=== PATIENT | female | born 1960 | race Caucasian/White ===

== ENCOUNTER → 2016-12-23 | Outpatient (CLI) | payer OTHER ==
[2016-12-23 09:30] LABS: Basophils # (A) 0.1 k/uL (0-0.2); Basophils % (A) 1 %; CH 31.6; CHCM 33.7; Eosinophils # (A) 0.2 k/uL (0-0.7); Eosinophils % (A) 3 %; HCT 45.4 % (34.0-46.0); HDW 2.25; HGB 15.4 gm/dL (11.4-16.0); Luc # (Auto) 0.13; Luc % (Auto) 2; Lymphocytes # (A) 3.4 k/uL (1.0-4.8); Lymphocytes % (A) 42 %; MCH 31.8 pg (25.0-35.0); MCHC 33.8 g/dL (31.0-37.0); Mean Platelet Volume 7.3; Monocytes # (A) 0.3 k/uL (0-1.0); Monocytes % (A) 4 %; Neutrophils # (A) 3.9 k/uL (1.3-7.7); Neutrophils % (A) 48 %; RBC 4.83 m/uL (3.80-5.40); RDW 13.6 % (11.5-15.5); WBC 8.1 k/uL (3.8-10.6); WBC (Perox) 7.61
[2016-12-23 11:07] LABS: Vitamin B12 590 pg/mL (239-931)
[2016-12-23 11:25] LABS: ALT 40 U/L (9-52); AST 27 U/L (14-36); Alkaline Phosphatase 89 U/L (38-126); Anion Gap 11 mmol/L; Blood Urea Nitrogen 17 mg/dL (7-17); Carbon Dioxide 27 mmol/L (22-30); Chloride 104 mmol/L (98-107); Cholesterol 178 mg/dL (<200); Creatine Kinase 60 U/L (30-135); Glucose 91 mg/dL (74-99); HDL Cholesterol 61 mg/dL (40-60); Iron 142 ug/dL (37-170); Non-African American GFR(MDRD) >60 (>60 ml/min/1.73 sqM); Sodium 142 mmol/L (137-145); Total Bilirubin 0.6 mg/dL (0.2-1.3); Total Protein 7.2 g/dL (6.3-8.2); Triglycerides 139 mg/dL (<150)
[2016-12-23 11:34] LABS: % Iron Saturation 56.8 % (20-50); Total Iron Binding Capacity 250 ug/dL (265-497)
[2016-12-23 12:26] LABS: Erythrocyte Sedimentation Rate 8 mm/hr (0-20)
== END | disposition home or self-care (01) ==
LOC: LABWHC1 08:55
PROVIDERS: ATTEND Family Medicine
DX: E78.5 Hyperlipidemia, unspecified (principal); R53.83 Other fatigue
CPT/HCPCS: 36415; 80053; 80061; 82306; 82550; 82607; 83540; 83550; 84439; 84443; 85025; 85652

== ENCOUNTER → 2016-12-30 | Outpatient (CLI) | payer OTHER ==
--- NOTE | 2016-12-31 14:24 | MM ---
Reason for exam: screening (asymptomatic). Last mammogram was performed 2 years and 10 months ago. History: Patient is postmenopausal and has history of colon cancer at age 47. Physical Findings: A clinical breast exam by your physician is recommended on an annual basis and results should be correlated with mammographic findings. MG Screening Mammo w CAD Bilateral CC and MLO view(s) were taken. Prior study comparison: March 10, 2014, bilateral MG screening mammo w CAD. December 31, 2011, bilateral digital screening mammo w/CAD. There are scattered fibroglandular densities. Finding: There are regional calcifications in the left breast consistent with sclerosing adenosis. No significant changes in finding since March 10, 2014 and December 31, 2011. ASSESSMENT: Benign, BI-RAD 2 RECOMMENDATION: Routine screening mammogram of both breasts in 1 year.
== END ==
LOC: RADMAMWWP 16:20
PROVIDERS: ATTEND Family Medicine
DX: Z12.31 Encounter for screening mammogram for malignant neoplasm of breast (principal)

== ENCOUNTER → 2017-12-31 | Outpatient (CLI) | payer BC ==
--- NOTE | 2017-12-31 11:49 | BD ---
EXAMINATION TYPE: Axial Bone Density DATE OF EXAM: 12/31/2017 CLINICAL HISTORY: Height: 64.75 Weight: 124 FRAX RISK QUESTIONS: Alcohol (3 or more units per day): no Family History (Parent hip fracture): no Glucocorticoids (More than 3mos): no (Ex: prednisone, prednisolone, methylprednisolone, dexamethasone, and hydrocortisone). History of Fracture in Adulthood: finger Secondary Osteoporosis: 1. Type 1 Diabetes: no 2. Hyperthyroidism: no 3. Menopause before 45: no 4. Malnutrition: no 5. Chronic liver disease: no Rheumatoid Arthritis: no Current Tobacco Use: no RISK FACTORS HISTORY OF: Family History of Osteoporosis: unknown Active: yes Diet low in dairy products/other sources of calcium: no Postmenopausal woman: yes Take estrogen and/or progesterone medications: no Lost more than 2 inches in height since high school: unsure Frequent falls: no Poor Health: no Hyperparathyroidism: no Adrenal Insufficiency: no MEDICATIONS: Prednisone or other steroids: no Thyroid Medications: no Osteoporosis Medications: no Additional Medications: blood pressure meds, cholesterol meds Additional History: EXAM MEASUREMENTS: Bone mineral densitometry was performed using the [employer] System. Bone mineral density as measured about the Lumbar spine is: ----- L1-L4(G/cm2): 1.139 T Score Values are as follows: ----- L2: -2.0 ----- L3: -0.4 ----- L4: 1.8 ----- L1-L4: -0.3 Bone mineral density has: Decreased -1.9% since study of: 12/31/2011 Bone mineral density about the R hip (g/cm2): 0.757 Bone mineral density about the L hip (g/cm2): 0.745 T Score values are as follows: -----R Neck: -2.0 -----L Neck: -2.1 -----R Total: -1.5 -----L Total: -1.3 Bone mineral density has: Decreased -14.3% since study of: 12/31/2011 IMPRESSION: Osteopenia about the bilateral proximal femora. NOTE: T-SCORE=SD OF THE YOUNG ADULT MEAN.
== END | disposition home or self-care (01) ==
LOC: RADBDWWP 08:19
PROVIDERS: ATTEND Obstetrics & Gynecology
DX: M85.852 Other specified disorders of bone density and structure, left thigh (principal); M85.851 Other specified disorders of bone density and structure, right thigh
CPT/HCPCS: 77080

== ENCOUNTER → 2017-12-31 | Outpatient (CLI) | payer BC ==
--- NOTE | 2018-01-01 10:24 | MM ---
Reason for exam: screening (asymptomatic). Last mammogram was performed 1 year ago. History: Patient is postmenopausal and has history of colon cancer at age 47. Physical Findings: A clinical breast exam by your physician is recommended on an annual basis and results should be correlated with mammographic findings. MG 3D Screening Mammo W/Cad Bilateral CC and MLO view(s) were taken. Prior study comparison: December 30, 2016, bilateral MG screening mammo w CAD. March 10, 2014, bilateral MG screening mammo w CAD. The breast tissue is heterogeneously dense. This may lower the sensitivity of mammography. Finding: There are typically benign punctate, diffuse/scattered calcifications in both breasts. No suspicious abnormality. No significant changes in finding since December 30, 2016 and March 10, 2014. ASSESSMENT: Benign, BI-RAD 2 RECOMMENDATION: Routine screening mammogram of both breasts in 1 year.
== END | disposition home or self-care (01) ==
LOC: RADMAMWWP 08:06
PROVIDERS: ATTEND Obstetrics & Gynecology
DX: Z12.31 Encounter for screening mammogram for malignant neoplasm of breast (principal)
CPT/HCPCS: 77063; 77067

== ENCOUNTER 2018-10-07 09:27 | Day surgery (SDC) | payer BC, OTHER ==
[2018-10-05 11:18] VITALS: BMI 20.7
[~2018-10-07 09:27] MED LIST: LACTATED RINGERS 1,000 ML IV SCH; LIDOCAINE 1% 20 ML VIAL (10MG/ML) FOR IV START INTRADERMA PRN
[2018-10-07] MEDS ORDERED: LACTATED RINGERS 1,000 ML IV ONE (09:46)
[2018-10-07 09:47] VITALS: RESP 18; TEMP 97.8
[2018-10-07] MEDS ORDERED: PROPOFOL 10 MG/ML 20 ML VIAL IV ONE (11:00)
--- NOTE | 2018-10-07 11:14 | P.PCN ---
Date of Procedure: 10/07/18 Procedure(s) Performed: BRIEF HISTORY: Patient is a 58-year-old pleasant female, scheduled for an elective colonoscopy as a part of surveillance of prior history of colon cancer diagnosed 10 years ago. Her last surveillance colonoscopy was 3 years ago in [facility]. PROCEDURE PERFORMED: Colonoscopy. PREOPERATIVE DIAGNOSIS: History of colon cancer diagnosed 10 years ago. IV sedation per Anesthesia. PROCEDURE: After informed consent was obtained, the patient, was brought into the endoscopy unit. IV sedation was administered by Anesthesia under continuous monitoring. Digital rectal examination was normal. Initially the Olympus CF-160 flexible video colonoscope was then inserted in the rectum, gradually advanced into the cecum without any difficulty. Careful examination was performed as the scope was gradually being withdrawn. Ileocecal valve and the appendiceal orifice were visualized and appeared normal. Prep was excellent. Mucosa of the cecum, ascending colon, transverse colon, descending colon, sigmoid colon, and rectum appeared normal. Retroflexion was performed in the rectum and no lesions were seen. The patient tolerated the procedure well. IMPRESSION: Normal-appearing colon from rectum to cecum with no evidence of colorectal neoplasia . RECOMMENDATIONS: Findings of this examination were discussed with the patient as her family. She was advised to have a repeat surveillance coloscopy in 3 years.
[2018-10-07 11:50] VITALS: BP 95/66; PULSE 80
== END 2018-10-07 11:45 | disposition home or self-care (01) ==
LOC: ORWHC2ENDO 09:27
PROVIDERS: ATTEND Internal Medicine Gastroenterology
DX: Z12.11 Encounter for screening for malignant neoplasm of colon (principal); I25.10 Atherosclerotic heart disease of native coronary artery without angina pectoris; I10 Essential (primary) hypertension; E78.5 Hyperlipidemia, unspecified; H40.9 Unspecified glaucoma; H54.40 Blindness, one eye, unspecified eye; I73.00 Raynaud's syndrome without gangrene; G47.33 Obstructive sleep apnea (adult) (pediatric); F41.9 Anxiety disorder, unspecified; K21.9 Gastro-esophageal reflux disease without esophagitis; Z79.82 Long term (current) use of aspirin; Z79.1 Long term (current) use of non-steroidal anti-inflammatories (NSAID); Z85.038 Personal history of other malignant neoplasm of large intestine; Z86.711 Personal history of pulmonary embolism; Z79.899 Other long term (current) drug therapy; Z79.01 Long term (current) use of anticoagulants
CPT/HCPCS: J2704; G0105; 45378

== ENCOUNTER → 2019-03-11 | Outpatient (CLI) | payer OTHER ==
--- NOTE | 2019-03-12 13:49 | MM ---
Reason for exam: screening (asymptomatic). Last mammogram was performed 1 year and 2 months ago. History: Patient is postmenopausal and has history of colon cancer at age 47. Physical Findings: A clinical breast exam by your physician is recommended on an annual basis and results should be correlated with mammographic findings. MG 3D Screening Mammo W/Cad Bilateral CC and MLO view(s) were taken. XCCL view(s) were taken of the right breast. Prior study comparison: December 31, 2017, bilateral MG 3d screening mammo w/cad. December 30, 2016, bilateral MG screening mammo w CAD. There are scattered fibroglandular densities. No significant changes when compared with prior studies. ASSESSMENT: Benign, BI-RAD 2 RECOMMENDATION: Routine screening mammogram of both breasts in 1 year.
== END | disposition home or self-care (01) ==
LOC: RADMAMWWP 11:53
PROVIDERS: ATTEND Family Medicine
DX: Z12.31 Encounter for screening mammogram for malignant neoplasm of breast (principal)
CPT/HCPCS: 77063; 77067

== ENCOUNTER 2019-03-14 16:41 | Inpatient (IN) | payer OTHER ==
[2019-03-14] MEDS ORDERED: ALBUTEROL NEBULIZED 2.5 MG/3 ML INHALATION STA (17:23)
[2019-03-14] MEDS ORDERED: IPRATROPIUM 0.5 MG/2.5 ML NEBU INHALATION STA (17:23)
[2019-03-14] MEDS ORDERED: AZITHROMYCIN 500 MG in SODIUM CHLORIDE 0.9% 250 ML IVPB STA (17:23)
[2019-03-14] MEDS ORDERED: SODIUM CHLORIDE 0.9% 1,000 ML IV STA (17:23)
[2019-03-14] MEDS ORDERED: methylPREDNISolone SOD SUCCI 125 MG/2 ML VIAL IV STA (17:23)
--- NOTE | 2019-03-14 17:44 | XR ---
EXAMINATION TYPE: XR chest 2V DATE OF EXAM: 03/14/2019 COMPARISON: 12/14/2015 HISTORY: Short of breath TECHNIQUE: Frontal and lateral views of the chest are obtained. FINDINGS: There is a mild infiltrate in the midlung palma bilaterally. Heart and mediastinum are no rmal. There is no pleural effusion. There are no hilar masses. There is also a minimal infiltrate at the right lung apex. Bony thorax is intact. IMPRESSION: Bilateral mild pulmonary infiltrates consistent with pneumonia. No heart failure. Normal heart. Pneumonia is ne w compared to old exam.
--- NOTE | 2019-03-14 18:17 | ED ---
URI HPI - General Chief Complaint: Upper Respiratory Infection Stated Complaint: SOB Time Seen by Provider: 03/14/19 17:05 Source: patient, RN notes reviewed, old records reviewed Mode of arrival: ambulatory Limitations: no limitations - History of Present Illness Initial Comments: This is a 4-year-old female the ER for evaluation history of smoking. Patient is recent travel history no sick contacts complaining of increased cough and congestion. Patient has persistent cough currently. Patient was seen by urgent care, diagnosed of bronchitis given antibiotics as she had taken appropriately not been filled appropriate, patient has not been able to smoke secondary to shortness of breath shortness breath is been persistent. She believes that she started of fever and significant shortness of breath with exertion. No current chest pain MD Complaint: fever, cough, nasal congestion -: days(s) Severity: moderate Consistency: constant Improves With: nothing Associated Symptoms: fever, chills, cough, shortness of breath Treatments Prior to Arrival: none - Related Data Home Medications Medication Instructions Recorded Confirmed Celecoxib [CeleBREX] 200 mg PO DAILY 12/14/15 03/14/19 DULoxetine HCL [Cymbalta] 60 mg PO QAM 12/14/15 03/14/19 Losartan [Cozaar] 50 mg PO DAILY 12/14/15 03/14/19 Omeprazole 20 mg PO DAILY 12/14/15 03/14/19 Rivaroxaban [Xarelto] 20 mg PO HS 12/14/15 03/14/19 Timolol 0.5% Ophth Soln [Timoptic 1 drop BOTH EYES BID 12/14/15 03/14/19 0.5% Ophth Soln] Zolpidem [Ambien] 10 mg PO HS 12/14/15 03/14/19 traZODone HCL [Desyrel] 100 mg PO HS PRN 12/14/15 03/14/19 Aspirin [Adult Low Dose Aspirin EC] 81 mg PO DAILY 05/21/17 03/14/19 Atorvastatin [Lipitor] 40 mg PO DAILY 05/21/17 03/14/19 Isosorbide Mononitrate ER [Imdur] 30 mg PO DAILY 05/21/17 03/14/19 amLODIPine [Norvasc] 5 mg PO QAM 05/21/17 03/14/19 DULoxetine HCL [Cymbalta] 30 mg PO HS 10/05/18 03/14/19 Hydrochlorothiazide [Hydrodiuril] 25 mg PO DAILY 10/05/18 03/14/19 Albuterol Inhaler [Ventolin Hfa 1 - 2 puff INHALATION RT-Q6H PRN 03/14/19 03/14/19 Inhaler] Cyclobenzaprine [Flexeril] 10 mg PO DAILY 03/14/19 03/14/19 Sulfamethoxazole/Trimethoprim 1 tab PO Q12H 03/14/19 03/14/19 [Bactrim DS 800-160 mg] methylPREDNISolone [Medrol Dose See Taper PO DIRECTED 03/14/19 03/14/19 Pack] Allergies Allergy/AdvReac Type Severity Reaction Status Date / Time No Known Allergies Allergy Verified 03/14/19 17:17 Review of Systems ROS Statement: Those systems with pertinent positive or pertinent negative responses have been documented in the HPI. ROS Other: All systems not noted in ROS Statement are negative. Past Medical History Past Medical History: Coronary Artery Disease (CAD), Cancer, Eye Disorder, GERD/Reflux, Hyperlipidemia, Hypertension, Pulmonary Embolus (PE), Sleep Apnea/CPAP/BIPAP Additional Past Medical History / Comment(s): Pulmonary Embolism, HX 2 clots inferior vena cava, colo/rectal cancer-surgically removed 2008 est, back pain from arthritis, R eye blindness, glaucoma bilaterally; uses CPAP. RAYNAUD'S. History of Any Multi-Drug Resistant Organisms: None Reported Past Surgical History: Bowel Resection, Hysterectomy, Orthopedic Surgery, Tubal Ligation Additional Past Surgical History / Comment(s): 9" removal of bowel cancer, D&C, venous ablation of L leg varicosity, cyst removed from back, colonoscopy, cervical surgery. Justo wrist sx, Neck fusion, RT KNEE MENISCUS. Past Anesthesia/Blood Transfusion Reactions: Postoperative Nausea & Vomiting (PONV) Additional Past Anesthesia/Blood Transfusion Reaction / Comment(s): PONV one time long ago; AWOKE DURING COLONOSCOPIES. Past Psychological History: Anxiety Smoking Status: Former smoker Past Alcohol Use History: Occasional Past Drug Use History: None Reported - Past Family History Father Family Medical History: Cancer, Deep Vein Thrombosis (DVT) Additional Family Medical History / Comment(s): Lung cancer. Father of a massive CVA Mother Family Medical History: Diabetes Mellitus, Hyperlipidemia, Hypertension Additional Family Medical History / Comment(s): Mother at age 82 yrs. General Exam Limitations: no limitations General appearance: alert, in no apparent distress Head exam: Present: atraumatic, normocephalic, normal inspection Eye exam: Present: normal appearance, EOMI. Absent: scleral icterus, conjunctival injection, periorbital swelling ENT exam: Present: normal exam, mucous membranes moist Neck exam: Present: normal inspection. Absent: tenderness, meningismus, lymphadenopathy Respiratory exam: Present: wheezes, accessory muscle use, decreased breath sounds, prolonged expiratory. Absent: respiratory distress, rales, rhonchi, stridor Cardiovascular Exam: Present: normal rhythm, tachycardia, normal heart sounds. Absent: systolic murmur, diastolic murmur, rubs, gallop, clicks GI/Abdominal exam: Present: soft, normal bowel sounds. Absent: distended, tenderness, guarding, rebound, rigid Extremities exam: Present: normal inspection, full ROM, normal capillary refill. Absent: tenderness, pedal edema, joint swelling, calf tenderness Back exam: Present: normal inspection Neurological exam: Present: alert, oriented X3, CN II-XII intact Psychiatric exam: Present: normal affect, normal mood Skin exam: Present: warm, dry, intact, normal color. Absent: rash Course Vital Signs 03/14/19 03/14/19 03/14/19 16:42 17:27 18:05 Temperature 97.9 F Pulse Rate 108 H 102 H Respiratory 18 18 Rate Blood Pressure 123/72 O2 Sat by Pulse 95 Oximetry 03/14/19 03/14/19 18:25 18:37 Temperature Pulse Rate 102 H 100 Respiratory Rate Blood Pressure O2 Sat by Pulse Oximetry - Reevaluation(s) Reevaluation #1: 03/14/19 18:17 Medical records reviewed Reevaluation #2: 03/14/19 19:20 Patient's feels like her heart is racing, still cough and mildly short of breath Medical Decision Making - Medical Decision Making 58 female the ER with persistent cough and congestion shortness of breath findings of pneumonia. Patient be admitted for continued evaluation and treatment, IV antibiotics steroids and breathing treatments - Lab Data Result diagrams: 03/14/19 18:16 03/14/19 18:16 Lab Results 03/14/19 03/14/19 Range/Units 18:16 18:16 WBC 14.8 H (3.8-10.6) k/uL RBC 4.49 (3.80-5.40) m/uL Hgb 13.8 (11.4-16.0) gm/dL Hct 40.8 (34.0-46.0) % MCV 90.8 (80.0-100.0) fL MCH 30.7 (25.0-35.0) pg MCHC 33.8 (31.0-37.0) g/dL RDW 13.4 (11.5-15.5) % Plt Count 315 (150-450) k/uL Neutrophils % 89 % Lymphocytes % 7 % Monocytes % 3 % Eosinophils % 0 % Basophils % 0 % Neutrophils # 13.1 H (1.3-7.7) k/uL Lymphocytes # 1.0 (1.0-4.8) k/uL Monocytes # 0.5 (0-1.0) k/uL Eosinophils # 0.0 (0-0.7) k/uL Basophils # 0.0 (0-0.2) k/uL Sodium 136 L (137-145) mmol/L Potassium 4.8 (3.5-5.1) mmol/L Chloride 103 (98-107) mmol/L Carbon Dioxide 21 L (22-30) mmol/L Anion Gap 12 mmol/L BUN 23 H (7-17) mg/dL Creatinine 0.89 (0.52-1.04) mg/dL Est GFR (CKD-EPI)AfAm 82 (>60 ml/min/1.73 sqM) Est GFR (CKD-EPI)NonAf 71 (>60 ml/min/1.73 sqM) Glucose 185 H (74-99) mg/dL Calcium 10.1 (8.4-10.2) mg/dL Magnesium 2.0 (1.6-2.3) mg/dL Total Bilirubin 0.3 (0.2-1.3) mg/dL AST 27 (14-36) U/L ALT 23 (9-52) U/L Alkaline Phosphatase 111 (38-126) U/L Total Protein 7.0 (6.3-8.2) g/dL Albumin 4.0 (3.5-5.0) g/dL - Radiology Data Radiology results: report reviewed (Chest x-ray is positive for pneumonia), image reviewed Disposition Clinical Impression: Asthmatic bronchitis, Community acquired pneumonia Disposition: ADMITTED IP TO THIS HOSP Condition: Good Is patient prescribed a controlled substance at d/c from ED?: No Referrals: Charlie Brown MD [Primary Care Provider] - 1-2 days
[2019-03-14 19:08] LABS: Calcium 10.1 mg/dL (8.4-10.2); Potassium 4.8 mmol/L (3.5-5.1); Total Bilirubin 0.3 mg/dL (0.2-1.3)
[2019-03-14 19:10] LABS: Basophils % (A) 0 %; Eosinophils % (A) 0 %; HCT 40.8 % (34.0-46.0); HGB 13.8 gm/dL (11.4-16.0); Lymphocytes % (A) 7 %; MCH 30.7 pg (25.0-35.0); MCHC 33.8 g/dL (31.0-37.0); MCV 90.8 fL (80.0-100.0); Mean Platelet Volume 7.8; Monocytes # (A) 0.5 k/uL (0-1.0); Monocytes % (A) 3 %; Neutrophils # (A) 13.1 k/uL (1.3-7.7); Neutrophils % (A) 89 %; Platelet Count 315 k/uL (150-450); RBC 4.49 m/uL (3.80-5.40); RDW 13.4 % (11.5-15.5); WBC 14.8 k/uL (3.8-10.6)
[2019-03-14] MEDS ORDERED: PNEUMONIA PROTOCOL UTILIZED 1 EACH MISC PO PRN (19:17)
[2019-03-14 19:23] LABS: D-Dimer <0.17 mg/L FEU (<0.60); INR 0.9 (<1.2); Partial Thromboplastin Time 26.4 sec (22.0-30.0); Prothrombin Time 9.7 sec (9.0-12.0)
[2019-03-14] MEDS ORDERED: ONDANSETRON 4 MG/2 ML VIAL IVP STA (19:50)
[2019-03-14] MEDS: IPRATROPIUM-ALBUTEROL 3 ML NEB INHALATION SCH (21:03)
[2019-03-15] MEDS: RIVAROXABAN 20 MG TAB PO SCH ×2 (00:07→20:45)
[2019-03-15] MEDS: ZOLPIDEM 10 MG TAB PO SCH ×2 (00:07→20:45)
[2019-03-15] MEDS: TIMOLOL 0.5% OPHTH DROPS 5 ML BTL BOTH EYES SCH ×3 (00:07→20:46)
[2019-03-15] MEDS: SODIUM CHLORIDE 0.9% 1,000 ML IV SCH ×3 (00:08→16:18)
[2019-03-15] MEDS: traZODone HCL 100 MG TAB PO PRN (00:15)
[2019-03-15] MEDS: methylPREDNISolone SOD SUCCI 125 MG/2 ML VIAL IV SCH ×4 (00:16→17:35)
[2019-03-15] MEDS: IPRATROPIUM-ALBUTEROL 3 ML NEB INHALATION SCH ×6 (07:12→23:23)
[2019-03-15 07:38] LABS: Glucose,Whole Blood 147 mg/dL (75-99)
[2019-03-15] MEDS: amLODIPine 5 MG TAB PO SCH (07:41)
[2019-03-15] MEDS: ATORVASTATIN 40 MG TAB PO SCH (07:41)
[2019-03-15] MEDS: ASPIRIN 81 MG PO SCH (07:41)
[2019-03-15] MEDS: PANTOPRAZOLE 40 MG TABLET PO SCH (07:41)
[2019-03-15] MEDS: DULoxetine HCL 30 MG CAPSULE.DR PO SCH (07:41)
[2019-03-15] MEDS: CYCLOBENZAPRINE 10 MG TAB PO SCH (07:41)
[2019-03-15] MEDS: INSULIN ASPART (NovoLOG) 100 UNIT/ML VIAL SQ SCH ×4 (07:42→20:44)
[2019-03-15] MEDS: HYDROCHLOROTHIAZIDE 25 MG TAB PO SCH (07:42)
[2019-03-15] MEDS: ISOSORBIDE MONONITRATE ER 30 MG TAB.ER.24H PO SCH (07:42)
[2019-03-15] MEDS: LOSARTAN 50 MG TAB PO SCH (07:42)
[2019-03-15] MEDS: MELOXICAM 7.5 MG TAB PO SCH (07:42)
--- NOTE | 2019-03-15 10:12 | XR ---
EXAMINATION TYPE: XR chest 2V DATE OF EXAM: 03/15/2019 COMPARISON: 03/14/2019 TECHNIQUE: PA and lateral views submitted. HISTORY: Shortness of breath FINDINGS: Coarsened interstitium with patchy bilateral upper lobe right perihilar infiltrate. Findings similar to the prior exam. Heart size stable. Atherosclerotic change aorta. No pneumothorax. Arthropathy of t he shoulders. No sizable pleural effusion. Degenerative change the spine. IMPRESSION: 1. Patchy bilateral upper lobe and right perihilar infiltrate correlate for pneumonia with superimpos ed interstitial pneumonitis or bronchitis. Atypical CHF with less likely consideration.
[2019-03-15 11:37] LABS: Glucose,Whole Blood 126 mg/dL (75-99)
[2019-03-15] MEDS: AZITHROMYCIN 500 MG in SODIUM CHLORIDE 0.9% 250 ML IVPB SCH (16:21)
[2019-03-15 17:15] LABS: Glucose,Whole Blood 297 mg/dL (75-99)
[2019-03-15 20:12] LABS: Glucose,Whole Blood 71 mg/dL (75-99)
--- NOTE | 2019-03-15 21:46 | P.HPIM ---
History of Present Illness H&P Date: 03/15/19 Chief Complaint: short of breath history of presenting complaint: this is a pleasant 58-year-old patient of Dr. Brown. Chronic stable medical conditions include GERD, hyperlipidemia, hypertension, pulmonary embolism on Xarelto,(s) sleep apnea, colorectal cancer surgically removed in 2008, back pain from arthritis, blindness in the right eye, patient does use a CPAP. Raynaud's disease.. Patient presented with 10 days of starting of the cord. Nasal stuffiness. Was given antibiotics per family doctor not with much improvement. Continue to feel congested. No fever or chills. No sputum production. Just felt tired rundown. Patient has been wheezing having a cough. finally decided to present to the ER. Started on steroids bronchodilators. Review of systems: GEN.: [tired] EYES: [None] HEENT: [None] NECK: [None] RESPIRATORY: [as above] CARDIOVASCULAR: [None] GASTROINTESTINAL: [None] GENITOURINARY: [None] MUSCULOSKELETAL: [Nback pain] LYMPHATICS: [None] HEMATOLOGICAL: [None] PSYCHIATRY: [None] NEUROLOGICAL: [None Social history: daughter lives with her. Smoking half a pack a day for over 42 years. Not employed. occasional alcohol. Physical examination: VITAL SIGNS: [97.9, 108, 18, 123/72, 95% on room air] GENERAL: [BMI 22.5, sitting upshe short of breath EYES: [Pupils equal. Conjunctiva sigifredo]l. HEENT: [External appearance of nose and ears normal, oral cavity grossly normal]. NECK: [JVD not raised; masses not palpable]. HEART: [First and second heart sounds are normal; no edema]. LUNGS:[ Respiratory rate increased, diminished breath sounds prolonged expiration and wheezing]. ABDOMEN: [Soft, nontender, liver spleen not palpable, no masses palpable]. PSYCH: [Alert and oriented x3; mood and affect sigifredo]l. NEUROLOGICAL: [Cranial nerves grossly intact; no facial asymmetry, power and sensation grossly intact]. LYMPHATICS: [No lymph nodes palpable in the axilla and neck] INVESTIGATIONS, reviewed in the clinical context: white count 14.18 over 30.8 potassium 4.8 bun 23 creatinine 0.89 Troponin 1 negative proBNP 848 EKG tracing-shows sinus tachycardia some evidence of P pulmonale, left bundle- branch block Chest x-ray film personally reviewed by me-Shows hyperinflation and infiltrates Assessment: -Pneumonia suspect viral with pneumonitis -Acute COPD exacerbation, and a current smoker -Chronic nicotine dependence patient cigarette smoker -GERD -Hyperlipidemia -Essential hypertension -Chronic pulmonary embolism on Balsam to -Obstructive sleep apnea uses CPAP Plan: patient to be on the safer side has been put on ceftriaxone and Zithromax. it is possible it is viral pneumonitis. Patient also in IV Solu-Medrol DuoNeb. We'll add IV Solu-Medrol and also inhaled steroids. Care was discussed with the patient. Questions were answered. Smoke cessation counseling: This was done with the patient. Nicotine patch is being given. More than 3 minutes was spent for this] Past Medical History Past Medical History: Coronary Artery Disease (CAD), Cancer, Eye Disorder, GERD/Reflux, Hyperlipidemia, Hypertension, Pulmonary Embolus (PE), Sleep Apnea/CPAP/BIPAP Additional Past Medical History / Comment(s): Pulmonary Embolism, HX 2 clots inferior vena cava, colo/rectal cancer-surgically removed 2008 est, back pain from arthritis, R eye blindness, glaucoma bilaterally; uses CPAP. RAYNAUD'S. History of Any Multi-Drug Resistant Organisms: None Reported Past Surgical History: Bowel Resection, Hysterectomy, Orthopedic Surgery, Tubal Ligation Additional Past Surgical History / Comment(s): 9" removal of bowel cancer, D&C, venous ablation of L leg varicosity, cyst removed from back, colonoscopy, cervical surgery. Justo wrist sx, Neck fusion, RT KNEE MENISCUS. Past Anesthesia/Blood Transfusion Reactions: Postoperative Nausea & Vomiting (PONV) Additional Past Anesthesia/Blood Transfusion Reaction / Comment(s): PONV one time long ago; AWOKE DURING COLONOSCOPIES. Past Psychological History: Anxiety Additional Psychological History / Comment(s): Pt resides with daughter. She is independent. Smoking Status: Current every day smoker Past Alcohol Use History: Occasional Additional Past Alcohol Use History / Comment(s): Pt started smoking in 1976 Past Drug Use History: None Reported - Past Family History Father Family Medical History: Cancer, Deep Vein Thrombosis (DVT) Additional Family Medical History / Comment(s): Lung cancer. Father of a massive CVA Mother Family Medical History: Diabetes Mellitus, Hyperlipidemia, Hypertension Additional Family Medical History / Comment(s): Mother at age 82 yrs. Medications and Allergies Home Medications Medication Instructions Recorded Confirmed Type Celecoxib [CeleBREX] 200 mg PO DAILY 12/14/15 03/14/19 History DULoxetine HCL [Cymbalta] 60 mg PO QAM 12/14/15 03/14/19 History Losartan [Cozaar] 50 mg PO DAILY 12/14/15 03/14/19 History Omeprazole 20 mg PO DAILY 12/14/15 03/14/19 History Rivaroxaban [Xarelto] 20 mg PO HS 12/14/15 03/14/19 History Timolol 0.5% Ophth Soln [Timoptic 1 drop BOTH EYES BID 12/14/15 03/14/19 History 0.5% Ophth Soln] Zolpidem [Ambien] 10 mg PO HS 12/14/15 03/14/19 History traZODone HCL [Desyrel] 100 mg PO HS PRN 12/14/15 03/14/19 History Aspirin [Adult Low Dose Aspirin EC] 81 mg PO DAILY 05/21/17 03/14/19 History Atorvastatin [Lipitor] 40 mg PO DAILY 05/21/17 03/14/19 History Isosorbide Mononitrate ER [Imdur] 30 mg PO DAILY 05/21/17 03/14/19 History amLODIPine [Norvasc] 5 mg PO QAM 05/21/17 03/14/19 History DULoxetine HCL [Cymbalta] 30 mg PO HS 10/05/18 03/14/19 History Hydrochlorothiazide [Hydrodiuril] 25 mg PO DAILY 10/05/18 03/14/19 History Albuterol Inhaler [Ventolin Hfa 1 - 2 puff INHALATION RT-Q6H PRN 03/14/19 03/14/19 History Inhaler] Cyclobenzaprine [Flexeril] 10 mg PO DAILY 03/14/19 03/14/19 History Sulfamethoxazole/Trimethoprim 1 tab PO Q12H 03/14/19 03/14/19 History [Bactrim DS 800-160 mg] methylPREDNISolone [Medrol Dose See Taper PO DIRECTED 03/14/19 03/14/19 History Pack] Allergies Allergy/AdvReac Type Severity Reaction Status Date / Time No Known Allergies Allergy Verified 03/14/19 17:17 Physical Exam Vitals: Vital Signs Temp Pulse Pulse Pulse Resp BP BP 03/15/19 07:22 88 03/15/19 07:12 88 03/15/19 07:00 97.8 F 91 16 110/67 03/14/19 22:00 81 16 03/14/19 21:45 97.5 F L 81 16 125/70 03/14/19 20:59 18 03/14/19 19:44 97.7 F 102 H 20 114/72 03/14/19 18:37 100 03/14/19 18:25 102 H 03/14/19 18:05 102 H 03/14/19 17:27 18 03/14/19 16:42 97.9 F 108 H 18 123/72 Pulse Ox 03/15/19 07:22 03/15/19 07:12 03/15/19 07:00 92 L 03/14/19 22:00 03/14/19 21:45 86 L 03/14/19 20:59 98 03/14/19 19:44 97 03/14/19 18:37 03/14/19 18:25 03/14/19 18:05 03/14/19 17:27 03/14/19 16:42 95 Intake and Output 03/14/19 03/15/19 03/15/19 22:59 06:59 14:59 Intake Total 100 300 Balance 100 300 Intake: Intake, IV Titration 100 Amount Sodium Chloride 0.9% 1, 100 000 ml @ 100 mls/hr IV . Q10H [facility] Rx#:[id number] Oral 300 Other: # Voids 1 Weight 61.235 kg Results CBC & Chem 7: 03/14/19 18:16 03/14/19 18:16 Labs: Abnormal Lab Results - Last 24 Hours (Table) 03/14/19 03/14/19 03/15/19 Range/Units 18:16 18:16 07:23 WBC 14.8 H (3.8-10.6) k/uL Neutrophils # 13.1 H (1.3-7.7) k/uL Sodium 136 L (137-145) mmol/L Carbon Dioxide 21 L (22-30) mmol/L BUN 23 H (7-17) mg/dL Glucose 185 H (74-99) mg/dL POC Glucose (mg/dL) 147 H (75-99) mg/dL Thrombosis Risk Factor Assmnt - Choose All That Apply Any of the Below Risk Factors Present?: Yes Each Factor Represents 1 point: Abnormal pulmonary function (COPD), Age 41-60 years Other Risk Factors: Yes Each Risk Factor Represents 3 Points: Family history of DVT/PE, History of DVT/PE Thrombosis Risk Factor Assessment Total Risk Factor Score: 8 Thrombosis Risk Factor Assessment Level: High Risk
[2019-03-15] MEDS: BUDESONIDE 1 MG/2 ML NEBU INHALATION SCH (22:07)
[2019-03-15] MEDS: NICOTINE 21MG/24HR PATCH TRANSDERM SCH (22:14)
[2019-03-16] MEDS: methylPREDNISolone SOD SUCCI 40 MG/ML 1 ML VIAL IV SCH ×4 (01:58→23:30)
[2019-03-16] MEDS: SODIUM CHLORIDE 0.9% 1,000 ML IV SCH ×3 (01:59→16:28)
[2019-03-16] MEDS: IPRATROPIUM-ALBUTEROL 3 ML NEB INHALATION SCH ×5 (03:37→20:41)
[2019-03-16 06:56] LABS: Glucose,Whole Blood 115 mg/dL (75-99)
[2019-03-16] MEDS: INSULIN ASPART (NovoLOG) 100 UNIT/ML VIAL SQ SCH ×4 (07:45→20:54)
[2019-03-16] MEDS: MELOXICAM 7.5 MG TAB PO SCH (07:49)
[2019-03-16] MEDS: HYDROCHLOROTHIAZIDE 25 MG TAB PO SCH (07:49)
[2019-03-16] MEDS: DULoxetine HCL 30 MG CAPSULE.DR PO SCH (07:50)
[2019-03-16] MEDS: LOSARTAN 50 MG TAB PO SCH (07:50)
[2019-03-16] MEDS: CYCLOBENZAPRINE 10 MG TAB PO SCH (07:50)
[2019-03-16] MEDS: NICOTINE 21MG/24HR PATCH TRANSDERM SCH (07:50)
[2019-03-16] MEDS: ATORVASTATIN 40 MG TAB PO SCH (07:50)
[2019-03-16] MEDS: ASPIRIN 81 MG PO SCH (07:50)
[2019-03-16] MEDS: PANTOPRAZOLE 40 MG TABLET PO SCH (07:50)
[2019-03-16] MEDS: ISOSORBIDE MONONITRATE ER 30 MG TAB.ER.24H PO SCH (07:50)
[2019-03-16] MEDS: amLODIPine 5 MG TAB PO SCH (07:50)
[2019-03-16] MEDS: TIMOLOL 0.5% OPHTH DROPS 5 ML BTL BOTH EYES SCH ×2 (07:51→20:54)
[2019-03-16] MEDS ORDERED: ACETAMINOPHEN TAB 325 MG TAB PO PRN (07:51)
[2019-03-16] MEDS: BUDESONIDE 1 MG/2 ML NEBU INHALATION SCH ×2 (09:19→20:41)
[2019-03-16 11:54] LABS: Glucose,Whole Blood 124 mg/dL (75-99)
[2019-03-16] MEDS: AZITHROMYCIN 500 MG in SODIUM CHLORIDE 0.9% 250 ML IVPB SCH (16:28)
[2019-03-16 16:57] LABS: Glucose,Whole Blood 237 mg/dL (75-99)
[2019-03-16 20:25] LABS: Glucose,Whole Blood 136 mg/dL (75-99)
[2019-03-16] MEDS: RIVAROXABAN 20 MG TAB PO SCH (20:54)
[2019-03-16] MEDS: ZOLPIDEM 10 MG TAB PO SCH (20:54)
[2019-03-16] MEDS: traZODone HCL 100 MG TAB PO PRN (20:54)
--- NOTE | 2019-03-16 22:11 | P.PN ---
Progress Note - Text Progress Note Date: 03/16/19 Chief Complaint: short of breath history of presenting complaint interval history this is a pleasant 58-year-old patient of Dr. Brown. Chronic stable medical conditions include GERD, hyperlipidemia, hypertension, pulmonary embolism on Xarelto,(s) sleep apnea, colorectal cancer surgically removed in 2008, back pain from arthritis, blindness in the right eye, patient does use a CPAP. Raynaud's disease.. Patient presented with 10 days of starting of the cord. Nasal stuffiness. Was given antibiotics per family doctor not with much improvement. Continue to feel congested. No fever or chills. No sputum production. Just felt tired rundown. Patient has been wheezing having a cough. finally decided to present to the ER. Started on steroids bronchodilators. Admitted with bilateral pneumonitis and acute COPD exacerbation. Today-still short of breath, wheezing, tired, slight cough. Tired. ate small amount. Up in bed. Progress review of systems Active Medications Acetaminophen (Tylenol Tab) 650 mg PO Q4HR PRN PRN Reason: Fever and/ or Mild Pain Last Admin: 03/16/19 07:58 Dose: 650 mg Documented by: Albuterol/Ipratropium (Duoneb 0.5 Mg-3 Mg/3 Ml Soln) 3 ml INHALATION RT-Q4H [facility] Last Admin: 03/16/19 20:41 Dose: 3 ml Documented by: Amlodipine Besylate (Norvasc) 5 mg PO QAM [facility] Last Admin: 03/16/19 07:50 Dose: 5 mg Documented by: Aspirin (Aspirin) 81 mg PO DAILY [facility] Last Admin: 03/16/19 07:50 Dose: 81 mg Documented by: Atorvastatin Calcium (Lipitor) 40 mg PO DAILY [facility] Last Admin: 03/16/19 07:50 Dose: 40 mg Documented by: Azithromycin (Zithromax) 500 mg PO Q24H [facility] Budesonide (Pulmicort) 1 mg INHALATION RT-BID [facility] Last Admin: 03/16/19 20:41 Dose: 1 mg Documented by: Cyclobenzaprine HCl (Flexeril) 10 mg PO DAILY [facility] Last Admin: 03/16/19 07:50 Dose: 10 mg Documented by: Duloxetine HCl (Cymbalta) 60 mg PO QAM [facility] Last Admin: 03/16/19 07:50 Dose: 60 mg Documented by: Hydrochlorothiazide (Hydrodiuril) 25 mg PO DAILY [facility] Last Admin: 03/16/19 07:49 Dose: 25 mg Documented by: Sodium Chloride (Saline 0.9%) 1,000 mls @ 100 mls/hr IV .Q10H [facility] Last Admin: 03/16/19 16:28 Dose: 100 mls/hr Documented by: Ceftriaxone Sodium 1 gm/ (Sodium Chloride) 50 mls @ 100 mls/hr IVPB Q24H [facility] Last Admin: 03/16/19 19:34 Dose: Not Given Documented by: Insulin Aspart (Novolog) 0 unit SQ ACHS [facility]; Protocol Last Admin: 03/16/19 20:54 Dose: Not Given Documented by: Isosorbide Mononitrate (Imdur) 30 mg PO DAILY [facility] Last Admin: 03/16/19 07:50 Dose: 30 mg Documented by: Losartan Potassium (Cozaar) 50 mg PO DAILY [facility] Last Admin: 03/16/19 07:50 Dose: 50 mg Documented by: Meloxicam (Mobic) 7.5 mg PO DAILY [facility] Last Admin: 03/16/19 07:49 Dose: 7.5 mg Documented by: Methylprednisolone Sodium Succinate (Solu-Medrol) 40 mg IV Q8HR [facility] Last Admin: 03/16/19 16:28 Dose: 40 mg Documented by: Miscellaneous Information (Pneumonia Protocol Utilized) 1 each PO ONCE PRN PRN Reason: Per Protocol Nicotine (Habitrol 21mg/24hr Patch) 1 patch TRANSDERM DAILY [facility] Last Admin: 03/16/19 07:50 Dose: 1 patch Documented by: Pantoprazole Sodium (Protonix) 40 mg PO DAILY@0730 [facility] Last Admin: 03/16/19 07:50 Dose: 40 mg Documented by: Rivaroxaban (Xarelto) 20 mg PO HS [facility] Last Admin: 03/16/19 20:54 Dose: 20 mg Documented by: Timolol Maleate (Timoptic) 1 drops BOTH EYES BID [facility] Last Admin: 03/16/19 20:54 Dose: 1 drops Documented by: Trazodone HCl (Desyrel) 100 mg PO HS PRN PRN Reason: Insomnia Last Admin: 03/16/19 20:54 Dose: 100 mg Documented by: Zolpidem Tartrate (Ambien) 10 mg PO HS [facility] Last Admin: 03/16/19 20:54 Dose: 10 mg Documented by: Physical examination: VITAL SIGNS: 98.4, 92, 16, 121/73, 93% on 2 L GENERAL: Sitting up in bed, tired appearing EYES: Pupils equal. Conjunctiva normal. HEENT: External appearance of nose and ears normal, oral cavity grossly normal. NECK: JVD not raised; masses not palpable. HEART: First and second heart sounds are normal; no edema. LUNGS: Respiratory rate increased, diminished breath sounds prolonged expiration and wheezing. ABDOMEN: Soft, nontender, liver spleen not palpable, no masses palpable. PSYCH: Alert and oriented x3; mood and affect anxious. INVESTIGATIONS, reviewed in the clinical context: Accu-Cheks 115, 124, 237, Admission testing: white count 14.18 over 30.8 potassium 4.8 bun 23 creatinine 0.89 Troponin 1 negative proBNP 848 EKG tracing-shows sinus tachycardia some evidence of P pulmonale, left bundle- branch block Chest x-ray film personally reviewed by me-Shows hyperinflation and infiltrates Assessment: -Pneumonia suspect viral with pneumonitis, slow to respond -Acute COPD exacerbation, in a current smoker, slow to respond -Chronic nicotine dependence patient cigarette smoker -GERD -Hyperlipidemia -Essential hypertension -Chronic pulmonary embolism on Xarelto -Obstructive sleep apnea uses CPAP -Left bundle-branch block Plan: Continue with bronchodilators, steroids,. Care was discussed with the patient. Encouraged to sit up in a chair. Patient will need to be here for at least 2 days.
[2019-03-17] MEDS: IPRATROPIUM-ALBUTEROL 3 ML NEB INHALATION SCH ×7 (00:01→23:14)
[2019-03-17 07:14] LABS: Glucose,Whole Blood 138 mg/dL (75-99)
[2019-03-17] MEDS: methylPREDNISolone SOD SUCCI 40 MG/ML 1 ML VIAL IV SCH ×3 (07:41→23:22)
[2019-03-17] MEDS: INSULIN ASPART (NovoLOG) 100 UNIT/ML VIAL SQ SCH ×4 (07:41→20:58)
[2019-03-17] MEDS: PANTOPRAZOLE 40 MG TABLET PO SCH (07:41)
[2019-03-17] MEDS: ISOSORBIDE MONONITRATE ER 30 MG TAB.ER.24H PO SCH (07:41)
[2019-03-17] MEDS: DULoxetine HCL 30 MG CAPSULE.DR PO SCH (07:41)
[2019-03-17] MEDS: NICOTINE 21MG/24HR PATCH TRANSDERM SCH (07:41)
[2019-03-17] MEDS: LOSARTAN 50 MG TAB PO SCH (07:41)
[2019-03-17] MEDS: CYCLOBENZAPRINE 10 MG TAB PO SCH (07:41)
[2019-03-17] MEDS: amLODIPine 5 MG TAB PO SCH (07:42)
[2019-03-17] MEDS: ASPIRIN 81 MG PO SCH (07:42)
[2019-03-17] MEDS: HYDROCHLOROTHIAZIDE 25 MG TAB PO SCH (07:42)
[2019-03-17] MEDS: ATORVASTATIN 40 MG TAB PO SCH (07:42)
[2019-03-17] MEDS: MELOXICAM 7.5 MG TAB PO SCH (07:42)
[2019-03-17] MEDS: SODIUM CHLORIDE 0.9% 1,000 ML IV SCH ×3 (07:52→19:12)
[2019-03-17] MEDS: TIMOLOL 0.5% OPHTH DROPS 5 ML BTL BOTH EYES SCH ×2 (07:52→20:38)
[2019-03-17] MEDS: BUDESONIDE 1 MG/2 ML NEBU INHALATION SCH ×2 (09:28→21:16)
[2019-03-17] MEDS ORDERED: FLUCONAZOLE 100 MG TAB PO ONE (11:14)
[2019-03-17 11:54] LABS: Glucose,Whole Blood 153 mg/dL (75-99)
[2019-03-17 16:58] LABS: Glucose,Whole Blood 125 mg/dL (75-99)
[2019-03-17] MEDS: AZITHROMYCIN 500 MG TAB PO SCH (17:09)
[2019-03-17] MEDS: RIVAROXABAN 20 MG TAB PO SCH (20:38)
[2019-03-17] MEDS: traZODone HCL 100 MG TAB PO PRN (20:38)
[2019-03-17] MEDS: ZOLPIDEM 10 MG TAB PO SCH (20:39)
[2019-03-17 20:55] LABS: Glucose,Whole Blood 147 mg/dL (75-99)
--- NOTE | 2019-03-17 23:28 | P.PN ---
Progress Note - Text Progress Note Date: 03/17/19 Chief Complaint: short of breath history of presenting complaint interval history this is a pleasant 58-year-old patient of Dr. Brown. Chronic stable medical conditions include GERD, hyperlipidemia, hypertension, pulmonary embolism on Xarelto,(s) sleep apnea, colorectal cancer surgically removed in 2008, back pain from arthritis, blindness in the right eye, patient does use a CPAP. Raynaud's disease.. Patient presented with 10 days of starting of the cord. Nasal stuffiness. Was given antibiotics per family doctor not with much improvement. Continue to feel congested. No fever or chills. No sputum production. Just felt tired rundown. Patient has been wheezing having a cough. finally decided to present to the ER. Started on steroids bronchodilators. Admitted with bilateral pneumonitis and acute COPD exacerbation. Today-wheezing is slowly improving. Bit of a congested cough. Appetite improving. Still tired. Review of systems: Was done for constitutional, cardiovascular, GI, pulmonary. relevant finding as above Active Medications Acetaminophen (Tylenol Tab) 650 mg PO Q4HR PRN PRN Reason: Fever and/ or Mild Pain Last Admin: 03/16/19 07:58 Dose: 650 mg Documented by: Albuterol/Ipratropium (Duoneb 0.5 Mg-3 Mg/3 Ml Soln) 3 ml INHALATION RT-Q4H [facility] Last Admin: 03/17/19 23:14 Dose: Not Given Documented by: Amlodipine Besylate (Norvasc) 5 mg PO QAM [facility] Last Admin: 03/17/19 07:42 Dose: 5 mg Documented by: Aspirin (Aspirin) 81 mg PO DAILY [facility] Last Admin: 03/17/19 07:42 Dose: 81 mg Documented by: Atorvastatin Calcium (Lipitor) 40 mg PO DAILY [facility] Last Admin: 03/17/19 07:42 Dose: 40 mg Documented by: Azithromycin (Zithromax) 500 mg PO Q24H [facility] Last Admin: 03/17/19 17:09 Dose: 500 mg Documented by: Budesonide (Pulmicort) 1 mg INHALATION RT-BID [facility] Last Admin: 03/17/19 21:16 Dose: 1 mg Documented by: Cyclobenzaprine HCl (Flexeril) 10 mg PO DAILY [facility] Last Admin: 03/17/19 07:41 Dose: 10 mg Documented by: Duloxetine HCl (Cymbalta) 60 mg PO QAM [facility] Last Admin: 03/17/19 07:41 Dose: 60 mg Documented by: Fluconazole (Diflucan) 100 mg PO DAILY [facility] Hydrochlorothiazide (Hydrodiuril) 25 mg PO DAILY [facility] Last Admin: 03/17/19 07:42 Dose: 25 mg Documented by: Sodium Chloride (Saline 0.9%) 1,000 mls @ 100 mls/hr IV .Q10H [facility] Last Admin: 03/17/19 19:12 Dose: 100 mls/hr Documented by: Ceftriaxone Sodium 1 gm/ (Sodium Chloride) 50 mls @ 100 mls/hr IVPB Q24H [facility] Last Admin: 03/17/19 19:13 Dose: 100 mls/hr Documented by: Insulin Aspart (Novolog) 0 unit SQ ACHS [facility]; Protocol Last Admin: 03/17/19 20:58 Dose: 1 unit Documented by: Isosorbide Mononitrate (Imdur) 30 mg PO DAILY [facility] Last Admin: 03/17/19 07:41 Dose: 30 mg Documented by: Losartan Potassium (Cozaar) 50 mg PO DAILY [facility] Last Admin: 03/17/19 07:41 Dose: 50 mg Documented by: Meloxicam (Mobic) 7.5 mg PO DAILY [facility] Last Admin: 03/17/19 07:42 Dose: 7.5 mg Documented by: Methylprednisolone Sodium Succinate (Solu-Medrol) 40 mg IV Q8HR [facility] Last Admin: 03/17/19 23:22 Dose: 40 mg Documented by: Miscellaneous Information (Pneumonia Protocol Utilized) 1 each PO ONCE PRN PRN Reason: Per Protocol Nicotine (Habitrol 21mg/24hr Patch) 1 patch TRANSDERM DAILY [facility] Last Admin: 03/17/19 07:41 Dose: 1 patch Documented by: Pantoprazole Sodium (Protonix) 40 mg PO DAILY@0730 [facility] Last Admin: 03/17/19 07:41 Dose: 40 mg Documented by: Rivaroxaban (Xarelto) 20 mg PO HS [facility] Last Admin: 03/17/19 20:38 Dose: 20 mg Documented by: Timolol Maleate (Timoptic) 1 drops BOTH EYES BID [facility] Last Admin: 03/17/19 20:38 Dose: 1 drops Documented by: Trazodone HCl (Desyrel) 100 mg PO HS PRN PRN Reason: Insomnia Last Admin: 03/17/19 20:38 Dose: 100 mg Documented by: Zolpidem Tartrate (Ambien) 10 mg PO HS [facility] Last Admin: 03/17/19 20:39 Dose: 10 mg Documented by: Physical examination: VITAL SIGNS: 97.9, 84, 20, 142/87, 95% room air GENERAL: Sitting up in bed, tired appearing EYES: Pupils equal. Conjunctiva normal. HEENT: External appearance of nose and ears normal, white spots in the pharynx NECK: JVD not raised; masses not palpable. HEART: First and second heart sounds are normal; no edema. LUNGS: Respiratory rate increased, diminished breath sounds prolonged expiration and less wheezing. ABDOMEN: Soft, nontender, liver spleen not palpable, no masses palpable. PSYCH: Alert and oriented x3; mood and affect anxious. INVESTIGATIONS, reviewed in the clinical context: Accu-Cheks 115, 124, 237, Admission testing: white count 14.18 over 30.8 potassium 4.8 bun 23 creatinine 0.89 Troponin 1 negative proBNP 848 EKG tracing-shows sinus tachycardia some evidence of P pulmonale, left bundle- branch block Chest x-ray film personally reviewed by me-Shows hyperinflation and infiltrates Assessment: -Pneumonia suspect viral with pneumonitis, slow to respond -Acute COPD exacerbation, in a current smoker, slow to respond -Acute oropharyngeal and possible tracheal candidiasis -Chronic nicotine dependence patient cigarette smoker -GERD -Hyperlipidemia -Essential hypertension -Chronic pulmonary embolism on Xarelto -Obstructive sleep apnea uses CPAP -Left bundle-branch block Plan: Continue with bronchodilators, steroids,. Told the patient to gargle 4 times a day. Diflucan 200 was given now and start 100 from tomorrow. Expect patient to be here for 1 or 2 days
[2019-03-18] MEDS: IPRATROPIUM-ALBUTEROL 3 ML NEB INHALATION SCH ×4 (03:42→16:12)
[2019-03-18 07:15] LABS: Glucose,Whole Blood 125 mg/dL (75-99)
[2019-03-18] MEDS: INSULIN ASPART (NovoLOG) 100 UNIT/ML VIAL SQ SCH ×3 (07:21→17:27)
[2019-03-18] MEDS: ISOSORBIDE MONONITRATE ER 30 MG TAB.ER.24H PO SCH (07:43)
[2019-03-18] MEDS: methylPREDNISolone SOD SUCCI 40 MG/ML 1 ML VIAL IV SCH ×2 (07:43→17:26)
[2019-03-18] MEDS: CYCLOBENZAPRINE 10 MG TAB PO SCH (07:43)
[2019-03-18] MEDS: DULoxetine HCL 30 MG CAPSULE.DR PO SCH (07:43)
[2019-03-18] MEDS: NICOTINE 21MG/24HR PATCH TRANSDERM SCH (07:43)
[2019-03-18] MEDS: MELOXICAM 7.5 MG TAB PO SCH (07:44)
[2019-03-18] MEDS: LOSARTAN 50 MG TAB PO SCH (07:44)
[2019-03-18] MEDS: ATORVASTATIN 40 MG TAB PO SCH (07:44)
[2019-03-18] MEDS: amLODIPine 5 MG TAB PO SCH (07:44)
[2019-03-18] MEDS: HYDROCHLOROTHIAZIDE 25 MG TAB PO SCH (07:44)
[2019-03-18] MEDS: ASPIRIN 81 MG PO SCH (07:44)
[2019-03-18] MEDS: PANTOPRAZOLE 40 MG TABLET PO SCH (07:44)
[2019-03-18] MEDS: TIMOLOL 0.5% OPHTH DROPS 5 ML BTL BOTH EYES SCH (07:45)
[2019-03-18] MEDS ORDERED: FLUCONAZOLE 100 MG TAB PO SCH (09:00)
[2019-03-18] MEDS: BUDESONIDE 1 MG/2 ML NEBU INHALATION SCH (09:26)
[2019-03-18 12:27] LABS: Glucose,Whole Blood 182 mg/dL (75-99)
[2019-03-18 13:08] VITALS: BP 126/70; RESP 19; TEMP 97.9
[2019-03-18 13:33] VITALS: PULSE 88
[2019-03-18] MEDS: SODIUM CHLORIDE 0.9% 1,000 ML IV SCH (15:33)
[2019-03-18] MEDS: AZITHROMYCIN 500 MG TAB PO SCH (17:26)
[2019-03-18 17:28] LABS: Glucose,Whole Blood 124 mg/dL (75-99)
== END 2019-03-18 17:53 | disposition home or self-care (01) | DRG 190 ==
LOC: EC 16:41 → 4MS4W 19:19
PROVIDERS: ADMIT Hospitalist; ATTEND Hospitalist
DX: J44.0 Chronic obstructive pulmonary disease with (acute) lower respiratory infection (principal); J12.9 Viral pneumonia, unspecified; I27.82 Chronic pulmonary embolism; B37.89 Other sites of candidiasis; J44.1 Chronic obstructive pulmonary disease with (acute) exacerbation; Z79.01 Long term (current) use of anticoagulants; E78.5 Hyperlipidemia, unspecified; F17.210 Nicotine dependence, cigarettes, uncomplicated; F41.9 Anxiety disorder, unspecified; G47.00 Insomnia, unspecified; G47.33 Obstructive sleep apnea (adult) (pediatric); Z99.89 Dependence on other enabling machines and devices; Z85.038 Personal history of other malignant neoplasm of large intestine; H40.9 Unspecified glaucoma; H54.61 Unqualified visual loss, right eye, normal vision left eye; I10 Essential (primary) hypertension; I25.10 Atherosclerotic heart disease of native coronary artery without angina pectoris; I44.7 Left bundle-branch block, unspecified; I73.00 Raynaud's syndrome without gangrene; K21.9 Gastro-esophageal reflux disease without esophagitis; Z79.1 Long term (current) use of non-steroidal anti-inflammatories (NSAID); Z79.82 Long term (current) use of aspirin; Z79.899 Other long term (current) drug therapy; Z80.1 Family history of malignant neoplasm of trachea, bronchus and lung; Z82.3 Family history of stroke; Z82.49 Family history of ischemic heart disease and other diseases of the circulatory system; Z83.3 Family history of diabetes mellitus; Z85.048 Personal history of other malignant neoplasm of rectum, rectosigmoid junction, and anus; Z90.710 Acquired absence of both cervix and uterus; Z98.1 Arthrodesis status; Z83.2 Family history of diseases of the blood and blood-forming organs and certain disorders involving the immune mechanism; M46.90 Unspecified inflammatory spondylopathy, site unspecified; Z56.0 Unemployment, unspecified; Z79.52 Long term (current) use of systemic steroids
CPT/HCPCS: 36415; 71046; 80053; 83735; 83880; 84484; 85025; 85379; 85610; 85730; 87070; 87205; 93005; 94640; 94644; 94760; 96365; 96368; 96375; 99285

== ENCOUNTER 2019-04-17 12:56 | Inpatient (IN) | payer OTHER ==
[2019-04-17] MEDS ORDERED: SODIUM CHLORIDE 0.9% 1,000 ML IV STA (13:43)
[2019-04-17] MEDS ORDERED: KETOROLAC 60 MG/2 ML VIAL IVP STA (13:43)
[2019-04-17] MEDS ORDERED: SODIUM CHLORIDE 0.9% 500 ML 500 ML IV ONE (13:50)
--- NOTE | 2019-04-17 13:50 | ED ---
General Adult HPI - General Chief complaint: Weakness Stated complaint: Weak, cold sweats Time Seen by Provider: 04/17/19 13:00 Source: patient, RN notes reviewed Mode of arrival: ambulatory Limitations: no limitations - History of Present Illness Initial comments: This is a 58-year-old female who presents emergency Department complaining of generalized weakness. Patient states on Friday she had [address] Moreno. Patient states she's been trying to eat and drink but she's not taking in as much as she normally does. Patient states that in the shower she felt very weak and didn't think she could stand much longer so she sat down. Patient states she has had some episodes of nausea but has not vomited. Patient denies any diarrhea. Patient states she has some pain in her jaw but it's not that bad. Patient denies any fever chills. Patient denies any shortness of breath or difficulty breathing. Patient denies any cough. Patient denies any chest pain or palpitations. Patient denies any dysuria hematuria urinary freq uency. Patient states she does have a little lower abdominal discomfort but she states she has been constipated his last few days. - Related Data Home Medications Medication Instructions Recorded Confirmed Celecoxib [CeleBREX] 200 mg PO DAILY 12/14/15 04/17/19 Losartan [Cozaar] 50 mg PO DAILY 12/14/15 04/17/19 Omeprazole 20 mg PO DAILY 12/14/15 04/17/19 Rivaroxaban [Xarelto] 20 mg PO DAILY 12/14/15 04/17/19 Timolol 0.5% Ophth Soln [Timoptic 1 drop BOTH EYES BID 12/14/15 04/17/19 0.5% Ophth Soln] Zolpidem [Ambien] 10 mg PO HS 12/14/15 04/17/19 traZODone HCL [Desyrel] 100 mg PO HS PRN 12/14/15 04/17/19 Aspirin [Adult Low Dose Aspirin EC] 81 mg PO DAILY 05/21/17 04/17/19 Atorvastatin [Lipitor] 40 mg PO DAILY 05/21/17 04/17/19 amLODIPine [Norvasc] 5 mg PO QAM 05/21/17 04/17/19 DULoxetine HCL [Cymbalta] 30 mg PO TID 10/05/18 04/17/19 Hydrochlorothiazide [Hydrodiuril] 25 mg PO DAILY 10/05/18 04/17/19 Cyclobenzaprine [Flexeril] 10 mg PO DAILY 03/14/19 04/17/19 Allergies Allergy/AdvReac Type Severity Reaction Status Date / Time No Known Allergies Allergy Verified 04/17/19 13:31 Review of Systems ROS Statement: Those systems with pertinent positive or pertinent negative responses have been documented in the HPI. ROS Other: All systems not noted in ROS Statement are negative. Past Medical History Past Medical History: Coronary Artery Disease (CAD), Cancer, Eye Disorder, GERD/Reflux, Hyperlipidemia, Hypertension, Pulmonary Embolus (PE), Sleep Apnea/CPAP/BIPAP Additional Past Medical History / Comment(s): Pulmonary Embolism, HX 2 clots inferior vena cava, colo/rectal cancer-surgically removed 2008 est, back pain from arthritis, R eye blindness, glaucoma bilaterally; uses CPAP. RAYNAUD'S. History of Any Multi-Drug Resistant Organisms: None Reported Past Surgical History: Bowel Resection, Hysterectomy, Orthopedic Surgery, Tubal Ligation Additional Past Surgical History / Comment(s): 9" removal of bowel cancer, D&C, venous ablation of L leg varicosity, cyst removed from back, colonoscopy, cervical surgery. Justo wrist sx, Neck fusion, RT KNEE MENISCUS. Past Anesthesia/Blood Transfusion Reactions: Postoperative Nausea & Vomiting (PONV) Additional Past Anesthesia/Blood Transfusion Reaction / Comment(s): PONV one time long ago; AWOKE DURING COLONOSCOPIES. Past Psychological History: Anxiety Smoking Status: Current every day smoker Past Alcohol Use History: Occasional Past Drug Use History: None Reported - Past Family History Father Family Medical History: Cancer, Deep Vein Thrombosis (DVT) Additional Family Medical History / Comment(s): Lung cancer. Father of a massive CVA Mother Family Medical History: Diabetes Mellitus, Hyperlipidemia, Hypertension Additional Family Medical History / Comment(s): Mother at age 82 yrs. General Exam - General Exam Comments Initial Comments: GENERAL: Patient is well-developed and well-nourished. Patient is nontoxic and well- hydrated and is in mild distress. ENT: Neck is soft and supple. No significant lymphadenopathy is noted. Oropharynx is clear. Moist mucous membranes. Patient has some granulation tissue where the teeth have been extracted there's no signs of infection or abscess formation. Neck has full range of motion without eliciting any pain. EYES: The sclera were anicteric and conjunctiva were pink and moist. Extraocular movements were intact and pupils were equal round and reactive to light. Eyelids were unremarkable. PULMONARY: Unlabored respirations. Good breath sounds bilaterally. No audible rales rhonchi or wheezing was noted. CARDIOVASCULAR: Patient is tachycardic at about 120 beats a minute ABDOMEN: Patient has mild left lower quadrant tenderness. Patient has no rebound or guarding. SKIN: Skin is clear with no lesions or rashes and otherwise unremarkable. NEUROLOGIC: Patient is alert and oriented x3. Cranial nerves II through XII are grossly intact. Motor and sensory are also intact. Normal speech, volume and content. Symmetrical smile. MUSCULOSKELETAL: Normal extremities with adequate strength and full range of motion. No lower extremity swelling or edema. No calf tenderness. LYMPHATICS: No significant lymphadenopathy is noted PSYCHIATRIC: Normal psychiatric evaluation. Limitations: no limitations Course Vital Signs 04/17/19 04/17/19 04/17/19 12:59 13:33 13:40 Temperature 97.5 F L Pulse Rate 116 H 98 Respiratory 18 18 Rate Blood Pressure 88/64 98/74 98/74 O2 Sat by Pulse 96 Oximetry 04/17/19 04/17/19 14:00 14:20 Temperature Pulse Rate 102 H Respiratory 18 18 Rate Blood Pressure 98/74 105/71 O2 Sat by Pulse 97 Oximetry Medical Decision Making - Medical Decision Making EKG shows sinus tachycardia her 5 bpm MA interval 256 QRS is under 40 QT interval 390 QTC is 5:15. Patient's EKG shows a left bundle branch block which has been seen in previous EKG. After patient received a liter and half fluid and drink a glass of water she still remained orthostatically hypotensive. Patient states even lying in bed she continued to feel extremely weak. Symptoms patient's up she was dizzy but she was also numerically orthostatic I spoke with Dr. Amador he agreed to admit the patient admitted the patient wrote admitting orders - Lab Data Result diagrams: 04/17/19 13:30 04/17/19 13:30 Lab Results 04/17/19 04/17/19 04/17/19 Range/Units 13:30 13:30 13:30 WBC 11.9 H (3.8-10.6) k/uL RBC 5.30 (3.80-5.40) m/uL Hgb 16.4 H (11.4-16.0) gm/dL Hct 48.7 H (34.0-46.0) % MCV 92.0 (80.0-100.0) fL MCH 31.0 (25.0-35.0) pg MCHC 33.7 (31.0-37.0) g/dL RDW 13.2 (11.5-15.5) % Plt Count 369 (150-450) k/uL Neutrophils % 84 % Lymphocytes % 11 % Monocytes % 3 % Eosinophils % 0 % Basophils % 0 % Neutrophils # 10.0 H (1.3-7.7) k/uL Lymphocytes # 1.3 (1.0-4.8) k/uL Monocytes # 0.4 (0-1.0) k/uL Eosinophils # 0.0 (0-0.7) k/uL Basophils # 0.0 (0-0.2) k/uL PT (9.0-12.0) sec INR (<1.2) APTT (22.0-30.0) sec Sodium 135 L (137-145) mmol/L Potassium 4.2 (3.5-5.1) mmol/L Chloride 98 (98-107) mmol/L Carbon Dioxide 23 (22-30) mmol/L Anion Gap 14 mmol/L BUN 30 H (7-17) mg/dL Creatinine 1.15 H (0.52-1.04) mg/dL Est GFR (CKD-EPI)AfAm 60 (>60 ml/min/1.73 sqM) Est GFR (CKD-EPI)NonAf 52 (>60 ml/min/1.73 sqM) Glucose 181 H (74-99) mg/dL Plasma Lactic Acid Niraml 3.3 H* (0.7-2.0) mmol/L Calcium 10.3 H (8.4-10.2) mg/dL Magnesium 2.1 (1.6-2.3) mg/dL Total Bilirubin 0.5 (0.2-1.3) mg/dL AST 25 (14-36) U/L ALT 30 (9-52) U/L Alkaline Phosphatase 119 (38-126) U/L Troponin I (0.000-0.034) ng/mL Total Protein 7.2 (6.3-8.2) g/dL Albumin 4.1 (3.5-5.0) g/dL Urine Color Urine Appearance (Clear) Urine pH (5.0-8.0) Ur Specific [place] (1.001-1.035) Urine Protein (Negative) Urine Glucose (UA) (Negative) Urine Ketones (Negative) Urine Blood (Negative) Urine Nitrite (Negative) Urine Bilirubin (Negative) Urine Urobilinogen (<2.0) mg/dL Ur Leukocyte Esterase (Negative) Urine RBC (0-5) /hpf Urine WBC (0-5) /hpf Ur Squamous Epith Cells (0-4) /hpf Hyaline Casts (0-2) /lpf Urine Mucus (None) /hpf 04/17/19 04/17/19 04/17/19 Range/Units 13:30 13:30 15:25 WBC (3.8-10.6) k/uL RBC (3.80-5.40) m/uL Hgb (11.4-16.0) gm/dL Hct (34.0-46.0) % MCV (80.0-100.0) fL MCH (25.0-35.0) pg MCHC (31.0-37.0) g/dL RDW (11.5-15.5) % Plt Count (150-450) k/uL Neutrophils % % Lymphocytes % % Monocytes % % Eosinophils % % Basophils % % Neutrophils # (1.3-7.7) k/uL Lymphocytes # (1.0-4.8) k/uL Monocytes # (0-1.0) k/uL Eosinophils # (0-0.7) k/uL Basophils # (0-0.2) k/uL PT 10.4 (9.0-12.0) sec INR 1.0 (<1.2) APTT 26.1 (22.0-30.0) sec Sodium (137-145) mmol/L Potassium (3.5-5.1) mmol/L Chloride (98-107) mmol/L Carbon Dioxide (22-30) mmol/L Anion Gap mmol/L BUN (7-17) mg/dL Creatinine (0.52-1.04) mg/dL Est GFR (CKD-EPI)AfAm (>60 ml/min/1.73 sqM) Est GFR (CKD-EPI)NonAf (>60 ml/min/1.73 sqM) Glucose (74-99) mg/dL Plasma Lactic Acid [place] (0.7-2.0) mmol/L Calcium (8.4-10.2) mg/dL Magnesium (1.6-2.3) mg/dL Total Bilirubin (0.2-1.3) mg/dL AST (14-36) U/L ALT (9-52) U/L Alkaline Phosphatase (38-126) U/L Troponin I 0.026 (0.000-0.034) ng/mL Total Protein (6.3-8.2) g/dL Albumin (3.5-5.0) g/dL Urine Color Red Urine Appearance Cloudy H (Clear) Urine pH 5.5 (5.0-8.0) Ur Specific [place] 1.027 (1.001-1.035) Urine Protein 1+ H (Negative) Urine Glucose (UA) Negative (Negative) Urine Ketones Negative (Negative) Urine Blood Small H (Negative) Urine Nitrite Negative (Negative) Urine Bilirubin Negative (Negative) Urine Urobilinogen 3.0 (<2.0) mg/dL Ur Leukocyte Esterase Negative (Negative) Urine RBC 7 H (0-5) /hpf Urine WBC 2 (0-5) /hpf Ur Squamous Epith Cells 6 H (0-4) /hpf Hyaline Casts 196 H (0-2) /lpf Urine Mucus Few H (None) /hpf Disposition Clinical Impression: Orthostatic hypotension Disposition: ADMITTED IP TO THIS [facility] Referrals: Charlie Brown MD [Primary Care Provider] - 1-2 days Time of Disposition: 15:59
[2019-04-17 14:00] LABS: Basophils % (A) 0 %; Eosinophils % (A) 0 %; HCT 48.7 % (34.0-46.0); HGB 16.4 gm/dL (11.4-16.0); Lymphocytes # (A) 1.3 k/uL (1.0-4.8); Lymphocytes % (A) 11 %; MCHC 33.7 g/dL (31.0-37.0); Mean Platelet Volume 6.6; Monocytes # (A) 0.4 k/uL (0-1.0); Monocytes % (A) 3 %; Neutrophils % (A) 84 %; Platelet Count 369 k/uL (150-450); RDW 13.2 % (11.5-15.5); WBC 11.9 k/uL (3.8-10.6)
--- NOTE | 2019-04-17 14:12 | XR ---
EXAMINATION TYPE: XR KUB DATE OF EXAM: 04/17/2019 COMPARISON: NONE HISTORY: Weakness abdominal pain TECHNIQUE: Single view upright FINDINGS: Bowel gas pattern is normal. There is no sign of intestinal obstruction or pneumoperitoneum . Fecal pattern is normal. There are no pathologic calcifications over the kidneys. Lung bases are cl ear. IMPRESSION: Nonacute abdomen.
[2019-04-17 14:13] LABS: Partial Thromboplastin Time 26.1 sec (22.0-30.0); Prothrombin Time 10.4 sec (9.0-12.0)
--- NOTE | 2019-04-17 14:13 | XR ---
EXAMINATION TYPE: XR chest 2V DATE OF EXAM: 04/17/2019 COMPARISON: 03/15/2019 HISTORY: Weakness TECHNIQUE: Frontal and lateral views of the chest are obtained. FINDINGS: Heart is normal. Lungs are clear of infiltrate. There is no pleural effusion. There are no hilar masses. Bony thorax is intact. IMPRESSION: Normal chest. There is clearing of mild pulmonary interstitial infiltrates compared to l ast exam.
[2019-04-17 14:16] LABS: Albumin 4.1 g/dL (3.5-5.0); Calcium 10.3 mg/dL (8.4-10.2); Magnesium 2.1 mg/dL (1.6-2.3); Potassium 4.2 mmol/L (3.5-5.1); Total Bilirubin 0.5 mg/dL (0.2-1.3); Total Protein 7.2 g/dL (6.3-8.2)
[2019-04-17 15:44] LABS: Appearance,Urine Cloudy (Clear); Bilirubin,Urine Negative (Negative); Blood,Urine Small (Negative); Color,Urine Red; Glucose,Urine (UA) Negative (Negative); Hyaline Casts,Urine 196 /lpf (0-2); Ketones,Urine Negative (Negative); Leukocyte Esterase,Urine Negative (Negative); Mucus,Urine Few /hpf; Nitrite,Urine Negative (Negative); PH, Urine 5.5 (5.0-8.0); Protein,Urine 1+ (Negative); RBC,Urine 7 /hpf (0-5); Specific Gravity,Urine 1.027 (1.001-1.035); Squamous Epithelial Cell,Urine 6 /hpf (0-4); WBC,Urine 2 /hpf (0-5)
[2019-04-17] MEDS ORDERED: SODIUM CHLORIDE 0.9% 1,000 ML IV ONE (16:00)
[2019-04-17] MEDS ORDERED: CYCLOBENZAPRINE 10 MG TAB PO PRN (20:30)
[2019-04-17] MEDS: DULoxetine HCL 30 MG CAPSULE.DR PO SCH (21:05)
[2019-04-17] MEDS: ZOLPIDEM 10 MG TAB PO PRN (21:05)
[2019-04-17] MEDS: traZODone HCL 100 MG TAB PO PRN (21:05)
[2019-04-17] MEDS: LATANOPROST 0.005% OPHTH DROPS 2.5 ML BTL BOTH EYES SCH (21:59)
[2019-04-18 07:02] LABS: Basophils % (A) 0 %; Eosinophils # (A) 0.1 k/uL (0-0.7); Eosinophils % (A) 2 %; HCT 35.9 % (34.0-46.0); Lymphocytes # (A) 2.2 k/uL (1.0-4.8); Lymphocytes % (A) 32 %; MCH 31.1 pg (25.0-35.0); MCHC 33.6 g/dL (31.0-37.0); MCV 92.7 fL (80.0-100.0); Mean Platelet Volume 6.4; Monocytes # (A) 0.3 k/uL (0-1.0); Monocytes % (A) 5 %; Neutrophils # (A) 3.9 k/uL (1.3-7.7); Neutrophils % (A) 59 %; Platelet Count 295 k/uL (150-450); RBC 3.87 m/uL (3.80-5.40); RDW 13.1 % (11.5-15.5); WBC 6.7 k/uL (3.8-10.6)
[2019-04-18 07:03] LABS: HGB 12.1 gm/dL (11.4-16.0)
[2019-04-18 07:09] LABS: ALT 28 U/L (9-52); AST 19 U/L (14-36); African American GFR (CKD) >90 (>60 ml/min/1.73 sqM); Albumin 2.8 g/dL (3.5-5.0); Alkaline Phosphatase 89 U/L (38-126); Anion Gap 6 mmol/L; Blood Urea Nitrogen 20 mg/dL (7-17); Calcium 8.5 mg/dL (8.4-10.2); Carbon Dioxide 23 mmol/L (22-30); Chloride 108 mmol/L (98-107); Glucose 76 mg/dL (74-99); Potassium 3.5 mmol/L (3.5-5.1); Sodium 137 mmol/L (137-145); Total Bilirubin 0.7 mg/dL (0.2-1.3); Total Protein 5.2 g/dL (6.3-8.2)
[2019-04-18] MEDS: DULoxetine HCL 30 MG CAPSULE.DR PO SCH ×3 (10:14→22:25)
[2019-04-18] MEDS: LOSARTAN 50 MG TAB PO SCH (10:14)
[2019-04-18] MEDS: PANTOPRAZOLE 40 MG TABLET PO SCH (10:14)
[2019-04-18] MEDS: HYDROCHLOROTHIAZIDE 25 MG TAB PO SCH (10:14)
[2019-04-18] MEDS: amLODIPine 5 MG TAB PO SCH (10:14)
[2019-04-18] MEDS: ATORVASTATIN 40 MG TAB PO SCH (10:14)
[2019-04-18] MEDS: MELOXICAM 7.5 MG TAB PO SCH (10:14)
[2019-04-18] MEDS: TIMOLOL 0.5% OPHTH DROPS 5 ML BTL BOTH EYES SCH (10:15)
[2019-04-18] MEDS: ISOSORBIDE MONONITRATE ER 30 MG TAB.ER.24H PO SCH (10:15)
[2019-04-18] MEDS: ASPIRIN 81 MG PO SCH (10:21)
[2019-04-18] MEDS: ACETAMINOPHEN TAB 325 MG TAB PO PRN ×2 (13:07→22:25)
[2019-04-18] MEDS ORDERED: LACTATED RINGERS 1,000 ML IV ONE (14:00)
--- NOTE | 2019-04-18 14:27 | P.HPIM ---
History of Present Illness H&P Date: 04/18/19 Chief Complaint: Weak and tired Chief Complaint: Short of breath Interval history: This is a pleasant 60-year-old patient of Dr. Charlie Brown. 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 Chronic stable medical conditions include GERD, hyperlipidemia, hypertension, pulmonary embolism on Xarelto,(s) sleep apnea, colorectal cancer surgically removed in 2008, back pain from arthritis, blindness in the right eye, patient does use a CPAP. Raynaud's disease. Patient was in the hospital 1 month ago with bilateral pneumonitis and COPD exacerbation. 3 days ago patient had [address] crawford. Patient has been taking Tylenol 3 at home. Has been sleeping quite a bit. Presented feeling weak tired hardly able to stand up. Rundown. No fever no chills. [place] to be severely dehydrated the ER. Starting IV fluids. Feeling better this m orning. No more dizziness or lightheadedness. Oral intake is improved. No fever no chills. Denies any urinary or pulmonary symptoms. Review of systems: GEN.: Weak tired EYES: None HEENT: Some pain and done, the teeth extracted NECK: None RESPIRATORY: None CARDIOVASCULAR: None GASTROINTESTINAL: None GENITOURINARY: None MUSCULOSKELETAL: Back pain LYMPHATICS: None HEMATOLOGICAL: None PSYCHIATRY: None NEUROLOGICAL: None Social history: daughter lives with her. Smoking half a pack a day for over 42 years. Stopped 1 month ago. Not employed. occasional alcohol. Physical examination: VITAL SIGNS: [97.5, 116, 18, 88/64, and 96% room air-upon presentation GENERAL: BMI 21.6, laying in bed, awake EYES: Pupils equal. Conjunctiva normal. HEENT: External appearance of nose and ears normal, oral cavity grossly normal. NECK: JVD not raised; masses not palpable. HEART: First and second heart sounds are normal; no edema. LUNGS: Respiratory rate normal, diminished breath sounds. ABDOMEN: Soft, nontender, liver spleen not palpable, no masses palpable. PSYCH: Alert and oriented x3; mood and affect normal. NEUROLOGICAL: Cranial nerves grossly intact; no facial asymmetry, power and sensation grossly intact. LYMPHATICS: No lymph nodes palpable in the axilla and neck INVESTIGATIONS, reviewed in the clinical context: White count 11.9 hemoglobin 16.4 platelets 369 potassium 4.2 BUN 30 creatinine 1.15 Plasma lactic acid 3.3 Potassium 10.3 Assessment: -Acute severe dehydration in a patient from decreased oral intake -Possible acute kidney injury, prerenal from dehydration -Hypercalcemia due to on him contraction -Lactic acidosis type II from volume contraction dehydration -COPD in an ex-smoker -GERD -Hyperlipidemia -Essential hypertension -Chronic pulmonary embolism on Xarelto -Obstructive sleep apnea uses CPAP -Left bundle-branch block Plan: Patient being IV hydrated. Did well overnight. Doing much better this morning. Oral intake is improved. Patient told to avoid Tylenol 3. Making her sleepy. That is affecting oral intake. Repeat blood pressure. Encouraged to be out of bed. Past Medical History Past Medical History: Coronary Artery Disease (CAD), Cancer, Eye Disorder, GERD/Reflux, Hyperlipidemia, Hypertension, Pulmonary Embolus (PE), Sleep Apnea/CPAP/BIPAP Additional Past Medical History / Comment(s): Pulmonary Embolism, HX 2 clots inferior vena cava, colo/rectal cancer-surgically removed 2008 est, back pain from arthritis, R eye blindness, glaucoma bilaterally; uses CPAP. RAYNAUD'S. History of Any Multi-Drug Resistant Organisms: None Reported Past Surgical History: Bowel Resection, Hysterectomy, Orthopedic Surgery, Tubal Ligation Additional Past Surgical History / Comment(s): 9" removal of bowel cancer, D&C, venous ablation of L leg varicosity, cyst removed from back, colonoscopy, cervical surgery. Justo wrist sx, Neck fusion, RT KNEE MENISCUS. Past Anesthesia/Blood Transfusion Reactions: Postoperative Nausea & Vomiting (PONV) Additional Past Anesthesia/Blood Transfusion Reaction / Comment(s): PONV one time long ago; AWOKE DURING COLONOSCOPIES. Past Psychological History: Anxiety Additional Psychological History / Comment(s): Pt resides with daughter. She is independent. Smoking Status: Former smoker Past Alcohol Use History: Occasional Additional Past Alcohol Use History / Comment(s): quit smoking one month ago Past Drug Use History: None Reported - Past Family History Father Family Medical History: Cancer, Deep Vein Thrombosis (DVT) Additional Family Medical History / Comment(s): Lung cancer. Father of a massive CVA Mother Family Medical History: Diabetes Mellitus, Hyperlipidemia, Hypertension Additional Family Medical History / Comment(s): Mother at age 82 yrs. Medications and Allergies Home Medications Medication Instructions Recorded Confirmed Type Celecoxib [CeleBREX] 200 mg PO DAILY 12/14/15 04/17/19 History Losartan [Cozaar] 50 mg PO DAILY 12/14/15 04/17/19 History Omeprazole 20 mg PO DAILY 12/14/15 04/17/19 History Rivaroxaban [Xarelto] 20 mg PO DAILY 12/14/15 04/17/19 History Timolol 0.5% Ophth Soln [Timoptic 1 drop BOTH EYES DAILY 12/14/15 04/17/19 History 0.5% Ophth Soln] Zolpidem [Ambien] 10 mg PO HS 12/14/15 04/17/19 History traZODone HCL [Desyrel] 100 mg PO HS PRN 12/14/15 04/17/19 History Aspirin [Adult Low Dose Aspirin EC] 81 mg PO DAILY 05/21/17 04/17/19 History Atorvastatin [Lipitor] 40 mg PO DAILY 05/21/17 04/17/19 History amLODIPine [Norvasc] 5 mg PO QAM 05/21/17 04/17/19 History DULoxetine HCL [Cymbalta] 30 mg PO TID 10/05/18 04/17/19 History Hydrochlorothiazide [Hydrodiuril] 25 mg PO DAILY 10/05/18 04/17/19 History Cyclobenzaprine [Flexeril] 10 mg PO Q8H PRN 03/14/19 04/17/19 History Ipratropium [place] [Atrovent Hfa] 2 puff INHALATION RT-QID 04/17/19 04/17/19 History Isosorbide Mononitrate ER [Imdur] 30 mg PO DAILY 04/17/19 04/17/19 History Latanoprost [Xalatan 0.005%] 1 drop BOTH EYES HS 04/17/19 04/17/19 History Allergies Allergy/AdvReac Type Severity Reaction Status Date / Time No Known Allergies Allergy Verified 04/17/19 13:31 Physical Exam Vitals: Vital Signs Temp Pulse Pulse Resp BP BP Pulse Ox 04/18/19 03:15 98.4 F 97 16 107/59 94 L 04/17/19 23:30 98.2 F 85 16 92/52 96 04/17/19 20:00 98.3 F 97 16 91/52 99 04/17/19 19:55 98.0 F 85 16 96/52 98 04/17/19 19:00 81 18 92/62 98 04/17/19 17:43 88 16 93/59 98 04/17/19 16:39 87 16 95/55 98 04/17/19 15:00 89 18 108/72 97 04/17/19 14:20 102 H 18 105/71 97 04/17/19 14:00 18 98/74 04/17/19 13:40 98/74 04/17/19 13:33 98 18 98/74 04/17/19 12:59 97.5 F L 116 H 18 88/64 96 Results CBC & Chem 7: 04/18/19 05:48 04/18/19 05:48 Labs: Abnormal Lab Results - Last 24 Hours (Table) 04/17/19 04/17/19 04/17/19 Range/Units 13:30 13:30 13:30 WBC 11.9 H (3.8-10.6) k/uL Hgb 16.4 H (11.4-16.0) gm/dL Hct 48.7 H (34.0-46.0) % Neutrophils # 10.0 H (1.3-7.7) k/uL Sodium 135 L (137-145) mmol/L Chloride (98-107) mmol/L BUN 30 H (7-17) mg/dL Creatinine 1.15 H (0.52-1.04) mg/dL Glucose 181 H (74-99) mg/dL Plasma Lactic Acid Nirmal 3.3 H* (0.7-2.0) mmol/L Calcium 10.3 H (8.4-10.2) mg/dL Total Protein (6.3-8.2) g/dL Albumin (3.5-5.0) g/dL Urine Appearance (Clear) Urine Protein (Negative) Urine Blood (Negative) Urine RBC (0-5) /hpf Ur Squamous Epith Cells (0-4) /hpf Hyaline Casts (0-2) /lpf Urine Mucus (None) /hpf 04/17/19 04/18/19 Range/Units 15:25 05:48 WBC (3.8-10.6) k/uL Hgb (11.4-16.0) gm/dL Hct (34.0-46.0) % Neutrophils # (1.3-7.7) k/uL Sodium (137-145) mmol/L Chloride 108 H (98-107) mmol/L BUN 20 H (7-17) mg/dL Creatinine (0.52-1.04) mg/dL Glucose (74-99) mg/dL Plasma Lactic Acid Nirmal (0.7-2.0) mmol/L Calcium (8.4-10.2) mg/dL Total Protein 5.2 L (6.3-8.2) g/dL Albumin 2.8 L (3.5-5.0) g/dL Urine Appearance Cloudy H (Clear) Urine Protein 1+ H (Negative) Urine Blood Small H (Negative) Urine RBC 7 H (0-5) /hpf Ur Squamous Epith Cells 6 H (0-4) /hpf Hyaline Casts 196 H (0-2) /lpf Urine Mucus Few H (None) /hpf Thrombosis Risk Factor Assmnt - Choose All That Apply Any of the Below Risk Factors Present?: Yes Each Factor Represents 1 point: Abnormal pulmonary function (COPD), Age 41-60 years Each Risk Factor Represents 3 Points: History of DVT/PE Thrombosis Risk Factor Assessment Total Risk Factor Score: 5 Thrombosis Risk Factor Assessment Level: High Risk
[2019-04-18] MEDS ORDERED: RIVAROXABAN 20 MG TAB PO SCH (17:30)
[2019-04-18] MEDS: IPRATROPIUM 0.5 MG/2.5 ML NEBU INHALATION SCH (20:23)
[2019-04-18] MEDS: LATANOPROST 0.005% OPHTH DROPS 2.5 ML BTL BOTH EYES SCH (21:55)
[2019-04-18] MEDS: traZODone HCL 100 MG TAB PO PRN (22:25)
[2019-04-18] MEDS: ZOLPIDEM 10 MG TAB PO PRN (22:25)
[2019-04-19] MEDS: LACTATED RINGERS 1,000 ML IV SCH ×2 (00:26→08:49)
[2019-04-19 01:44] VITALS: RESP 18
[2019-04-19] MEDS: ACETAMINOPHEN TAB 325 MG TAB PO PRN ×2 (04:16→11:25)
[2019-04-19] MEDS: IPRATROPIUM 0.5 MG/2.5 ML NEBU INHALATION SCH ×5 (07:31→15:21)
[2019-04-19] MEDS: ISOSORBIDE MONONITRATE ER 30 MG TAB.ER.24H PO SCH (08:51)
[2019-04-19] MEDS: DULoxetine HCL 30 MG CAPSULE.DR PO SCH (08:51)
[2019-04-19] MEDS: amLODIPine 5 MG TAB PO SCH (08:51)
[2019-04-19] MEDS: HYDROCHLOROTHIAZIDE 25 MG TAB PO SCH (08:51)
[2019-04-19] MEDS: MELOXICAM 7.5 MG TAB PO SCH (08:51)
[2019-04-19] MEDS: ASPIRIN 81 MG PO SCH (08:51)
[2019-04-19] MEDS: LOSARTAN 50 MG TAB PO SCH (08:51)
[2019-04-19] MEDS: PANTOPRAZOLE 40 MG TABLET PO SCH (08:51)
[2019-04-19] MEDS: ATORVASTATIN 40 MG TAB PO SCH (08:51)
[2019-04-19] MEDS: TIMOLOL 0.5% OPHTH DROPS 5 ML BTL BOTH EYES SCH (08:53)
[2019-04-19 11:10] VITALS: BP 121/70; PULSE 105; TEMP 97.7
[2019-04-19] MEDS ORDERED: RX INFO: IV CONTRAST WAS GIVEN 1 EACH MISC MISCELLANE PRN (11:14)
--- NOTE | 2019-04-19 15:24 | CT ---
EXAMINATION TYPE: CT angio chest DATE OF EXAM: 04/19/2019 COMPARISON: 06/30/2014 HISTORY: 58-year-old female with chest pain and possible PE TECHNIQUE: Contiguous axial scanning of the chest performed with IV Contrast, patient injected with 1 00 mL of Isovue 370. Coronal/sagittal MIP reconstructions performed. CT DLP: 282.9 mGycm Automated exposure control for dose reduction was used. FINDINGS: Heart normal size without pericardial effusion. No flattening of the interventricular septum or reflu x of contrast into the hepatic veins. Scattered coronary vessel calcifications are present. Aorta normal caliber with conventional vessel branching anatomy. Large left axillary lymph node measures 4.4 x 2.8 cm. Otherwise, no additional thoracic lymphadenopat hy by CT size criteria. Suboptimal opacification of the pulmonary artery system. No large central definite lobar pulmonary em bolus. Assessment of many of the segmental and subsegmental branches are nondiagnostic on this exam d ue to the degree of opacification as well as breathing motion. Some septal lines in the lower lungs. Biapical pleural parenchymal scarring. Trace pleural effusions and mild diffuse bronchial wall thickening. Dependent atelectasis. No consolidation. Hypodense lesion posterior right hepatic dome shows patchy peripheral enhancement measuring 2.1 cm. Bones: Moderate endplate spondylosis anteriorly in the mid thoracic spine. IMPRESSION: 1. LIMITED ASSESSMENT DUE TO SUBOPTIMAL CONTRAST BOLUS AND MILD BREATHING MOTION. NO LARGE CENTRAL OR LOBAR PULMONARY EMBOLUS. ASSESSMENT OF MANY OF THE SEGMENTAL AND MORE DISTAL ARTERIAL BRANCHES IS LI MITED TO NONDIAGNOSTIC AND EMBOLI IN THESE LOCATIONS CANNOT BE ADEQUATELY EXCLUDED ON THE BASIS OF TH IS EXAM. 2. LARGE LEFT AXILLARY LYMPH NODE MEASURING 4.4 X 2.8 CM. FURTHER EVALUATION AND WORKUP IS WARRANTED TO ASSESS FOR METASTATIC DISEASE. 3. TRACE EFFUSIONS WITH SEPTAL LINES AND CENTRAL INTERSTITIAL THICKENING. CORRELATE FOR FLUID OVERLOA D STATE WITH PULMONARY VASCULAR CONGESTION. 4. A 2.1 CM HYPODENSE LESION IN THE RIGHT HEPATIC DOME SHOWS PATCHY PERIPHERAL ENHANCEMENT. THIS IS N ONSPECIFIC BUT MAY REPRESENT A BENIGN HEMANGIOMA. RECOMMEND LIVER ULTRASOUND. IF SEEN BY ULTRASOUND, IT CAN BE FOLLOWED UP WITH THAT MODALITY.
--- NOTE | 2019-04-19 22:43 | P.DS ---
Providers Date of admission: 04/19/19 09:46 Expected date of discharge: 04/19/19 Attending physician: Mason Amador Primary care physician: Charlie Brown [facility] Course: Chief Complaint: Short of breath Interval history: This is a pleasant 60-year-old patient of Dr. Charlie Brown. 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 Chronic stable medical conditions include GERD, hyperlipidemia, hypertension, pulmonary embolism on Xarelto,(s) sleep apnea, colorectal cancer surgically removed in 2008, back pain from arthritis, blindness in the right eye, patient does use a CPAP. Raynaud's disease. Patient was in the hospital 1 month ago with bilateral pneumonitis and COPD exacerbation. 3 days ago patient had [address] crawford. Patient has been taking Tylenol 3 at home. Has been sleeping quite a bit. Presented feeling weak tired hardly able to stand up. Rundown. No fever no chills. [place] to be severely dehydrated the ER. Admitted with acute renal failure, prerenal. Responded well to IV fluids. PE was ruled out. Discussion and discharge planning more than 35 minutes Physical examination: VITAL SIGNS: 97.7, 105, 18, 121/70, 97% percent room air GENERAL: Sitting up, comfortable EYES: Pupils equal. Conjunctiva normal. HEENT: External appearance of nose and ears normal, oral cavity grossly normal. NECK: JVD not raised; masses not palpable. HEART: First and second heart sounds are normal; no edema. LUNGS: Respiratory rate normal, diminished breath sounds. ABDOMEN: Soft, nontender, liver spleen not palpable, no masses palpable. PSYCH: Alert and oriented x3; mood and affect normal. INVESTIGATIONS, reviewed in the clinical context: White count 6.7 creatinine 0.69 Previous testing White count 11.9 hemoglobin 16.4 platelets 369 potassium 4.2 BUN 30 creatinine 1.15 Plasma lactic acid 3.3 Calcium 10.3 Computed tomography scan of the chest-shows a large left axillary lymph node Assessment: -Possible acute kidney injury, prerenal from dehydration, improved -Hypercalcemia due to on him contraction -Lactic acidosis type II from volume contraction dehydration -COPD in an ex-smoker -GERD -Hyperlipidemia -Essential hypertension -Chronic pulmonary embolism on Xarelto -Obstructive sleep apnea uses CPAP -Left bundle-branch block Plan: Patient is to follow-up with her java xml developer. Instructions were given to nurse Borges discharge planning to make an appointment for the same. Cardiac care was discussed with the patient in detail. Questions were answered. Patient Condition at Discharge: Stable Plan - Discharge Summary Discharge Rx Participant: Yes New Discharge Prescriptions: Continue traZODone HCL [Desyrel] 100 mg PO HS PRN PRN Reason: Insomnia Zolpidem [Ambien] 10 mg PO HS Timolol 0.5% Ophth Soln [Timoptic 0.5% Ophth Soln] 1 drop BOTH EYES DAILY Rivaroxaban [Xarelto] 20 mg PO DAILY Omeprazole 20 mg PO DAILY Celecoxib [CeleBREX] 200 mg PO DAILY amLODIPine [Norvasc] 5 mg PO QAM Atorvastatin [Lipitor] 40 mg PO DAILY Aspirin [Adult Low Dose Aspirin EC] 81 mg PO DAILY DULoxetine HCL [Cymbalta] 30 mg PO TID Cyclobenzaprine [Flexeril] 10 mg PO Q8H PRN PRN Reason: Muscle Spasm Latanoprost [Xalatan 0.005%] 1 drop BOTH EYES HS Isosorbide Mononitrate ER [Imdur] 30 mg PO DAILY Ipratropium [place] [Atrovent Hfa] 2 puff INHALATION RT-QID Discontinued Losartan [Cozaar] 50 mg PO DAILY Hydrochlorothiazide [Hydrodiuril] 25 mg PO DAILY Discharge Medication List Celecoxib [CeleBREX] 200 mg PO DAILY 12/14/15 [History] Omeprazole 20 mg PO DAILY 12/14/15 [History] Rivaroxaban [Xarelto] 20 mg PO DAILY 12/14/15 [History] Timolol 0.5% Ophth Soln [Timoptic 0.5% Ophth Soln] 1 drop BOTH EYES DAILY 12/14/15 [History] Zolpidem [Ambien] 10 mg PO HS 12/14/15 [History] traZODone HCL [Desyrel] 100 mg PO HS PRN 12/14/15 [History] Aspirin [Adult Low Dose Aspirin EC] 81 mg PO DAILY 05/21/17 [History] Atorvastatin [Lipitor] 40 mg PO DAILY 05/21/17 [History] amLODIPine [Norvasc] 5 mg PO QAM 05/21/17 [History] DULoxetine HCL [Cymbalta] 30 mg PO TID 10/05/18 [History] Cyclobenzaprine [Flexeril] 10 mg PO Q8H PRN 03/14/19 [History] Ipratropium [place] [Atrovent Hfa] 2 puff INHALATION RT-QID 04/17/19 [History] Isosorbide Mononitrate ER [Imdur] 30 mg PO DAILY 04/17/19 [History] Latanoprost [Xalatan 0.005%] 1 drop BOTH EYES HS 04/17/19 [History] Follow up Appointment(s)/Referral(s): Charlie Brown MD [Primary Care Provider] - 04/26/19 10:30 am (Friday) Danny Alejandre MD [STAFF PHYSICIAN] - 1 Week (Office is closed. Please call to schedule appointment) Discharge Disposition: HOME SELF-CARE
== END 2019-04-19 16:45 | disposition home or self-care (01) | DRG 683 ==
LOC: EC 12:56 → 3SCARD 16:00 → OBSVTOIN 04-19 09:46
PROVIDERS: ADMIT Hospitalist; ATTEND Hospitalist
DX: N17.9 Acute kidney failure, unspecified (principal); E87.2 Acidosis; I27.82 Chronic pulmonary embolism; E78.5 Hyperlipidemia, unspecified; E83.52 Hypercalcemia; E86.0 Dehydration; F17.210 Nicotine dependence, cigarettes, uncomplicated; F41.9 Anxiety disorder, unspecified; G47.33 Obstructive sleep apnea (adult) (pediatric); H54.61 Unqualified visual loss, right eye, normal vision left eye; I10 Essential (primary) hypertension; I25.10 Atherosclerotic heart disease of native coronary artery without angina pectoris; I44.7 Left bundle-branch block, unspecified; I73.00 Raynaud's syndrome without gangrene; J44.9 Chronic obstructive pulmonary disease, unspecified; K21.9 Gastro-esophageal reflux disease without esophagitis; Z79.01 Long term (current) use of anticoagulants; Z79.1 Long term (current) use of non-steroidal anti-inflammatories (NSAID); Z79.82 Long term (current) use of aspirin; Z79.899 Other long term (current) drug therapy; Z80.1 Family history of malignant neoplasm of trachea, bronchus and lung; Z82.3 Family history of stroke; Z82.49 Family history of ischemic heart disease and other diseases of the circulatory system; Z83.3 Family history of diabetes mellitus; Z85.048 Personal history of other malignant neoplasm of rectum, rectosigmoid junction, and anus; Z90.710 Acquired absence of both cervix and uterus; Z98.1 Arthrodesis status; Z99.89 Dependence on other enabling machines and devices
CPT/HCPCS: 36415; 71046; 71275; 74018; 80053; 81001; 83605; 83735; 84484; 85025; 85610; 85730; 93005; 96361; 96374; 99285

== ENCOUNTER 2019-06-17 08:38 | Day surgery (SDC) | payer OTHER ==
[2019-06-17] MEDS ORDERED: ALPRAZolam 0.5 MG TAB PO STA (09:01)
[2019-06-17 09:20] VITALS: RESP 18; TEMP 97.8
--- NOTE | 2019-06-17 10:03 | US ---
ULTRASOUND GUIDED CORE BIOPSY LEFT AXILLA MASS: CLINICAL HISTORY: Left axilla mass FINDINGS: The procedure was explained to the patient. The risks, complications, benefits and alternatives were discussed and any questions were answered. Informed consent was obtained. Patient was placed supin e on the ultrasound table and prepped and draped in the usual sterile fashion. Utilizing a 18-gauge core biopsy needle, four passes were made into the left axilla mass. Patient was stable throughout the procedure. Pathology is pending. All elements of maximal barrier technique were utilized. IMPRESSION: 1. Successful ultrasound guided core biopsy left axilla mass.
[2019-06-17 10:05] VITALS: BP 96/62; PULSE 82
== END 2019-06-17 10:05 | disposition home or self-care (01) ==
LOC: RADPROMAIN 08:38
PROVIDERS: ATTEND Family Medicine
DX: R22.2 Localized swelling, mass and lump, trunk (principal)
CPT/HCPCS: 38505; 76942; 88305

== ENCOUNTER 2020-03-15 23:37 | Inpatient (IN) | payer MEDICARE, OTHER ==
[2020-03-15] MEDS ORDERED: predniSONE 20 MG TAB PO STA (23:57)
[2020-03-15] MEDS ORDERED: IPRATROPIUM-ALBUTEROL 3 ML NEB INHALATION STA (23:57)
--- NOTE | 2020-03-16 00:02 | ED ---
SOB HPI - General Chief Complaint: Shortness of Breath Stated Complaint: NIKKO Time Seen by Provider: 03/15/20 23:47 Source: patient Mode of arrival: ambulatory Limitations: no limitations - History of Present Illness Initial Comments: This patient is 59-year-old woman who presents to be evaluated for shortness of breath and chest tightness. She states that the symptoms initially started with chest congestion and some coughing going on starting about 3 weeks ago. She states that it felt similar to onset of pneumonia she previously had. She saw her physician and was given a course of antibiotics, she states she took a ten- day course but the symptoms did not really improve much. She continues to have the shortness of breath and cough as well as some diffuse chest tightness. MD Complaint: shortness of breath Onset/Timin -: week(s) Severity: mild Quality: other (Diagnosis) Consistency: constant Improves With: nothing Worsens With: nothing Associated Symptoms: cough Treatments Prior to Arrival: other (Antibiotic) - Related Data Home Oxygen Therapy: No Home Medications Medication Instructions Recorded Confirmed Celecoxib [CeleBREX] 200 mg PO DAILY 12/14/15 06/17/19 Omeprazole 20 mg PO DAILY 12/14/15 06/17/19 Rivaroxaban [Xarelto] 20 mg PO DAILY 12/14/15 06/08/19 Timolol 0.5% Ophth Soln [Timoptic 1 drop BOTH EYES DAILY 12/14/15 06/17/19 0.5% Ophth Soln] Zolpidem [Ambien] 10 mg PO HS 12/14/15 06/17/19 traZODone HCL [Desyrel] 100 mg PO HS PRN 12/14/15 06/17/19 Aspirin [Adult Low Dose Aspirin EC] 81 mg PO DAILY 05/21/17 06/17/19 Atorvastatin [Lipitor] 40 mg PO DAILY 05/21/17 06/17/19 amLODIPine [Norvasc] 5 mg PO QAM 05/21/17 06/17/19 DULoxetine HCL [Cymbalta] 30 mg PO TID 10/05/18 06/17/19 Cyclobenzaprine [Flexeril] 10 mg PO Q8H PRN 03/14/19 06/17/19 Ipratropium [place] [Atrovent Hfa] 2 puff INHALATION RT-QID 04/17/19 06/17/19 Isosorbide Mononitrate ER [Imdur] 30 mg PO DAILY 04/17/19 06/17/19 Latanoprost [Xalatan 0.005%] 1 drop BOTH EYES HS 04/17/19 06/17/19 Allergies Allergy/AdvReac Type Severity Reaction Status Date / Time No Known Allergies Allergy Verified 03/15/20 23:42 Review of Systems ROS Statement: Those systems with pertinent positive or pertinent negative responses have been documented in the HPI. ROS Other: All systems not noted in ROS Statement are negative. Constitutional: Denies: fever, chills Respiratory: Reports: as per HPI, cough, dyspnea. Denies: hemoptysis Cardiovascular: Reports: chest pain. Denies: palpitations, orthopnea, edema, syncope Gastrointestinal: Denies: abdominal pain, nausea, vomiting Genitourinary: Denies: dysuria, hematuria Musculoskeletal: Denies: back pain Skin: Denies: rash Neurological: Denies: headache, weakness Past Medical History Past Medical History: Coronary Artery Disease (CAD), Cancer, Eye Disorder, GERD/Reflux, Hyperlipidemia, Hypertension, Pneumonia, Pulmonary Embolus (PE), Sleep Apnea/CPAP/BIPAP Additional Past Medical History / Comment(s): Pulmonary Embolism, HX 2 clots inferior vena cava, colo/rectal cancer-surgically removed 2009 est, back pain from arthritis, R eye blindness, glaucoma bilaterally; uses CPAP. RAYNAUD'S. History of Any Multi-Drug Resistant Organisms: None Reported Past Surgical History: Bowel Resection, Hysterectomy, Orthopedic Surgery, Tubal Ligation Additional Past Surgical History / Comment(s): 9" removal of bowel cancer, D&C, venous ablation of L leg varicosity, cyst removed from back, colonoscopy, cervical surgery. Justo wrist sx, Neck fusion, RT KNEE MENISCUS. dental extraction Past Anesthesia/Blood Transfusion Reactions: Postoperative Nausea & Vomiting (PONV) Additional Past Anesthesia/Blood Transfusion Reaction / Comment(s): PONV one time long ago; AWOKE DURING COLONOSCOPIES. Past Psychological History: Anxiety Smoking Status: Current every day smoker Past Alcohol Use History: Rare Past Drug Use History: None Reported - Past Family History Father Family Medical History: Cancer, Deep Vein Thrombosis (DVT) Additional Family Medical History / Comment(s): Lung cancer. Father of a massive CVA Mother Family Medical History: Diabetes Mellitus, Hyperlipidemia, Hypertension Additional Family Medical History / Comment(s): Mother at age 82 yrs. General Exam Limitations: no limitations General appearance: alert, in no apparent distress Head exam: Present: atraumatic, normocephalic Eye exam: Present: normal appearance. Absent: scleral icterus, conjunctival injection Neck exam: Present: normal inspection Respiratory exam: Present: wheezes. Absent: respiratory distress, rales, rhonchi, stridor, accessory muscle use, decreased breath sounds, prolonged expiratory Cardiovascular Exam: Present: normal rhythm, tachycardia, normal heart sounds. Absent: systolic murmur, diastolic murmur, rubs, gallop GI/Abdominal exam: Present: soft. Absent: distended, tenderness, guarding, rebound, rigid, mass Extremities exam: Present: normal inspection, normal capillary refill. Absent: pedal edema, calf tenderness Back exam: Present: normal inspection. Absent: CVA tenderness (R), CVA tenderness (L) Neurological exam: Present: alert Skin exam: Present: warm, dry, intact, normal color. Absent: rash Course Vital Signs 03/15/20 03/16/20 03/16/20 23:38 00:01 00:08 Temperature 97.8 F Pulse Rate 105 H 91 96 Pulse Rate [ Switchboard Operator Assistant ] Respiratory 18 Rate Blood Pressure 115/76 Blood Pressure [Right Arm] O2 Sat by Pulse 93 L Oximetry 03/16/20 03/16/20 03/16/20 00:58 01:10 03:00 Temperature Pulse Rate 89 81 Pulse Rate [ Switchboard Operator Assistant ] Respiratory 20 19 Rate Blood Pressure 116/85 109/72 Blood Pressure [Right Arm] O2 Sat by Pulse 87 L 94 L 96 Oximetry 03/16/20 03/16/20 03:30 04:29 Temperature 97.6 F Pulse Rate 91 Pulse Rate [ 85 Switchboard Operator Assistant ] Respiratory 19 15 Rate Blood Pressure 114/71 Blood Pressure 109/67 [Right Arm] O2 Sat by Pulse 96 99 Oximetry Medical Decision Making - Lab Data Result diagrams: 03/16/20 00:03 03/16/20 00:03 Lab Results 03/16/20 03/16/20 03/16/20 Range/Units 00:03 00:03 00:03 WBC 11.9 H (3.8-10.6) k/uL RBC 4.78 (3.80-5.40) m/uL Hgb 14.2 (11.4-16.0) gm/dL Hct 44.0 (34.0-46.0) % MCV 92.0 (80.0-100.0) fL MCH 29.6 (25.0-35.0) pg MCHC 32.2 (31.0-37.0) g/dL RDW 14.0 (11.5-15.5) % Plt Count 267 (150-450) k/uL Neutrophils % 62 % Lymphocytes % 31 % Monocytes % 3 % Eosinophils % 2 % Basophils % 1 % Neutrophils # 7.3 (1.3-7.7) k/uL Lymphocytes # 3.7 (1.0-4.8) k/uL Monocytes # 0.4 (0-1.0) k/uL Eosinophils # 0.3 (0-0.7) k/uL Basophils # 0.1 (0-0.2) k/uL PT (9.0-12.0) sec INR (<1.2) APTT (22.0-30.0) sec D-Dimer (<0.60) mg/L FEU Sodium 131 L (137-145) mmol/L Potassium 4.2 (3.5-5.1) mmol/L Chloride 98 (98-107) mmol/L Carbon Dioxide 21 L (22-30) mmol/L Anion Gap 12 mmol/L BUN 14 (7-17) mg/dL Creatinine 0.81 (0.52-1.04) mg/dL Est GFR (CKD-EPI)AfAm >90 (>60 ml/min/1.73 sqM) Est GFR (CKD-EPI)NonAf 79 (>60 ml/min/1.73 sqM) Glucose 101 H (74-99) mg/dL Plasma Lactic Acid Nirmal 1.2 (0.7-2.0) mmol/L Calcium 9.3 (8.4-10.2) mg/dL Total Bilirubin 0.5 (0.2-1.3) mg/dL AST 35 (14-36) U/L ALT 22 (4-34) U/L Alkaline Phosphatase 110 (38-126) U/L Troponin I (0.000-0.034) ng/mL NT-Pro-B Natriuret Pep pg/mL Total Protein 6.7 (6.3-8.2) g/dL Albumin 4.1 (3.5-5.0) g/dL 03/16/20 03/16/20 03/16/20 Range/Units 00:03 00:03 01:40 WBC (3.8-10.6) k/uL RBC (3.80-5.40) m/uL Hgb (11.4-16.0) gm/dL Hct (34.0-46.0) % MCV (80.0-100.0) fL MCH (25.0-35.0) pg MCHC (31.0-37.0) g/dL RDW (11.5-15.5) % Plt Count (150-450) k/uL Neutrophils % % Lymphocytes % % Monocytes % % Eosinophils % % Basophils % % Neutrophils # (1.3-7.7) k/uL Lymphocytes # (1.0-4.8) k/uL Monocytes # (0-1.0) k/uL Eosinophils # (0-0.7) k/uL Basophils # (0-0.2) k/uL PT 12.1 H (9.0-12.0) sec INR 1.2 H (<1.2) APTT 30.3 H (22.0-30.0) sec D-Dimer 0.44 (<0.60) mg/L FEU Sodium (137-145) mmol/L Potassium (3.5-5.1) mmol/L Chloride (98-107) mmol/L Carbon Dioxide (22-30) mmol/L Anion Gap mmol/L BUN (7-17) mg/dL Creatinine (0.52-1.04) mg/dL Est GFR (CKD-EPI)AfAm (>60 ml/min/1.73 sqM) Est GFR (CKD-EPI)NonAf (>60 ml/min/1.73 sqM) Glucose (74-99) mg/dL Plasma Lactic Acid Nirmal (0.7-2.0) mmol/L Calcium (8.4-10.2) mg/dL Total Bilirubin (0.2-1.3) mg/dL AST (14-36) U/L ALT (4-34) U/L Alkaline Phosphatase (38-126) U/L Troponin I <0.012 (0.000-0.034) ng/mL NT-Pro-B Natriuret Pep 1410 pg/mL Total Protein (6.3-8.2) g/dL Albumin (3.5-5.0) g/dL - EKG Data -: EKG Interpreted by Me EKG shows normal: sinus rhythm, axis (Normal), intervals (VT interval is 166 ms, QTC 531 ms, both normal. The QRS duration 164 ms, prolonged consistent with left bundle branch block), QRS complexes ((Bundle-branch block.) Rate: tachycardia (Rate 107 bpm) Disposition Clinical Impression: Congestive heart failure, Dyspnea Disposition: ADMITTED IP TO THIS HOSP Condition: Fair
[2020-03-16 00:18] LABS: Basophils # (A) 0.1 k/uL (0-0.2); Basophils % (A) 1 %; Eosinophils # (A) 0.3 k/uL (0-0.7); Eosinophils % (A) 2 %; HGB 14.2 gm/dL (11.4-16.0); Lymphocytes # (A) 3.7 k/uL (1.0-4.8); Lymphocytes % (A) 31 %; MCH 29.6 pg (25.0-35.0); MCHC 32.2 g/dL (31.0-37.0); Mean Platelet Volume 7.8; Monocytes # (A) 0.4 k/uL (0-1.0); Monocytes % (A) 3 %; Neutrophils # (A) 7.3 k/uL (1.3-7.7); Neutrophils % (A) 62 %; Platelet Count 267 k/uL (150-450); RBC 4.78 m/uL (3.80-5.40); WBC 11.9 k/uL (3.8-10.6)
[2020-03-16 00:29] LABS: ALT 22 U/L (4-34); AST 35 U/L (14-36); African American GFR (CKD) >90 (>60 ml/min/1.73 sqM); Albumin 4.1 g/dL (3.5-5.0); Alkaline Phosphatase 110 U/L (38-126); Anion Gap 12 mmol/L; Blood Urea Nitrogen 14 mg/dL (7-17); Calcium 9.3 mg/dL (8.4-10.2); Carbon Dioxide 21 mmol/L (22-30); Chloride 98 mmol/L (98-107); Glucose 101 mg/dL (74-99); Non-African American GFR(CKD) 79 (>60 ml/min/1.73 sqM); Potassium 4.2 mmol/L (3.5-5.1); Sodium 131 mmol/L (137-145); Total Bilirubin 0.5 mg/dL (0.2-1.3); Total Protein 6.7 g/dL (6.3-8.2)
--- NOTE | 2020-03-16 00:34 | XR ---
EXAMINATION TYPE: XR chest 1V DATE OF EXAM: 03/16/2020 COMPARISON: 04/17/2019 HISTORY: Difficulty breathing TECHNIQUE: Single view FINDINGS: There is pulmonary interstitial edema. There are chest leads. Costophrenic angles are clear . Heart size is fairly normal. IMPRESSION: There is pulmonary interstitial edema that appears new compared to old exam. This could b e acute pneumonia. No significant pulmonary congestion seen to suggest heart failure.
[2020-03-16] MEDS ORDERED: NITROGLYCERIN OINT 1 INCH/GM PACKET TOPICAL STA (00:53)
[2020-03-16 02:14] LABS: D-Dimer 0.44 mg/L FEU (<0.60); INR 1.2 (<1.2); Partial Thromboplastin Time 30.3 sec (22.0-30.0); Prothrombin Time 12.1 sec (9.0-12.0)
[2020-03-16] MEDS ORDERED: AZITHROMYCIN 500 MG TAB PO STA (03:35)
[2020-03-16] MEDS: FUROSEMIDE 10 MG/ML 4 ML VIAL IV SCH ×2 (04:16→15:36)
[2020-03-16] MEDS ORDERED: CYCLOBENZAPRINE 10 MG TAB PO PRN (06:00)
[2020-03-16] MEDS: IPRATROPIUM 0.5 MG/2.5 ML NEBU INHALATION SCH ×4 (08:44→20:21)
[2020-03-16] MEDS ORDERED: amLODIPine 5 MG TAB PO SCH (09:00)
[2020-03-16] MEDS ORDERED: NITROGLYCERIN OINT 1 INCH/GM PACKET TOPICAL SCH (09:00)
[2020-03-16] MEDS: ASPIRIN 81 MG PO SCH (10:18)
[2020-03-16] MEDS: SPIRONOLACTONE 25 MG TAB PO SCH (10:19)
[2020-03-16] MEDS: ATORVASTATIN 40 MG TAB PO SCH (10:19)
[2020-03-16] MEDS: ISOSORBIDE MONONITRATE ER 30 MG TAB.ER.24H PO SCH (10:19)
[2020-03-16] MEDS: PANTOPRAZOLE 40 MG TABLET PO SCH (10:19)
[2020-03-16] MEDS: RIVAROXABAN 20 MG TAB PO SCH (10:19)
[2020-03-16] MEDS: DULoxetine HCL 30 MG CAPSULE.DR PO SCH ×3 (10:19→21:58)
--- NOTE | 2020-03-16 10:20 | ECHOF ---
Referral Reason:CHF MEASUREMENTS -------- HEIGHT: 165.1 cm WEIGHT: 61.2 kg BP: IVSd: 0.8 cm (0.6 - 1.1) LVIDd: 5.9 cm (3.9 - 5.3) LVPWd: 1.3 cm (0.6 - 1.1) IVSs: 1.3 cm LVIDs: 4.7 cm LVPWs: 1.4 cm LA Diam: 5.0 cm (2.7 - 3.8) LAESV Index (A-L): 39.75 ml/m Ao Diam: 2.8 cm (2.0 - 3.7) AV Cusp: 1.7 cm (1.5 - 2.6) MV EXCURSION: 15.218 mm (> 18.000) MV EF SLOPE: 72 mm/s (70 - 150) EPSS: 1.5 cm MV E Pawel: 1.07 m/s MV DecT: 194 ms MV A Pawel: 1.38 m/s MV E/A Ratio: 0.77 RAP: 5.00 mmHg RVSP: 16.34 mmHg TAPSE: 18.05 mm FINDINGS -------- This was a technically good study. The left ventricle is mildly dilated. There is severe global hypokinesis of LV . Overall left nidia tricular systolic function is severely impaired with, an EF < 20%. The right ventricle is normal in size. The left atrium is markedly dilated. LA is severely dilated >40 ml/m2 The right atrial size is normal. The aortic valve is trileaflet, and appears structurally normal. No aortic stenosis or regurgitation. Mild mitral annular calcification present. Xvieyfzt-dy-azafdd mitral regurgitation is present. Mild tricuspid regurgitation present. Right ventricular systolic pressure is normal at < 35 mmHg. There is no pulmonic regurgitation present. The aortic root size is normal. There is no pericardial effusion. CONCLUSIONS -------- 1. The left ventricle is mildly dilated. 2. There is severe global hypokinesis of LV . 3. Overall left ventricular systolic function is severely impaired with, an EF < 20%. 4. The right ventricle is normal in size. 5. The left atrium is markedly dilated. 6. LA is severely dilated >40 ml/m2 7. The right atrial size is normal. 8. Mild mitral annular calcification present. 9. Eotqkxje-pd-fmncgt mitral regurgitation is present. 10. Mild tricuspid regurgitation present. 11. There is no pulmonic regurgitation present. 12. There is no pericardial effusion. MACHINE PROGRAMMER: Kenisha Rios RDCS
[2020-03-16] MEDS: TIMOLOL 0.5% OPHTH DROPS 5 ML BTL BOTH EYES SCH (10:21)
[2020-03-16] MEDS: METOPROLOL TARTRATE 25 MG TAB PO SCH ×2 (12:01→23:29)
[2020-03-16 12:13] VITALS: BMI 22.4
--- NOTE | 2020-03-16 15:22 | CONS ---
CONSULTATION Mrs. Greenwood is a 59-year-old female with history of hypertension, chronic tobacco use, prior history of DVT and pulmonary embolism over 8 years ago who presented to the emergency room with symptoms of progressive dyspnea. She has been having dyspnea and cough and some wheezing for the last few days, got worse yesterday, was initially treated as an outpatient for respiratory infection, came into the emergency room and was subsequently admitted. Cardiology consultation was requested because of possible congestive heart failure. The patient denies any prior history of heart failure or myocardial infarction. She was in the hospital in 2015 and at that time underwent an echocardiogram that revealed an ejection fraction of 45% to 50% and her myocardial perfusion imaging showed questionable apical ischemia. Left bundle branch block was not documented at that time. She was readmitted to the hospital in February 2019 and at that time she was in atrial fibrillation. The patient is average in her exercise tolerance, has symptoms of dyspnea on exertion but no chest pain. No peripheral edema. No dizziness. No palpitation. No syncope. 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 She has a history of chronic obstructive lung disease and history of chronic tobacco use. She is feeling better overall today. Her coronary risk factors are remarkable for smoking as noted, history of hypertension and hyperlipidemia. She is nondiabetic. Current medication include aspirin 81 mg daily, Lipitor 40 mg daily, Duloxetine, cyclobenzaprine, Atrovent, isosorbide mononitrate 30 mg daily, omeprazole 20 mg daily, Xarelto 20 mg daily, amlodipine 5 mg daily and trazodone. REVIEW OF SYSTEMS: RESPIRATORY SYSTEM: She has a history of chronic obstruction lung disease and history of wheezing. She smokes, as noted. She is down to half a pack a day. GI SYSTEM: No nausea, no vomiting, no GI bleeding. SYSTEM: No dysuria or hematuria. NERVOUS SYSTEM: No history of stroke or seizure. PHYSICAL EXAMINATION: Pmevy-fqt-xvrq-old female, alert, oriented, in no apparent distress, lying supine. Blood pressure 105/70 with a heart rate in the 80s. HEAD: Normocephalic. Eyes: Sclerae anicteric. NECK: Good carotid upstroke. No bruit. No jugular venous distention. LUNGS: Clear to auscultation. HEART: Regular rate and rhythm. S1, S2. No S3. systolic murmur. No diastolic murmur. ABDOMEN: Soft, nontender. Positive bowel sounds. No organomegaly. EXTREMITIES: No edema. Intact distal pulses. LAB DATA/IMAGING: Lab data revealed troponin less than 0.012 for 2 samples. BUN and creatinine 14 and 0.81. NT-proBNP of 1410. Hemoglobin of 14.2, white blood cells of 11.9. EKG revealed sinus mechanism with left bundle branch block. Chest x-ray shows evidence of congestion. IMPRESSION: 1. Progressive dyspnea, probably with a combination of upper respiratory infection and fluid overload. The patient in the past had minimally impaired left ventricular systolic function. There is no evidence of acute coronary syndrome. 2. Chronic left bundle branch block. 3. History of chronic obstructive lung disease and chronic tobacco use. 4. History of deep venous thrombosis and pulmonary embolism with a normal D-dimer at this time. 5. History of hypertension. 6. Hyperlipidemia. RECOMMENDATIONS: From the cardiac standpoint, I will continue IV diuresis for 24 hours. I will obtain an echocardiogram with Doppler. Will follow her renal function and, depending on her progress, further recommendations will be made. Thank you for this consult. Will follow with you. MMODL / IJN: [id number] /
--- NOTE | 2020-03-16 17:30 | P.HPIM ---
History of Present Illness H&P Date: 03/16/20 Chief Complaint: Short of breath History of presenting complaint: This is a pleasant 59-year-old patient of Dr. Charlie Brown. 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 Lovenox. Current smoker. 2 weeks ago patient had gone to see her family doctor was diagnosed with bronchitis was given antibiotics she felt better. Subsequently she continued to have some dry cough and noticed that she is more and more short of breath. No edema. All uses one pillow. Though she felt better sitting up. No chest pain no palpitations decreased appetite tired rundown. No fever and chills. Patient is found to be in congestive heart failure given IV Lasix. When she is feeling better. Review of systems: GEN.: Tired EYES: None HEENT: None NECK: None RESPIRATORY: As above CARDIOVASCULAR: As above GASTROINTESTINAL: None GENITOURINARY: None MUSCULOSKELETAL: Chronic joint pains LYMPHATICS: None HEMATOLOGICAL: None PSYCHIATRY: None NEUROLOGICAL: None Past medical history to include: GERD, hypertension, hyperlipidemia, pulmonary embolism, SLEEP apnea uses CPAP, 2+ of the IVC, colorectal cancer treated surgically in 2008, right eye blindness, glaucoma, Aggrenox, Social history: Smoke half a pack a day for 42 years, daughter lives with her, alcohol occasionally. Physical examination: VITAL SIGNS: 97.8, 105, 18, 115/76, 93% room air upon presentation] GENERAL: BMI 22.5, sitting on bed, tired. EYES: Pupils equal. Conjunctiva normal. HEENT: External appearance of nose and ears normal, oral cavity grossly normal. NECK: JVD possibly raised; masses not palpable. HEART: First and second heart sounds are normal; no edema. LUNGS: Respiratory rate increased; decreased breath sounds. ABDOMEN: Soft, nontender, liver spleen not palpable, no masses palpable. PSYCH: Alert and oriented x3; mood and affect normal. NEUROLOGICAL: Cranial nerves grossly intact; no facial asymmetry, power and sensation grossly intact. LYMPHATICS: No lymph nodes palpable in the axilla and neck INVESTIGATIONS, reviewed in the clinical context: White count 9.9 hemoglobin 14.2 platelets 267 potassium 4.2 creatinine 0.81 Troponin I 3 negative pro-calcitonin 0.02 proBNP 1410 EKG tracing personally reviewed by me-sinus rhythm, left bundle-branch block Chest x-ray film personally reviewed by me-interstitial prominence 2-D echocardiogram-EF less than 20%, moderate to severe mitral regurgitation Assessment: -Acute congestive heart exacerbation from systolic dysfunction, EF less than 20%. Need to rule out underlying ischemic heart disease -COPD in a current smoker -Chronic nicotine dependence, cigarette smoker -Hyperlipidemia -Essential hypertension -Obstructive sleep apnea uses CPAP -Right eye blindness -Renounced -Left bundle-branch block -Anxiety depression otherwise specified -Osteoarthritis in multiple joints -Chronic insomnia likely from medical conditions Plan: Patient started on IV Lasix. Home medications resumed. Also on BRIA inhibitor. Aldactone added. Patient on xarelto. Care was discussed with the patient. Questions answered. Cardiology consulted. Smoke cessation counseling: This was done with the patient. Nicotine patch is being given. More than 3 minutes was spent for this Past Medical History Past Medical History: Coronary Artery Disease (CAD), Cancer, Eye Disorder, GERD/Reflux, Hyperlipidemia, Hypertension, Pneumonia, Pulmonary Embolus (PE), Sleep Apnea/CPAP/BIPAP Additional Past Medical History / Comment(s): Pulmonary Embolism, HX 2 clots inferior vena cava, colo/rectal cancer-surgically removed 2008 est, back pain from arthritis, R eye blindness, glaucoma bilaterally; uses CPAP. RAYNAUD'S. History of Any Multi-Drug Resistant Organisms: None Reported Past Surgical History: Bowel Resection, Hysterectomy, Orthopedic Surgery, Tubal Ligation Additional Past Surgical History / Comment(s): 9" removal of bowel cancer, D&C, venous ablation of L leg varicosity, cyst removed from back, colonoscopy, cervical surgery. Justo wrist sx, Neck fusion, RT KNEE MENISCUS. dental extraction Past Anesthesia/Blood Transfusion Reactions: Postoperative Nausea & Vomiting (PONV) Additional Past Anesthesia/Blood Transfusion Reaction / Comment(s): PONV one time long ago; AWOKE DURING COLONOSCOPIES. Past Psychological History: Anxiety Smoking Status: Current every day smoker Past Alcohol Use History: Rare Past Drug Use History: None Reported - Past Family History Father Family Medical History: Cancer, Deep Vein Thrombosis (DVT) Additional Family Medical History / Comment(s): Lung cancer. Father of a massive CVA Mother Family Medical History: Diabetes Mellitus, Hyperlipidemia, Hypertension Additional Family Medical History / Comment(s): Mother at age 82 yrs. Medications and Allergies Home Medications Medication Instructions Recorded Confirmed Type Celecoxib [CeleBREX] 200 mg PO DAILY 12/14/15 03/16/20 History Omeprazole 20 mg PO DAILY 12/14/15 03/16/20 History Rivaroxaban [Xarelto] 20 mg PO HS 12/14/15 03/16/20 History Timolol 0.5% Ophth Soln [Timoptic 1 drop BOTH EYES BID 12/14/15 03/16/20 History 0.5% Ophth Soln] Zolpidem [Ambien] 10 mg PO HS 12/14/15 03/16/20 History traZODone HCL [Desyrel] 100 mg PO HS PRN 12/14/15 03/16/20 History Aspirin [Adult Low Dose Aspirin EC] 81 mg PO DAILY 05/21/17 03/16/20 History Atorvastatin [Lipitor] 40 mg PO DAILY 05/21/17 03/16/20 History amLODIPine [Norvasc] 5 mg PO DAILY 05/21/17 03/16/20 History DULoxetine HCL [Cymbalta] 60 mg PO DAILY 10/05/18 03/16/20 History Cyclobenzaprine [Flexeril] 10 mg PO Q8H PRN 03/14/19 03/16/20 History Isosorbide Mononitrate ER [Imdur] 30 mg PO DAILY 04/17/19 03/16/20 History DULoxetine HCL [Cymbalta] 30 mg PO HS 03/16/20 03/16/20 History Fluticasone/Vilanterol [Breo 1 puff INHALATION RT-DAILY 03/16/20 03/16/20 History Ellipta 100-25 Mcg Inhaler] Losartan Potassium 50 mg PO DAILY 03/16/20 03/16/20 History Nicotine 21Mg/24Hr Patch [Habitrol] 1 patch TRANSDERM DAILY 03/16/20 03/16/20 History hydroCHLOROthiazide [Hydrodiuril] 25 mg PO DAILY 03/16/20 03/16/20 History Allergies Allergy/AdvReac Type Severity Reaction Status Date / Time No Known Allergies Allergy Verified 03/16/20 08:07 Physical Exam Vitals: Vital Signs Temp Pulse Pulse Resp BP BP Pulse Ox 03/16/20 09:04 89 03/16/20 08:45 86 03/16/20 04:51 97.8 F 86 18 105/71 96 03/16/20 04:29 97.6 F 85 15 109/67 99 03/16/20 03:30 91 19 114/71 96 03/16/20 03:00 81 19 109/72 96 03/16/20 01:10 94 L 03/16/20 00:58 89 20 116/85 87 L 03/16/20 00:08 96 03/16/20 00:01 91 03/15/20 23:38 97.8 F 105 H 18 115/76 93 L Intake and Output 03/15/20 03/16/20 03/16/20 22:59 06:59 14:59 Output Total 0 Balance 0 Output: Urine 0 Other: Weight 61.3 kg Results CBC & Chem 7: 03/16/20 00:03 03/16/20 00:03 Labs: Abnormal Lab Results - Last 24 Hours (Table) 03/16/20 03/16/20 03/16/20 Range/Units 00:03 00:03 01:40 WBC 11.9 H (3.8-10.6) k/uL PT 12.1 H (9.0-12.0) sec INR 1.2 H (<1.2) APTT 30.3 H (22.0-30.0) sec Sodium 131 L (137-145) mmol/L Carbon Dioxide 21 L (22-30) mmol/L Glucose 101 H (74-99) mg/dL Thrombosis Risk Factor Assmnt - Choose All That Apply Any of the Below Risk Factors Present?: Yes Each Factor Represents 1 point: Heart failure (<1month) Other Risk Factors: Yes Each Risk Factor Represents 2 Points: Age 61-74 years Other congenital or acquired thrombophilia - If yes, enter type in comment: No Thrombosis Risk Factor Assessment Total Risk Factor Score: 3 Thrombosis Risk Factor Assessment Level: Moderate Risk
[2020-03-16] MEDS ORDERED: traZODone HCL 100 MG TAB PO PRN (21:00)
[2020-03-16] MEDS: ZOLPIDEM 10 MG TAB PO SCH (21:58)
[2020-03-16] MEDS: LATANOPROST 0.005% OPHTH DROPS 2.5 ML BTL BOTH EYES SCH (22:02)
[2020-03-17] MEDS: FUROSEMIDE 10 MG/ML 4 ML VIAL IV SCH ×2 (03:03→15:37)
[2020-03-17] MEDS: DULoxetine HCL 30 MG CAPSULE.DR PO SCH ×3 (08:06→21:43)
[2020-03-17] MEDS: ASPIRIN 81 MG PO SCH (08:07)
[2020-03-17] MEDS: METOPROLOL TARTRATE 25 MG TAB PO SCH ×2 (08:07→21:25)
[2020-03-17] MEDS: PANTOPRAZOLE 40 MG TABLET PO SCH (08:07)
[2020-03-17] MEDS: SPIRONOLACTONE 25 MG TAB PO SCH (08:07)
[2020-03-17] MEDS: TIMOLOL 0.5% OPHTH DROPS 5 ML BTL BOTH EYES SCH (08:07)
[2020-03-17] MEDS: ATORVASTATIN 40 MG TAB PO SCH (08:07)
[2020-03-17] MEDS: RIVAROXABAN 20 MG TAB PO SCH (08:07)
[2020-03-17] MEDS: ISOSORBIDE MONONITRATE ER 30 MG TAB.ER.24H PO SCH (08:07)
[2020-03-17] MEDS: IPRATROPIUM 0.5 MG/2.5 ML NEBU INHALATION SCH ×4 (09:52→20:33)
[2020-03-17 10:07] LABS: African American GFR (CKD) >90 (>60 ml/min/1.73 sqM); Anion Gap 7 mmol/L; Blood Urea Nitrogen 18 mg/dL (7-17); Calcium 9.6 mg/dL (8.4-10.2); Carbon Dioxide 29 mmol/L (22-30); Chloride 100 mmol/L (98-107); Glucose 107 mg/dL (74-99); Non-African American GFR(CKD) 84 (>60 ml/min/1.73 sqM); Potassium 3.3 mmol/L (3.5-5.1); Sodium 136 mmol/L (137-145)
[2020-03-17] MEDS ORDERED: fentaNYL (PF) 50 MCG/ML 2 ML AMP ONE (10:51)
[2020-03-17] MEDS ORDERED: IV FLUID CONTINUATION 500 ML IV ONE (11:00)
[2020-03-17] MEDS: BENZOCAINE SPRAY 1 CAN TOPICAL ONE ×2 (11:06→11:17)
[2020-03-17] MEDS ORDERED: MIDAZOLAM 2 MG/2 ML VIAL IV ONE ×2 (11:25→11:27)
[2020-03-17] MEDS ORDERED: fentaNYL (PF) 50 MCG/ML 2 ML AMP IV ONE (11:25)
[2020-03-17 12:02] LABS: Glucose,Whole Blood 110 mg/dL (75-99)
[2020-03-17] MEDS ORDERED: POTASSIUM CHLORIDE ER 20 MEQ TAB.ER PO STA (12:14)
[2020-03-17] MEDS: SODIUM CHLORIDE 0.9% 1,000 ML IV SCH (12:21)
--- NOTE | 2020-03-17 12:56 | ECHOT ---
TRANSESOPHAGEAL ECHOCARDIOGRAM DATE OF SERVICE: 03/17/2020. INDICATION: Evaluation of mitral valve. PROCEDURE: After explaining the procedure to the patient, its risks and the complications, her blood pressure, heart rate, O2 saturation was monitored. She received 3 mg intravenous Versed, 50 mcg intravenous fentanyl. The probe was introduced in the esophagus with no difficulties. Images were obtained. Following that, the probe was removed. There was no immediate complication. FINDINGS: Left atrial size is dilated. Left ventriculogram appendage is normal. Left ventricular size appears to be normal. Left ventricular size and systolic function are impaired. There is evidence of global hypokinesis with ejection fraction in the 30-35 percent. The aortic valve appears to be normal. Mitral valve revealed mild thickening of the mitral valve leaflets. Tricuspid valve is normal. Descending thoracic aorta appears normal. No pericardial effusion was noted. Contrast bubble study revealed no shunting across the interatrial septum. Doppler pulse wave obtained revealed severe mitral regurgitation, central with mild aortic regurgitation. There was no shunting by color Doppler study. CONCLUSION: 1. Severely dilated left atrium with normal appearance of the left atrial appendage. 2. Severe mitral regurgitation. 3. Severely impaired left ventricular systolic function with global hypokinesis. 4. Mild tricuspid regurgitation with mild pulmonary hypertension. 5. No shunting across the interatrial septum. 6. Normal appearance of the descending thoracic aorta. MMODL / IJN: [id number] /
--- NOTE | 2020-03-17 13:34 | PN ---
PROGRESS NOTE Mrs. Greenwood 59-year-old female who presented with symptoms of progressive dyspnea and cough, was noted to have evidence of congestive heart failure. She has a prior history of chronic tobacco use, history of DVT and pulmonary embolism. She had an echocardiogram performed that showed a severely impaired left ventricular systolic function with moderate severe mitral regurgitation. She is feeling better today. She denies any chest pain. She denies any dizziness or palpitation. She has a known history of chronic left bundle branch block. She continues to be at this time on aspirin once a day, atorvastatin 40 mg daily, Lasix 40 mg IV q.12 hours, isosorbide, lisinopril 2.5 mg daily, metoprolol tartrate 25 mg twice a day, Xarelto 20 mg daily, spironolactone 25 mg daily. PHYSICAL EXAMINATION: Blood pressure is running in the high 90s to low 100s with a heart rate in the 70s. LUNGS: With mild decreased breath sounds, no wheezes. HEART: Regular rate and rhythm S1, S2. No S3 with a holosystolic murmur in the apex. No diastolic murmur, no rub. ABDOMEN: Soft, nontender. EXTREMITIES: No edema. LAB DATA: Revealed a potassium 3.3, BUN and creatinine of 18 and 0.77. IMPRESSION: 1. Symptoms of progressive dyspnea with evidence of congestive heart failure with severe cardiomyopathy and mitral regurgitation. This has shown worsening compared to her prior admission. 2. Chronic left bundle-branch block. 3. History of chronic obstructive lung disease and chronic tobacco use. 4. History of hypertension. 5. Prior history of deep venous thrombosis. RECOMMENDATION: The patient will undergo RAJAT to further evaluate her mitral valve apparatus. In the meantime, I will continue her IV Lasix for 24 hours, switch her to oral diuretics hopefully tomorrow. Continue to increase her activity. Depending on results of echo, further recommendation will be made. MMODL / IJN: [id number] /
--- NOTE | 2020-03-17 19:48 | P.PN ---
Progress Note - Text Progress Note Date: 03/17/20 Chief Complaint: Short of breath History of presenting complaint: This is a pleasant 59-year-old patient of Dr. Charlie Brown. 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 Lovenox. Current smoker. 2 weeks ago patient had gone to see her family doctor was diagnosed with bronchitis was given antibiotics she felt better. Subsequently she continued to have some dry cough and noticed that she is more and more short of breath. No edema. All uses one pillow. Though she felt better sitting up. No chest pain no palpitations decreased appetite tired rundown. No fever and chills. Patient is found to be in congestive heart failure given IV Lasix. When she is feeling better. 2-D echo showed EF of less than 20%. Today-laying in bed. Tired Getting IV Lasix. Had RAJAT.-Showed severe mitral regurgitation, EF 30-35%, severely dilated left atrium. No qchlz-pr-qwuz shunt. Review of systems: Was done for constitutional, cardiovascular, GI, pulmonary. relevant finding as above Active Medications Aspirin (Aspirin 81 Mg) 81 mg PO DAILY [facility] Last Admin: 03/17/20 08:07 Dose: 81 mg Documented by: Atorvastatin Calcium (Atorvastatin 40 Mg Tab) 40 mg PO DAILY [facility] Last Admin: 03/17/20 08:07 Dose: 40 mg Documented by: Cyclobenzaprine HCl (Cyclobenzaprine 10 Mg Tab) 10 mg PO Q8H PRN PRN Reason: Muscle Spasm Duloxetine HCl (Duloxetine Hcl 30 Mg Yue.) 30 mg PO TID [facility] Last Admin: 03/17/20 15:37 Dose: 30 mg Documented by: Furosemide (Furosemide 10 Mg/Ml 4 Ml Vial) 40 mg IV Q12H [facility] Last Admin: 03/17/20 15:37 Dose: 40 mg Documented by: Sodium Chloride (Saline 0.9%) 1,000 mls @ 20 mls/hr IV .Q24H [facility] Last Admin: 03/17/20 12:21 Dose: 20 mls/hr Documented by: Ipratropium [place] (Ipratropium 0.5 Mg/2.5 Ml Nebu) 0.5 mg INHALATION RT-QID [facility] Last Admin: 03/17/20 16:19 Dose: 0.5 mg Documented by: Latanoprost (Latanoprost 0.005% Ophth Drops 2.5 Ml Btl) 1 drops BOTH EYES HS [facility] Last Admin: 03/16/20 22:02 Dose: Not Given Documented by: Lisinopril (Lisinopril 2.5 Mg Tab) 2.5 mg PO DAILY [facility] Last Admin: 03/17/20 12:17 Dose: Not Given Documented by: Metoprolol Tartrate (Metoprolol Tartrate 25 Mg Tab) 25 mg PO BID [facility] Last Admin: 03/17/20 08:07 Dose: 25 mg Documented by: Pantoprazole Sodium (Pantoprazole 40 Mg Tablet) 40 mg PO DAILY [facility] Last Admin: 03/17/20 08:07 Dose: 40 mg Documented by: Rivaroxaban (Rivaroxaban 20 Mg Tab) 20 mg PO DAILY [facility] Last Admin: 03/17/20 08:07 Dose: 20 mg Documented by: Sodium Chloride (Sodium Chloride 0.9% Flush 10 Ml Syringe) 10 ml IV BID [facility] Last Admin: 03/17/20 08:07 Dose: 10 ml Documented by: Spironolactone (Spironolactone 25 Mg Tab) 25 mg PO DAILY [facility] Last Admin: 03/17/20 08:07 Dose: 25 mg Documented by: Timolol Maleate (Timolol 0.5% Ophth Drops 5 Ml Btl) 1 drops BOTH EYES DAILY [facility] Last Admin: 03/17/20 08:07 Dose: 1 drops Documented by: Trazodone HCl (Trazodone Hcl 100 Mg Tab) 100 mg PO HS PRN PRN Reason: Insomnia Zolpidem Tartrate (Zolpidem 10 Mg Tab) 10 mg PO HS [facility] Last Admin: 03/16/20 21:58 Dose: 10 mg Documented by: Physical examination: VITAL SIGNS: 97.5, 77, 16, 95/62, 94% on room air GENERAL: Laying in bed, tired. EYES: Pupils equal. Conjunctiva normal. NECK: JVD possibly raised; masses not palpable. HEART: First and second heart sounds are normal; no edema. LUNGS: Respiratory rate increased; decreased breath sounds. ABDOMEN: Soft, nontender, liver spleen not palpable, no masses palpable. PSYCH: Alert and oriented x3; mood and affect normal. INVESTIGATIONS, reviewed in the clinical context: Potassium 3.3 creatinine 0.77 RAJAT-severe mitral regurgitation, EF 30-35%, no vzjmf-ev-goov shunt Previous testing White count 9.9 hemoglobin 14.2 platelets 267 potassium 4.2 creatinine 0.81 Troponin I 3 negative pro-calcitonin 0.02 proBNP 1410 EKG tracing personally reviewed by me-sinus rhythm, left bundle-branch block Chest x-ray film personally reviewed by me-interstitial prominence 2-D echocardiogram-EF less than 20%, moderate to severe mitral regurgitation Assessment: -Acute congestive heart exacerbation from systolic dysfunction, EF 30-35%. Need to rule out underlying ischemic heart disease -Severe mitral regurgitation -COPD in a current smoker -Chronic nicotine dependence, cigarette smoker -Hyperlipidemia -Essential hypertension -Obstructive sleep apnea uses CPAP -Right eye blindness -Renounced -Left bundle-branch block -Anxiety depression otherwise specified -Osteoarthritis in multiple joints -Chronic insomnia likely from medical conditions Plan: Continue on IV Lasix. BRIA inhibitor. Aldactone Patient on xarelto. Follow electrolytes. Discussed with the patient. Follow with cardiology.
[2020-03-17 20:53] LABS: Glucose,Whole Blood 136 mg/dL (75-99)
[2020-03-17] MEDS: ZOLPIDEM 10 MG TAB PO SCH (21:24)
[2020-03-17] MEDS: LATANOPROST 0.005% OPHTH DROPS 2.5 ML BTL BOTH EYES SCH (21:42)
[2020-03-18] MEDS: FUROSEMIDE 10 MG/ML 4 ML VIAL IV SCH (03:45)
[2020-03-18 06:34] LABS: Glucose,Whole Blood 91 mg/dL (75-99)
[2020-03-18] MEDS: IPRATROPIUM 0.5 MG/2.5 ML NEBU INHALATION SCH ×4 (08:26→20:18)
[2020-03-18] MEDS: ATORVASTATIN 40 MG TAB PO SCH (08:44)
[2020-03-18] MEDS: RIVAROXABAN 20 MG TAB PO SCH (08:44)
[2020-03-18] MEDS: DULoxetine HCL 30 MG CAPSULE.DR PO SCH ×3 (08:44→21:49)
[2020-03-18] MEDS: ASPIRIN 81 MG PO SCH (08:44)
[2020-03-18] MEDS: METOPROLOL TARTRATE 25 MG TAB PO SCH ×2 (08:44→21:49)
[2020-03-18] MEDS: SPIRONOLACTONE 25 MG TAB PO SCH (08:44)
[2020-03-18] MEDS: PANTOPRAZOLE 40 MG TABLET PO SCH (08:44)
[2020-03-18] MEDS: TIMOLOL 0.5% OPHTH DROPS 5 ML BTL BOTH EYES SCH (08:45)
[2020-03-18 09:20] LABS: African American GFR (CKD) >90 (>60 ml/min/1.73 sqM); Anion Gap 9 mmol/L; Blood Urea Nitrogen 18 mg/dL (7-17); Calcium 9.8 mg/dL (8.4-10.2); Carbon Dioxide 28 mmol/L (22-30); Chloride 100 mmol/L (98-107); Glucose 139 mg/dL (74-99); Non-African American GFR(CKD) 82 (>60 ml/min/1.73 sqM); Potassium 3.8 mmol/L (3.5-5.1); Sodium 137 mmol/L (137-145)
--- NOTE | 2020-03-18 12:59 | PN ---
PROGRESS NOTE Mrs. Greenwood is a 59-year-old female who presented with symptoms of congestive heart failure, was found to have severe cardiomyopathy and severe mitral regurgitation. Underwent transesophageal echocardiogram that showed evidence of mitral regurgitation with an ejection fraction of 30 to 35%. She is feeling well today. She has some cough. No wheezing. She denies any dizziness. No palpitations. She denies any nausea. She has an underlying left bundle branch block. MEDICATION: At this time include Lasix 40 mg IV q.12h hours, Zestril 2.5 mg daily, metoprolol tartrate 25 mg twice a day, Xarelto 20 mg daily for history of DVT, aspirin once a day, atorvastatin 40 mg daily. PHYSICAL EXAMINATION: Blood pressure running in the 90s to 100 with a heart rate in the 80s. LUNGS: Clear. HEART: Regular rate and rhythm S1, S2. No S3 with a holosystolic murmur at the apex 3/6. No diastolic murmur. No rub. ABDOMEN: Soft, nontender. EXTREMITIES: No edema. IMPRESSION: 1. Severe cardiomyopathy probably nonischemic related to the mitral regurgitation. 2. History of left bundle branch block. 3. Prior history of deep venous thrombosis. 4. History of hypertension. RECOMMENDATIONS: I would switch her to oral diuretics. Continue on the anticoagulation with the Xarelto. We will follow her blood pressure and depending on that, adjustment of her BRIA inhibitor will be done. If she remains stable, she may be able to be discharged home tomorrow and undergo further cardiac workup to see if she is a candidate for mitral valve repair or Bi-V ICD to see if the mitral regurgitation improves. MMODL / IJN: [id number] /
[2020-03-18] MEDS: FUROSEMIDE 20 MG TAB PO SCH (16:07)
--- NOTE | 2020-03-18 16:32 | P.PN ---
Progress Note - Text Progress Note Date: 03/18/20 Chief Complaint: Short of breath History of presenting complaint: This is a pleasant 59-year-old patient of Dr. Charlie Brown. 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 Lovenox. Current smoker. 2 weeks ago patient had gone to see her family doctor was diagnosed with bronchitis was given antibiotics she felt better. Subsequently she continued to have some dry cough and noticed that she is more and more short of breath. No edema. All uses one pillow. Though she felt better sitting up. No chest pain no palpitations decreased appetite tired rundown. No fever and chills. Patient is found to be in congestive heart failure given IV Lasix. When she is feeling better. 2-D echo showed EF of less than 20%.RAJAT.-Showed severe mitral regurgitation, EF 30-35%, severely dilated left atrium. No hqdku-hg-rcnl shunt. Today-Breathing a bit better. Tired. Changed over to oral Lasix per cardiology. Review of systems: Was done for constitutional, cardiovascular, GI, pulmonary. relevant finding as above Active Medications Aspirin (Aspirin 81 Mg) 81 mg PO DAILY [facility] Atorvastatin Calcium (Atorvastatin 40 Mg Tab) 40 mg PO DAILY [facility] Last Admin: 03/18/20 08:44 Dose: 40 mg Documented by: Cyclobenzaprine HCl (Cyclobenzaprine 10 Mg Tab) 10 mg PO Q8H PRN PRN Reason: Muscle Spasm Duloxetine HCl (Duloxetine Hcl 30 Mg Yue.) 30 mg PO TID [facility] Last Admin: 03/18/20 16:07 Dose: 30 mg Documented by: Furosemide (Furosemide 20 Mg Tab) 20 mg PO BID@0800,1600 [facility] Last Admin: 03/18/20 16:07 Dose: 20 mg Documented by: Sodium Chloride (Saline 0.9%) 1,000 mls @ 20 mls/hr IV .Q24H [facility] Last Admin: 03/17/20 12:21 Dose: 20 mls/hr Documented by: Ipratropium [place] (Ipratropium 0.5 Mg/2.5 Ml Nebu) 0.5 mg INHALATION RT-QID [facility] Last Admin: 03/18/20 15:53 Dose: 0.5 mg Documented by: Latanoprost (Latanoprost 0.005% Ophth Drops 2.5 Ml Btl) 1 drops BOTH EYES HS [facility] Last Admin: 03/17/20 21:42 Dose: Not Given Documented by: Lisinopril (Lisinopril 2.5 Mg Tab) 2.5 mg PO DAILY [facility] Last Admin: 03/18/20 12:33 Dose: 2.5 mg Documented by: Metoprolol Tartrate (Metoprolol Tartrate 25 Mg Tab) 25 mg PO BID [facility] Last Admin: 03/18/20 08:44 Dose: 25 mg Documented by: Pantoprazole Sodium (Pantoprazole 40 Mg Tablet) 40 mg PO DAILY [facility] Last Admin: 03/18/20 08:44 Dose: 40 mg Documented by: Rivaroxaban (Rivaroxaban 20 Mg Tab) 20 mg PO DAILY [facility] Last Admin: 03/18/20 08:44 Dose: 20 mg Documented by: Sodium Chloride (Sodium Chloride 0.9% Flush 10 Ml Syringe) 10 ml IV BID [facility] Last Admin: 03/18/20 08:44 Dose: 10 ml Documented by: Spironolactone (Spironolactone 25 Mg Tab) 25 mg PO DAILY [facility] Last Admin: 03/18/20 08:44 Dose: 25 mg Documented by: Timolol Maleate (Timolol 0.5% Ophth Drops 5 Ml Btl) 1 drops BOTH EYES DAILY [facility] Last Admin: 03/18/20 08:45 Dose: 1 drops Documented by: Trazodone HCl (Trazodone Hcl 100 Mg Tab) 100 mg PO HS PRN PRN Reason: Insomnia Zolpidem Tartrate (Zolpidem 10 Mg Tab) 10 mg PO HS [facility] Last Admin: 03/17/20 21:24 Dose: 10 mg Documented by: Physical examination: VITAL SIGNS: 97, 82, 18, 97/58, 96% room air GENERAL: Laying in bed, awake EYES: Pupils equal. Conjunctiva normal. NECK: JVD possibly raised; masses not palpable. HEART: First and second heart sounds are normal; no edema. LUNGS: Respiratory rate normal decreased breath sounds. ABDOMEN: Soft, nontender, liver spleen not palpable, no masses palpable. PSYCH: Alert and oriented x3; mood and affect normal. INVESTIGATIONS, reviewed in the clinical context: Potassium 3.8 creatinine 0.79 RAJAT-severe mitral regurgitation, EF 30-35%, no wkyrp-uy-cldd shunt Previous testing White count 9.9 hemoglobin 14.2 platelets 267 potassium 4.2 creatinine 0.81 Troponin I 3 negative pro-calcitonin 0.02 proBNP 1410 EKG tracing personally reviewed by me-sinus rhythm, left bundle-branch block Chest x-ray film personally reviewed by me-interstitial prominence 2-D echocardiogram-EF less than 20%, moderate to severe mitral regurgitation Assessment: -Acute congestive heart exacerbation from systolic dysfunction, EF 30-35%. Improved -Severe mitral regurgitation -COPD in a current smoker -Chronic nicotine dependence, cigarette smoker -Hyperlipidemia -Essential hypertension -Obstructive sleep apnea uses CPAP -Right eye blindness -Renounced -Left bundle-branch block -Anxiety depression otherwise specified -Osteoarthritis in multiple joints -Chronic insomnia likely from medical conditions Plan: Changed over to by mouth Lasix. Encouraged to be out of bed and ablate. Hopefully home tomorrow.
[2020-03-18] MEDS: ZOLPIDEM 10 MG TAB PO SCH (21:49)
[2020-03-19] MEDS: LATANOPROST 0.005% OPHTH DROPS 2.5 ML BTL BOTH EYES SCH (00:44)
[2020-03-19] MEDS: SODIUM CHLORIDE 0.9% 1,000 ML IV SCH (00:44)
[2020-03-19 08:06] LABS: African American GFR (CKD) >90 (>60 ml/min/1.73 sqM); Anion Gap 5 mmol/L; Blood Urea Nitrogen 18 mg/dL (7-17); Calcium 9.5 mg/dL (8.4-10.2); Carbon Dioxide 27 mmol/L (22-30); Chloride 99 mmol/L (98-107); Glucose 96 mg/dL (74-99); Non-African American GFR(CKD) 83 (>60 ml/min/1.73 sqM); Potassium 4.2 mmol/L (3.5-5.1); Sodium 131 mmol/L (137-145)
[2020-03-19] MEDS: PANTOPRAZOLE 40 MG TABLET PO SCH (08:06)
[2020-03-19] MEDS: FUROSEMIDE 20 MG TAB PO SCH (08:06)
[2020-03-19] MEDS: RIVAROXABAN 20 MG TAB PO SCH (08:06)
[2020-03-19] MEDS: METOPROLOL TARTRATE 25 MG TAB PO SCH (08:06)
[2020-03-19] MEDS: DULoxetine HCL 30 MG CAPSULE.DR PO SCH (08:06)
[2020-03-19] MEDS: SPIRONOLACTONE 25 MG TAB PO SCH (08:06)
[2020-03-19] MEDS: ATORVASTATIN 40 MG TAB PO SCH (08:06)
[2020-03-19] MEDS: TIMOLOL 0.5% OPHTH DROPS 5 ML BTL BOTH EYES SCH (08:08)
[2020-03-19] MEDS ORDERED: ASPIRIN 81 MG PO SCH (09:00)
--- NOTE | 2020-03-19 10:46 | PN ---
PROGRESS NOTE Mrs. Greenwood is a 59-year-old female who presented with symptoms of dyspnea and congestive heart failure, was found to have severely impaired left ventricular systolic function with severe mitral regurgitation with baseline left bundle branch block. She is feeling better today. She is ambulating without difficulty, denying any dizziness, palpitation. Her breathing is back to her baseline. She denies any syncope. She continues to be on aspirin once a day, Lipitor 40 mg daily, Cymbalta, Lasix 20 mg twice a day, lisinopril 2.5 mg daily, metoprolol tartrate 25 mg twice a day, Xarelto 20 mg daily for prior history of DVT and spironolactone 25 mg daily. PHYSICAL EXAMINATION: Blood pressure 100/56 with a heart rate in the 70s. LUNGS: Clear. HEART irregular rate and rhythm S1, S2. No S3 with a holosystolic murmur in the apex radiating to the axilla. No diastolic murmur. ABDOMEN: Soft, nontender. EXTREMITIES: No edema. LAB DATA: Revealed potassium 4.2, BUN and 18 and 0.78. NT proBNP of 2009. IMPRESSION: 1. Severe nonischemic cardiomyopathy with severe mitral regurgitation. 2. Baseline left bundle branch block. 3. Chronic tobacco use. 4. History of deep vein thrombosis, anticoagulated. RECOMMENDATIONS: From the cardiac standpoint, the patient may be able to be discharged home today and followed as an outpatient to undergo further cardiac evaluation for possible need to undergo an ICD Bi-V placement or mitral valve repair. Her blood pressure will be monitored as an outpatient to see if the dose of her BRIA inhibitor needs to be increased further. MMODL / IJN: [id number] /
[2020-03-19] MEDS: IPRATROPIUM 0.5 MG/2.5 ML NEBU INHALATION SCH ×2 (11:56→13:28)
[2020-03-19 12:08] VITALS: BP 88/60; PULSE 80; RESP 16; TEMP 97.4
--- NOTE | 2020-03-19 17:28 | P.DS ---
Providers Date of admission: 03/16/20 03:47 Expected date of discharge: 03/19/20 Attending physician: Mason Amador Consults: 03/16/20 03:52 Consult Physician Routine Consulting Provider: Seema Felton Consult Reason/Comments: New CHF Do you want consulting provider notified?: Yes Primary care physician: Charlie Brown [facility] Course: Chief Complaint: Short of breath History of presenting complaint: This is a pleasant 59-year-old patient of Dr. Charlie Brown. 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 Lovenox. Current smoker. 2 weeks ago patient had gone to see her family doctor was diagnosed with bronchitis was given antibiotics she felt better. Subsequently she continued to have some dry cough and noticed that she is more and more short of breath. No edema. All uses one pillow. Though she felt better sitting up. No chest pain no palpitations decreased appetite tired rundown. No fever and chills. Patient is found to be in congestive heart failure given IV Lasix. When she is feeling better. 2-D echo showed EF of less than 20%.RAJAT.-Showed severe mitral regurgitation, EF 30-35%, severely dilated left atrium. No poblw-rr-euky shunt. She will need further outpatient cardiac evaluation for possible ICD by biventricular placement or mitral valve repair. Today-Doing better. Breathing stable. Ambulating. Discussed with patient. Cleared by currently. Consultation: Dr. Beal from cardiology Physical examination: VITAL SIGNS: 97.4, 80, 16, 88/60, 96% room air GENERAL: Sitting up comfortable EYES: Pupils equal. Conjunctiva normal. NECK: JVD possibly raised; masses not palpable. HEART: First and second heart sounds are normal; no edema. LUNGS: Respiratory rate normal decreased breath sounds. ABDOMEN: Soft, nontender, liver spleen not palpable, no masses palpable. PSYCH: Alert and oriented x3; mood and affect normal. INVESTIGATIONS, reviewed in the clinical context: Potassium 4.2 creatinine 0.78 proBNP 2009 RAJAT-severe mitral regurgitation, EF 30-35%, no kiicc-wu-ncvj shunt Previous testing White count 9.9 hemoglobin 14.2 platelets 267 potassium 4.2 creatinine 0.81 Troponin I 3 negative pro-calcitonin 0.02 proBNP 1410 EKG tracing personally reviewed by me-sinus rhythm, left bundle-branch block Chest x-ray film personally reviewed by me-interstitial prominence 2-D echocardiogram-EF less than 20%, moderate to severe mitral regurgitation Assessment: -Acute congestive heart exacerbation from systolic dysfunction, EF 30-35%. Improved -Severe mitral regurgitation -COPD in a current smoker -Chronic nicotine dependence, cigarette smoker -Hyperlipidemia -Essential hypertension -Obstructive sleep apnea uses CPAP -Right eye blindness -Renounced -Left bundle-branch block -Anxiety depression otherwise specified -Osteoarthritis in multiple joints -Chronic insomnia likely from medical conditions Disposition: Home Patient Condition at Discharge: Fair Plan - Discharge Summary Discharge Rx Participant: No New Discharge Prescriptions: New Spironolactone [Aldactone] 25 mg PO DAILY #30 tab Furosemide [Lasix] 20 mg PO BID@0800,1600 #60 tab Metoprolol Tartrate [Lopressor] 25 mg PO BID #60 tab Albuterol Sulfate [Ventolin HFA] 1 - 2 puff INHALATION Q6H PRN #1 inhaler PRN Reason: Wheezing lisinopriL [Zestril] 2.5 mg PO DAILY@1200 #30 tab Continue traZODone HCL [Desyrel] 100 mg PO HS PRN PRN Reason: Insomnia Zolpidem [Ambien] 10 mg PO HS Timolol 0.5% Ophth Soln [Timoptic 0.5% Ophth Soln] 1 drop BOTH EYES BID Rivaroxaban [Xarelto] 20 mg PO HS Omeprazole 20 mg PO DAILY Atorvastatin [Lipitor] 40 mg PO DAILY Aspirin [Adult Low Dose Aspirin EC] 81 mg PO DAILY DULoxetine HCL [Cymbalta] 60 mg PO DAILY Cyclobenzaprine [Flexeril] 10 mg PO Q8H PRN PRN Reason: Muscle Spasm DULoxetine HCL [Cymbalta] 30 mg PO HS Fluticasone/Vilanterol [Breo Ellipta 100-25 Mcg Inhaler] 1 puff INHALATION RT-DAILY Nicotine 21Mg/24Hr Patch [Habitrol] 1 patch TRANSDERM DAILY Discontinued Celecoxib [CeleBREX] 200 mg PO DAILY amLODIPine [Norvasc] 5 mg PO DAILY Isosorbide Mononitrate ER [Imdur] 30 mg PO DAILY hydroCHLOROthiazide [Hydrodiuril] 25 mg PO DAILY Losartan Potassium 50 mg PO DAILY Discharge Medication List Omeprazole 20 mg PO DAILY 12/14/15 [History] Rivaroxaban [Xarelto] 20 mg PO HS 12/14/15 [History] Timolol 0.5% Ophth Soln [Timoptic 0.5% Ophth Soln] 1 drop BOTH EYES BID 12/14/15 [History] Zolpidem [Ambien] 10 mg PO HS 12/14/15 [History] traZODone HCL [Desyrel] 100 mg PO HS PRN 12/14/15 [History] Aspirin [Adult Low Dose Aspirin EC] 81 mg PO DAILY 05/21/17 [History] Atorvastatin [Lipitor] 40 mg PO DAILY 05/21/17 [History] DULoxetine HCL [Cymbalta] 60 mg PO DAILY 10/05/18 [History] Cyclobenzaprine [Flexeril] 10 mg PO Q8H PRN 03/14/19 [History] DULoxetine HCL [Cymbalta] 30 mg PO HS 03/16/20 [History] Fluticasone/Vilanterol [Breo Ellipta 100-25 Mcg Inhaler] 1 puff INHALATION RT- DAILY 03/16/20 [History] Nicotine 21Mg/24Hr Patch [Habitrol] 1 patch TRANSDERM DAILY 03/16/20 [History] Albuterol Sulfate [Ventolin HFA] 1 - 2 puff INHALATION Q6H PRN #1 inhaler 03/19/20 [Rx] Furosemide [Lasix] 20 mg PO BID@0800,1600 #60 tab 03/19/20 [Rx] Metoprolol Tartrate [Lopressor] 25 mg PO BID #60 tab 03/19/20 [Rx] Spironolactone [Aldactone] 25 mg PO DAILY #30 tab 03/19/20 [Rx] lisinopriL [Zestril] 2.5 mg PO DAILY@1200 #30 tab 03/19/20 [Rx] Follow up Appointment(s)/Referral(s): dr ian [Other] Jamilah Beal MD [STAFF PHYSICIAN] - 1 Week (Pt to schedule to appointment as office is closed at time of discharge. Ensure that the office is notified that the appointment is after a hospital admission.) Charlie Brown MD [Primary Care Provider] - 1-2 days (Pt to schedule to appointment as office is closed at time of discharge. Ensure that the office is notified that the appointment is after a hospital admission.) Patient Instructions/Handouts: Heart Failure (DC) Activity/Diet/Wound Care/Special Instructions: bmp - 5 days Discharge Disposition: HOME SELF-CARE
== END 2020-03-19 14:46 | disposition home or self-care (01) | DRG 293 ==
LOC: EC 23:37 → 3SCARD 03-16 03:47 → 2SICU 03-16 04:31 → 3SCARD 03-17 01:06
PROVIDERS: ADMIT Hospitalist; ATTEND Hospitalist
PROC: B246ZZ4 Ultrasonography of Right and Left Heart, Transesophageal (ICD-10-PCS; principal; 2020-03-17 10:00)
DX: I11.0 Hypertensive heart disease with heart failure (principal); E78.5 Hyperlipidemia, unspecified; F17.210 Nicotine dependence, cigarettes, uncomplicated; F41.8 Other specified anxiety disorders; F51.04 Psychophysiologic insomnia; G47.33 Obstructive sleep apnea (adult) (pediatric); Z99.89 Dependence on other enabling machines and devices; H54.61 Unqualified visual loss, right eye, normal vision left eye; I25.10 Atherosclerotic heart disease of native coronary artery without angina pectoris; I34.0 Nonrheumatic mitral (valve) insufficiency; I42.8 Other cardiomyopathies; I44.7 Left bundle-branch block, unspecified; I48.91 Unspecified atrial fibrillation; I50.23 Acute on chronic systolic (congestive) heart failure; I73.00 Raynaud's syndrome without gangrene; J06.9 Acute upper respiratory infection, unspecified; J44.9 Chronic obstructive pulmonary disease, unspecified; K21.9 Gastro-esophageal reflux disease without esophagitis; M15.9 Polyosteoarthritis, unspecified; Z79.01 Long term (current) use of anticoagulants; Z79.1 Long term (current) use of non-steroidal anti-inflammatories (NSAID); Z79.82 Long term (current) use of aspirin; Z79.899 Other long term (current) drug therapy; Z80.1 Family history of malignant neoplasm of trachea, bronchus and lung; Z82.3 Family history of stroke; Z82.49 Family history of ischemic heart disease and other diseases of the circulatory system; Z83.3 Family history of diabetes mellitus; Z85.048 Personal history of other malignant neoplasm of rectum, rectosigmoid junction, and anus; Z86.711 Personal history of pulmonary embolism; Z86.718 Personal history of other venous thrombosis and embolism; Z90.710 Acquired absence of both cervix and uterus; Z98.1 Arthrodesis status; Z20.828 Contact with and (suspected) exposure to other viral communicable diseases
CPT/HCPCS: 36415; 71045; 80048; 80053; 83605; 83880; 84145; 84484; 85025; 85379; 85610; 85730; 93005; 93306; 93312; 93320; 93325; 94640; 96365; 96375; 99285

== ENCOUNTER → 2020-03-23 | Outpatient (CLI) | payer MEDICARE, OTHER ==
--- NOTE | 2020-03-27 08:54 | MM ---
Reason for exam: screening (asymptomatic). Last mammogram was performed 1 year ago. History: Patient is postmenopausal and has history of colon cancer at age 47. Physical Findings: A clinical breast exam by your physician is recommended on an annual basis and results should be correlated with mammographic findings. MG 3D Screening Mammo W/Cad Bilateral CC and MLO view(s) were taken. Prior study comparison: March 11, 2019, bilateral MG 3d screening mammo w/cad. December 31, 2017, bilateral MG 3d screening mammo w/cad. There are scattered fibroglandular densities. Benign appearing bilateral calcifications. No significant changes when compared with prior studies. ASSESSMENT: Benign, BI-RAD 2 RECOMMENDATION: Routine screening mammogram of both breasts in 1 year.
== END | disposition home or self-care (01) ==
LOC: RADMAMWWP 13:02
PROVIDERS: ATTEND Family Medicine
DX: Z12.31 Encounter for screening mammogram for malignant neoplasm of breast (principal)
CPT/HCPCS: 77063; 77067

== ENCOUNTER 2020-03-30 07:34 | Day surgery (SDC) | payer MEDICARE, OTHER ==
[2020-03-29 11:41] VITALS: BMI 21.4
[~2020-03-30 07:34] MED LIST changes: +ALPRAZolam 0.25 MG TAB PO PRN; +ALPRAZolam 0.5 MG TAB PO PRN; +ASPIRIN 325 MG TAB PO STA; +ATORVASTATIN 80 MG TAB PO STA; -LACTATED RINGERS 1,000 ML IV SCH; -LIDOCAINE 1% 20 ML VIAL (10MG/ML) FOR IV START INTRADERMA PRN; +NITROGLYCERIN SL TABS 0.4 MG TAB SUBLINGUAL PRN; +SODIUM CHLORIDE 0.9% 1,000 ML in EMPTY BAG 1 BAG IV ONE
[2020-03-30 08:14] VITALS: RESP 16; TEMP 97.8
[2020-03-30] MEDS ORDERED: SODIUM CHLORIDE 0.9% 1,000 ML IV ONE (08:14)
[2020-03-30] MEDS ORDERED: VERAPAMIL 2.5 MG/ML 2 ML AMP ONE (09:16)
[2020-03-30] MEDS ORDERED: fentaNYL (PF) 50 MCG/ML 2 ML AMP ONE (09:16)
[2020-03-30] MEDS ORDERED: LIDOCAINE 1% INJ 10MG/ML (20 ML MDV) ONE (09:17)
[2020-03-30] MEDS ORDERED: fentaNYL (PF) 50 MCG/ML 2 ML AMP IV ONE (09:30)
[2020-03-30] MEDS ORDERED: LIDOCAINE 1% INJ 10MG/ML (20 ML MDV) SQ ONE (09:33)
[2020-03-30] MEDS ORDERED: MIDAZOLAM 2 MG/2 ML VIAL IV ONE (09:35)
[2020-03-30] MEDS ORDERED: VERAPAMIL SYRINGE (5 MG/10 ML) INTRAARTER ONE (09:38)
[2020-03-30] MEDS ORDERED: HEPARIN SODIUM 1,000 UN/ML (10ML VL) ONE (09:45)
[2020-03-30] MEDS ORDERED: HEPARIN SODIUM 1,000 UN/ML (10ML VL) IV ONE (09:46)
[2020-03-30] MEDS ORDERED: IOPAMIDOL-370 125ML BTL INJ ONE (09:55)
[2020-03-30] MEDS ORDERED: RX INFO: IV CONTRAST WAS GIVEN 1 EACH MISC MISCELLANE PRN (10:09)
[2020-03-30] MEDS ORDERED: traZODone HCL 100 MG TAB PO PRN (10:10)
[2020-03-30] MEDS ORDERED: SODIUM CHLORIDE 0.9% 1,000 ML IV SCH (10:15)
--- NOTE | 2020-03-30 10:40 | CC ---
CARDIAC CATHETERIZATION REPORT Mr. Greenwood is a 59-year-old female who recently presented with symptoms of congestive heart failure, was found to have severe cardiomyopathy, severe mitral regurgitation. In view of that, recommendation was made regarding cardiac catheterization. The procedures, risks, and complications were discussed with the patient who is in full understanding and agreement. PROCEDURE: Patient was brought to the cathode builder in a fasting semi-sedated state after receiving fentanyl and Benadryl and achieving moderate conscious sedated state using Xylocaine anesthesia and Seldinger technique. A 6-English sheath was introduced in the right radial artery. Attempts to exchange the Angiocath in the right basilic vein were unsuccessful with inability to advance the wire. At that time, selective right and left coronary angiography were performed using 5-English 3.5 bend right and left Rambo catheter. Multiple views of the coronary artery including hemiaxial views were obtained. Following that, a 5-English tight pigtail catheter was introduced into the left ventricle and a 30-degree IZAGUIRRE view of the left ventricle was obtained. Following that, catheter and sheath were removed. Hemostasis was obtained with deployment of a TR band. There was no immediate complication. Patient is returned to her room in stable condition. Of note, the patient received 3500 units of intravenous heparin as well as intra-arterial verapamil. FINDINGS: LEFT MAIN: This is a short size vessel, bifurcating into left circumflex, left anterior descending artery. Left main coronary artery has no evidence of high-grade stenosis. LEFT ANTERIOR DESCENDING ARTERY: This is a large-sized vessel, reaching toward the apex with a wraparound apex segment, giving rise to the diagonal branch. The left main artery and its branches have no evidence of obstructive coronary artery disease. LEFT CIRCUMFLEX: This is a large nondominant vessel, giving rise to 2 obtuse marginal branch, the first one is large in caliber. The left circumflex as well as branches have no evidence of obstructive coronary artery disease. RIGHT CORONARY ARTERY: This is a large dominant vessel, moderate in caliber, giving rise to a PDA and PLV distally. The right coronary artery and its branches have no evidence of obstructive coronary artery disease. LEFT VENTRICULOGRAM: Left ventriculogram is performed in the IZAGUIRRE view and revealed severe global hypokinesis with estimated ejection fraction of 25% to 30%. There was 4+ mitral regurgitation. HEMODYNAMICS: There was no gradient across the aortic valve. The left ventricular end- diastolic pressure was 10-12 mmHg. CONCLUSION: 1. Normal coronary arteries. 2. Severely impaired left ventricular systolic function with 4+ mitral regurgitation. RECOMMENDATION: In view of finding anatomy, I recommend continue maximizing medical therapy and evaluate the patient for possible ICD Bi V pacing and there is no improvement in the mitral regurgitation to proceed with mitral valve surgery. Those findings and recommendation were discussed with the patient and her family, who are in full understanding and agreement. Duration of procedure is 26 minutes. MMODL / IJN: [id number] /
[2020-03-30 13:00] VITALS: BP 98/55; PULSE 71
[2020-03-30] MEDS ORDERED: TIMOLOL 0.5% OPHTH DROPS 5 ML BTL BOTH EYES SCH (21:00)
[2020-03-30] MEDS ORDERED: METOPROLOL TARTRATE 25 MG TAB PO SCH (21:00)
[2020-03-30] MEDS ORDERED: ZOLPIDEM 10 MG TAB PO PRN (21:00)
[2020-03-31] MEDS ORDERED: PANTOPRAZOLE 40 MG TABLET PO SCH (07:30)
[2020-03-31] MEDS ORDERED: SPIRONOLACTONE 25 MG TAB PO SCH (09:00)
[2020-03-31] MEDS ORDERED: ATORVASTATIN 40 MG TAB PO SCH (09:00)
== END 2020-03-30 13:36 | disposition home or self-care (01) ==
LOC: CATHCVL 07:34
PROVIDERS: ATTEND Internal Medicine Interventional Cardiology
DX: I34.0 Nonrheumatic mitral (valve) insufficiency (principal); I42.9 Cardiomyopathy, unspecified; I11.0 Hypertensive heart disease with heart failure; I50.9 Heart failure, unspecified; I44.7 Left bundle-branch block, unspecified; E78.2 Mixed hyperlipidemia; I73.9 Peripheral vascular disease, unspecified; Z87.891 Personal history of nicotine dependence; Z86.718 Personal history of other venous thrombosis and embolism; Z86.711 Personal history of pulmonary embolism; Z79.01 Long term (current) use of anticoagulants; Z79.899 Other long term (current) drug therapy; Z79.82 Long term (current) use of aspirin; Z82.49 Family history of ischemic heart disease and other diseases of the circulatory system
CPT/HCPCS: 93458; C1751; C1769 ×2; C1894; J2250; J2001; J3010; J1644; Q9967

== ENCOUNTER → 2020-04-14 | Outpatient (CLI) | payer MEDICARE, OTHER ==
--- NOTE | 2020-04-19 13:14 | P.ARTDOP ---
Arterial Doppler LOWER EXTREMITY ARTERIAL DOPPLER: DATE OF SERVICE: 04/14/2020 Reason for study: Leg pain with walking. Doppler waveforms: Multiphasic bilaterally throughout. Pulse volume recording: []. Pressure gradients: None. Ankle-brachial indices: Greater than 1 bilaterally. Toe brachial indices: 0.71 on the right, 0.63 on the left Impression: Normal study.
== END | disposition home or self-care (01) ==
LOC: RADUSWWP 14:12
PROVIDERS: ATTEND Family Medicine
DX: I73.9 Peripheral vascular disease, unspecified (principal)
CPT/HCPCS: 93922

== ENCOUNTER → 2020-04-18 | Outpatient (CLI) | payer MEDICARE, OTHER ==
[2020-04-18 14:43] LABS: Magnesium 1.7 mg/dL (1.6-2.3)
[2020-04-18 14:45] LABS: HCT 45.7 % (34.0-46.0); MCH 31.2 pg (25.0-35.0); MCHC 32.8 g/dL (31.0-37.0); MCV 95.1 fL (80.0-100.0); Mean Platelet Volume 7.8; Platelet Count 254 k/uL (150-450); RBC 4.81 m/uL (3.80-5.40); RDW 13.1 % (11.5-15.5); WBC 8.2 k/uL (3.8-10.6)
== END | disposition home or self-care (01) ==
LOC: LABPAT 12:23
PROVIDERS: ATTEND Internal Medicine Clinical Cardiac Electrophysiology
DX: Z01.818 Encounter for other preprocedural examination (principal); I42.8 Other cardiomyopathies
CPT/HCPCS: 36415; 82565; 83735; 84443; 84520; 85027

== ENCOUNTER 2020-05-15 07:44 | Day surgery (SDC) | payer MEDICARE, OTHER ==
[2020-05-10 09:24] VITALS: BMI 21.6
[~2020-05-15 07:44] MED LIST changes: -ALPRAZolam 0.25 MG TAB PO PRN; -ALPRAZolam 0.5 MG TAB PO PRN; -ASPIRIN 325 MG TAB PO STA; -ATORVASTATIN 80 MG TAB PO STA; +LACTATED RINGERS 1,000 ML IV SCH; -NITROGLYCERIN SL TABS 0.4 MG TAB SUBLINGUAL PRN; +SODIUM CHLORIDE 0.9% 1,000 ML IV SCH; -SODIUM CHLORIDE 0.9% 1,000 ML in EMPTY BAG 1 BAG IV ONE
[2020-05-15] MEDS ORDERED: ceFAZolin 1,000 MG in SODIUM CHLORIDE 0.9% IRRIGATIO 250 ML IRRIGATION ONE (08:03)
[2020-05-15 08:21] VITALS: RESP 18; TEMP 97.9
[2020-05-15] MEDS ORDERED: MIDAZOLAM 2 MG/2 ML VIAL ONE (10:57)
[2020-05-15] MEDS ORDERED: PROPOFOL 10 MG/ML 20 ML VIAL IV ONE (10:57)
[2020-05-15] MEDS ORDERED: fentaNYL (PF) 50 MCG/ML 2 ML AMP ONE (10:57)
[2020-05-15] MEDS: IOPAMIDOL-370 50ML BTL INJ ONE ×2 (11:20→12:27)
[2020-05-15] MEDS ORDERED: LIDOCAINE 1% INJ 10MG/ML (20 ML MDV) SQ ONE (11:41)
[2020-05-15] MEDS ORDERED: IOPAMIDOL-370 50ML BTL INJ ONE (12:49)
[2020-05-15] MEDS ORDERED: SODIUM CHLORIDE 0.9% 500 ML 500 ML IV ONE (13:51)
[2020-05-15] MEDS ORDERED: ACETAMINOPHEN TAB 325 MG TAB PO PRN (14:34)
--- NOTE | 2020-05-15 15:00 | P.PRLE ---
RE: Juliana Greenwood Dear Charlie meyer underwent successful implantation of a biventricular ICD for management of heart failure in the setting of severe nonischemic cardio myopathy. Hopefully this results in improvement in heart failure status she will continue her medications unchanged and will follow-up with you and Dr. Beal as before Thank you for entrusting me with the care of the patient Warm regards Sincerely Felix Alarcon
--- NOTE | 2020-05-15 15:30 | P.PCN ---
Preoperative Diagnosis: Left upper extremity venogram 15 mL IV dye injected in the left arm Multiple small axillary veins approaching the clavicle. The point of confluence just under the clavicle and a patent subclavian vein and innominate vein thereafter Plan Proceed with 500 twice daily implantation
--- NOTE | 2020-05-15 16:17 | XR ---
EXAMINATION TYPE: XR chest 1V portable DATE OF EXAM: 05/15/2020 COMPARISON: 03/16/2020 INDICATION: Lead placement check TECHNIQUE: Single frontal view of the chest is obtained. FINDINGS: The heart size is normal. The pulmonary vasculature is normal. The lungs are clear. Pacemaker overlies left chest. 3 leads are present. No pneumothorax is evident. IMPRESSION: 1. No pneumothorax post pacemaker placement.
--- NOTE | 2020-05-15 16:30 | PCN ---
PROCEDURE NOTE Juliana Greenwood is a 60-year-old female with severe and progressive cardiomyopathy with congestive heart failure symptoms, heart failure admissions, left bundle branch block greater than 170 milliseconds, QRS fractionation on 12-lead EKG, nonischemic cardiomyopathy, normal coronary arteries. On guideline-directed medical treatment. Despite that, she has had progressive drop in her left ventricular ejection fraction. She was brought in for a biventricular ICD implantation. The patient is brought to the EP lab in a fasting state. Written informed consent was obtained prior to the procedure. The left shoulder area was prepped and draped as per protocol. 1% lidocaine was used for local anesthesia. A 4 cm incision was made parallel to the deltopectoral groove, about 1.5 cm medial to the incision was carried down to the level of the pectoralis muscle. A subfascial pocket was made, hemostasis was assured. Accessing the left axillary vein was very difficult. It appeared that there were multiple axillary veins were joined together and the point of confluence was just under the clavicle at the level of first rib. Very lateral axillary vein access had to be obtained and 3 wires were placed. This part of the procedure took a very long time since multiple small axillary veins were noted with one large subclavian vein. These are very lateral axillary vein accesses. Following that, the sheaths were placed in the right heart. The next part of the procedure was accessing the coronary sinus. This was again very difficult and finally a right atrial exam was performed and this showed that the coronary sinus had a very high, acute takeoff and at the same opening there was middle cardiac vein which was heading caudally at 90 degrees to the origin of the coronary sinus. The coronary sinus catheter was unable to engage the CS, finally an extended hook sheath was placed just outside the coronary sinus and Advantage wire was placed in the coronary sinus. Following that, the coronary sinus sheath was placed in the CS, over the Glidewire. A coronary sinus venogram was performed and a large anterolateral vein was noted and the posterolateral vein and middle cardiac vein noted. The Medtronic screw-in lead was placed very deep and distally in the anterolateral vein and after screwing the lead with 4 turns, once this lead was tested for stability this resulted in the coronary sinus sheath taking out and dislodging out of the coronary sinus. This was related to the origin of the coronary sinus, which was at an acute angle with a high takeoff. Transient heart block was also noted and the RV lead was placed for pacing. Thereafter, the patient's rhythm recovered completely and she required only occasional backup RV pacing. The coronary sinus was once again accessed in the similar manner and a different lead, this time a [employer] lead was placed, this was model #1458Q, 86 cm in length and serial #[id number]. This was positioned in the anterolateral vein successfully in stable position. The sheath was removed and the lead was stable. The ICD lead was a Medtronic lead model #6935M, 62 cm length and serial number #[id number], this was screwed in the RV septum. The R-waves are 20 mV, pacing impedance 513 ohms, high-voltage impedance 75 ohms, pacing threshold 0.75 V at 0.4 milliseconds, 10 V test negative. LV pacing impedance was 570 ohms and pacing threshold from the proximal poles of 1 V at 0.4 milliseconds. No diaphragmatic stimulation. The RV lead was unscrewed in the right atrial appendage and despite a good current of injury, there was dislodgement. Therefore, the right atrial lead was then repositioned in the right atrial appendage and this time this remained stable with mechanical movement. This is a 52 cm, model #5076 serial #[id number]. P waves were 4 mV, pacing impedance 513 ohms, high-voltage 503 and pacing threshold 0.75 V at 0.4 milliseconds. 10 V test negative. The sheaths were removed. The leads were secured to the underlying pectoralis muscle and the leads were connected to the generator (Inspirote[employer] MRI quad DF 4-lead, model number [id number] serial #[id number]. The leads and the generator were then placed in a subfascial pocket and the wound was closed in 3 layers and dressed per protocol. RESULT: Successful biventricular ICD implantation for severe nonischemic cardiomyopathy with heart failure and left bundle branch block. This was a long procedure. 1. Accessing the axillary vein was difficult on account of the anatomic variation as described above. 2. Access in the coronary sinus was very difficult because of a high takeoff at the acute angle. 3. However, the LV lead was successfully placed in very stable position and a biventricular ICD was completed. The patient tolerated the procedure well without any acute complications. The device was then programmed to VT zone at 176 beats per minute, VF zone at 214 beats per minute with appropriate antitachycardia pacing, cardioversion, defibrillation and long detection intervals. Adaptive BiV pacing was turned on. Pacing from the proximal pole L3-L4 was provided. TAPAN / MINGON: [id number] /
[2020-05-15] MEDS ORDERED: HYDROcodone/APAP 7.5-325MG 1 EACH TAB PO ONE (17:00)
[2020-05-15] MEDS ORDERED: ACETAMINOPHEN IV (For NPO) 1,000 MG in EMPTY BAG 1 BAG IVPB ONE (17:00)
[2020-05-15] MEDS ORDERED: HYDROcodone/APAP 7.5-325MG 1 EACH TAB ONE (17:01)
[2020-05-15 17:35] VITALS: BP 105/62; PULSE 90
[2020-05-15] MEDS ORDERED: METOPROLOL TARTRATE 25 MG TAB PO SCH (21:00)
== END 2020-05-15 18:05 | disposition home or self-care (01) ==
LOC: CATHEP 07:44
PROVIDERS: ATTEND Internal Medicine Clinical Cardiac Electrophysiology
DX: I42.8 Other cardiomyopathies (principal); I44.7 Left bundle-branch block, unspecified; I34.0 Nonrheumatic mitral (valve) insufficiency; I50.22 Chronic systolic (congestive) heart failure; I48.0 Paroxysmal atrial fibrillation; I11.0 Hypertensive heart disease with heart failure; E78.5 Hyperlipidemia, unspecified; I73.9 Peripheral vascular disease, unspecified; J44.9 Chronic obstructive pulmonary disease, unspecified; Z87.891 Personal history of nicotine dependence; Z82.49 Family history of ischemic heart disease and other diseases of the circulatory system; Z85.038 Personal history of other malignant neoplasm of large intestine; Z92.21 Personal history of antineoplastic chemotherapy; Z79.899 Other long term (current) drug therapy; Z79.01 Long term (current) use of anticoagulants; Z97.2 Presence of dental prosthetic device (complete) (partial); Z79.51 Long term (current) use of inhaled steroids; Z79.82 Long term (current) use of aspirin; Z90.49 Acquired absence of other specified parts of digestive tract; Z98.890 Other specified postprocedural states; Z98.1 Arthrodesis status
CPT/HCPCS: 33225; 33249; 71045; C1769 ×5; C1892; C1730; C1887; C1898; C1895; C1900; C1882; J2250; J0690 ×2; J2001; J3010; J0131; J2704; Q9967

== ENCOUNTER → 2020-07-24 | Outpatient (CLI) | payer MEDICARE, OTHER ==
[2020-07-24 21:41] LABS: African American GFR (CKD) 62.3 (60.0-200.0); Albumin 4.9 g/dL (3.80-4.90); Albumin/Globulin Ratio 2.23 (1.60-3.17); Anion Gap 11.6 mmol/L (4.00-12.00); BUN/Creat Ratio 12.73 Ratio (12.00-20.00); Calcium 9.7 mg/dL (8.7-10.3); Carbon Dioxide 28.4 mmol/L (21.6-31.8); Chol/HDL Ratio 3.3; Globulin 2.2 g/dL (1.6-3.3); LDL Cholesterol,Calculated 82.2 mg/dL (0.0-131.0); Non-African American GFR(CKD) 53.8 (60.0-200.0); Potassium 4.1 mmol/L (3.5-5.5); Total Bilirubin 0.4 mg/dL (0.3-1.2); Total Protein 7.1 g/dL (6.2-8.2); VLDL Calculation 32.8 mg/dL (5.00-40.00)
== END | disposition home or self-care (01) ==
LOC: LABWHC1 12:49
PROVIDERS: ATTEND Internal Medicine Interventional Cardiology
DX: E78.2 Mixed hyperlipidemia (principal)
CPT/HCPCS: 36415; 80053; 80061

== ENCOUNTER → 2020-08-09 | Outpatient (CLI) | payer MEDICARE, OTHER ==
--- NOTE | 2020-08-09 19:37 | CT ---
EXAMINATION TYPE: CT lumbar spine wo con DATE OF EXAM: 08/09/2020 4:46 PM COMPARISON: None available. HISTORY: chronic low back pain CT DLP: 439 mGycm Automated exposure control for dose reduction was used. Unenhanced CT of the lumbar spine was performed. Bone and soft tissue window settings are submitted as well as coronal and sagittal reconstructions. There is no acute fracture or subluxation. There is severe disc height narrowing at L4-S1 and moderat e at L3-L4. L1-L2: No significant central canal or foramina stenosis. L2-L3: No significant central canal or foraminal stenosis. L3-L4: Disc bulge and facet arthropathy with suggestion of at least mild bilateral foraminal stenoses . No significant central canal stenosis. L4-L5: Disc bulge and facet arthropathy with suggestion of moderate to severe right and mild to moder ate left foraminal stenosis. L5-S1: Disc bulge and facet arthropathy with suggestion of moderate to severe bilateral foraminal ludmila nosis. IMPRESSION: Moderate to severe lumbar spondylosis most pronounced at L4-S1.
== END | disposition home or self-care (01) ==
LOC: RADCTMAIN 16:30
PROVIDERS: ATTEND Physical Medicine & Rehabilitation
DX: M47.817 Spondylosis without myelopathy or radiculopathy, lumbosacral region (principal)
CPT/HCPCS: 72131

== ENCOUNTER → 2020-10-13 | Outpatient (CLI) | payer MEDICARE, OTHER ==
--- NOTE | 2020-10-14 19:08 | CT ---
EXAMINATION TYPE: CT cervical spine wo con DATE OF EXAM: 10/13/2020 COMPARISON: None HISTORY: Spondylosis without myelopathy or radiculopathy. CT DLP: 348 mGycm Automated exposure control for dose reduction was used. TECHNIQUE: CT scan of the cervical spine is obtained without contrast, axial images are obtained, sa gittal and coronal reformatted images are also reviewed. FINDINGS: Assessment spinal canal limited by resolution and artifact. C2-C3 no disc herniation or canal stenosis. No foraminal At C3-C4 mild degenerative disc disease. Mild bilateral uncovertebral joint hypertrophy greater on th e right. No foraminal encroachment or canal stenosis At C4-C5 there is severe degenerative disc disease with posterior spondylosis. There is disc osteophy te complex resulting in compression of the thecal sac and suspected canal stenosis. Moderate right an d mild left neural foraminal encroachment noted with uncovertebral joint hypertrophy. Suspect central disc protrusion or bulge capped by spur. At C5-C6 there is severe degenerative disc disease with uncovertebral joint hypertrophy and posterior spondylosis. Mild effacement of thecal sac. Moderate left and mild right neural foraminal encroachme nt. Could not exclude mild central canal stenosis. At C6-C7 is no disc herniation or canal stenosis. No foraminal encroachment. C7-T1 there is no disc herniation or canal stenosis. No foraminal encroachment. Suggestion of cardiac leads. Nodular density along the right apex measuring 6 mm too small to charact erize. IMPRESSION: 1. Multilevel degenerative disc disease with severe changes at C4-5 and C5-C6. Suspect canal stenosis . 2. Right apical subpleural nodule. Measures 7 mm. 3. Multilevel foraminal encroachment secondary to hypertrophic spondylosis.
== END | disposition home or self-care (01) ==
LOC: RADCTMAIN 17:10
PROVIDERS: ATTEND Physical Medicine & Rehabilitation
DX: M50.322 Other cervical disc degeneration at C5-C6 level (principal); M99.71 Connective tissue and disc stenosis of intervertebral foramina of cervical region
CPT/HCPCS: 72125

== ENCOUNTER → 2020-11-06 | Outpatient (CLI) | payer MEDICARE, OTHER ==
[2020-11-06 14:38] LABS: Basophils # (A) 0.03 X 10*3/uL (0.00-0.10); Basophils % (A) 0.4 %; Eosinophils # (A) 0.12 X 10*3/uL (0.04-0.35); Eosinophils % (A) 1.8 %; HCT 39.4 % (37.2-46.3); HGB 13.2 g/dL (12.0-15.0); Lymphocytes # (A) 1.61 X 10*3/uL (0.90-5.00); Lymphocytes % (A) 24.1 %; MCH 30.3 pg (27.0-32.0); MCHC 33.5 g/dL (32.0-37.0); MCV 90.4 fL (80.0-97.0); Mean Platelet Volume 10.9 fL (9.5-12.2); Monocytes # (A) 0.41 X 10*3/uL (0.20-1.00); Monocytes % (A) 6.1 %; Neutrophils # (A) 4.48 X 10*3/uL (1.80-7.70); Neutrophils % (A) 67.3 %; Platelet Count 216 X 10*3/uL (140-440); RBC 4.36 X 10*6/uL (4.10-5.20); RDW 13.8 % (11.5-14.5); WBC 6.67 X 10*3/uL (4.50-10.00)
[2020-11-06 14:39] LABS: % Iron Saturation 50.19 (12.00-45.00); African American GFR (CKD) 79.4 (60.0-200.0); Albumin/Globulin Ratio 1.9 (1.60-3.17); Anion Gap 7.3 mmol/L (4.00-12.00); BUN/Creat Ratio 8.89 Ratio (12.00-20.00); Carbon Dioxide 27.7 mmol/L (21.6-31.8); Chol/HDL Ratio 2.78; Globulin 2.1 g/dL (1.6-3.3); LDL Cholesterol,Calculated 60.8 mg/dL (0.0-131.0); Magnesium 1.4 mg/dL (1.5-2.4); Non-African American GFR(CKD) 68.5 (60.0-200.0); Potassium 4.3 mmol/L (3.5-5.5); Total Bilirubin 0.6 mg/dL (0.2-1.2); Total Protein 6.1 g/dL (6.2-8.2); VLDL Calculation 19.2 mg/dL (5.00-40.00)
[2020-11-06 14:47] LABS: Ferritin 84.9 ng/mL (10.0-291.0)
[2020-11-06 17:41] LABS: Erythrocyte Sedimentation Rate 6 mm/Hr (0-30)
== END | disposition home or self-care (01) ==
LOC: LABWHC1 10:08
PROVIDERS: ATTEND Internal Medicine Interventional Cardiology
DX: I50.9 Heart failure, unspecified (principal); E78.5 Hyperlipidemia, unspecified; G25.81 Restless legs syndrome; K29.70 Gastritis, unspecified, without bleeding; R10.9 Unspecified abdominal pain
CPT/HCPCS: 36415; 80053; 80061; 82150; 82550; 82607; 82728; 83540; 83550; 83690; 83735; 83880; 85025; 85652

== ENCOUNTER → 2020-11-20 | Outpatient (CLI) | payer MEDICARE, OTHER ==
--- NOTE | 2020-11-20 09:32 | CT ---
EXAMINATION TYPE: CT chest wo con DATE OF EXAM: 11/20/2020 COMPARISON: Chest CT April 19, 2019 and older CTs HISTORY: Abn Cervical CT, Lung nodules CT DLP: 396 mGycm. Automated Exposure Control for Dose Reduction was Utilized. TECHNIQUE: CT scan of the thorax is performed without IV contrast. FINDINGS: LUNGS: Mild biapical pleural/parenchymal scarring with slight right medial nodular component axial im age 4 unchanged from 2019. No suspicious new Greater than 5 mm pulmonary nodules or masses. There is stable 3 mm anterior right mid lung nodule axial image 21. No pleural effusion or pneumothorax is see n bilaterally. MEDIASTINUM: Lack of IV contrast is noted to limit evaluation for mediastinal and especially hilar ad enopathy. There are no definitive greater than 1 cm mediastinal lymph nodes. No cardiomegaly or per icardial effusion is seen. New [employer] pacemaker/defibrillator. OTHER: Enlarging posterior right hepatic dome mass now measuring 8.3 x 7.5 x 7.2 cm axial image 15 an d coronal image 40. Enlarged left axillary lymph node measures 2.3 x 1.3 cm carotid study axial image and is decreased in size from prior study, correlate clinically with prior biopsy results. IMPRESSION: 1. No new suspicious or enlarging nodules. 2. Interval enlarged heterogeneous hypodense 8.3 cm liver mass, neoplasm not excluded, further invest igation with multiphase contrast-enhanced liver protocol CT is advised.
== END | disposition home or self-care (01) ==
LOC: RADCTMAIN 08:18
PROVIDERS: ATTEND Family Medicine
DX: R91.8 Other nonspecific abnormal finding of lung field (principal)
CPT/HCPCS: 71250

== ENCOUNTER → 2020-12-14 | Outpatient (CLI) | payer MEDICARE, OTHER ==
--- NOTE | 2020-12-15 07:54 | CT ---
The EXAMINATION TYPE: CT abdomen wo/w con DATE OF EXAM: 12/14/2020 COMPARISON: None HISTORY: Liver mass, hepatomegaly. Original order was for Abdomen with, but stipulated multiphase. Co nsulted Dr. Tripathi, he advised without/arterial/pv. Confirmed order correction with Dr. Kenny. Isov ue 300/[address] DLP: 576.10 mGycm CONTRAST: CT scan of the abdomen is performed with Oral Contrast and with IV Contrast, patient injected with 10 0 mL of Isovue 300. FINDINGS: LUNG BASES-: No visible nodule. No infiltrate. LIVER/GB: There is a large solid mass in the dome of the liver which measures approximately 8.7 x 6.5 x 8.0 cm. No evidence for peripheral or internal filling to suggest hemangioma. Suspect solid mass s uch as hepatocellular carcinoma. Mass of other etiology is not excluded. No additional hepatic lesion s seen. No evidence for intrahepatic biliary ductal dilatation. Gallbladder is contracted. PANCREAS: No inflammation. No distinct mass. SPLEEN: No splenic enlargement. No lesion seen. ADRENALS: No nodule. No thickening. KIDNEYS/BLADDER: No hydronephrosis. No nephrolithiasis. Subcentimeter renal cyst midpole right kidn ey. No solid renal lesions identified. Urinary bladder grossly unremarkable. BOWEL: Normal appendix. Normal bowel caliber. No inflammation. LYMPH NODES: No greater than 1cm abdominal or pelvic lymph nodes are appreciated. AORTA: No significant abnormality. OSSEOUS STRUCTURES: No significant abnormality is seen. OTHER: No significant additional abnormality is seen. IMPRESSION: 1. There is a large solid mass in the dome of the liver which measures approximately 8.7 x 6.5 x 8.0 cm. No evidence for peripheral or internal filling to suggest hemangioma. Suspect solid mass such as hepatocellular carcinoma. Mass of other etiology is not excluded.
== END | disposition home or self-care (01) ==
LOC: RADCTMAIN 17:21
PROVIDERS: ATTEND Internal Medicine Gastroenterology
DX: R16.0 Hepatomegaly, not elsewhere classified (principal)
CPT/HCPCS: 74170; Q9967

== ENCOUNTER 2020-12-29 09:17 | Day surgery (SDC) | payer MEDICARE, OTHER ==
[2020-12-29] MEDS ORDERED: ALPRAZolam 0.5 MG TAB PO STA (09:53)
[2020-12-29 10:28] LABS: Mean Platelet Volume 8.7; Platelet Count 211 k/uL (150-450)
[2020-12-29 11:21] LABS: Prothrombin Time 10.6 sec (9.0-12.0)
[2020-12-29 11:29] VITALS: RESP 18; TEMP 98.1
[2020-12-29] MEDS ORDERED: HYDROcodone/APAP 5-325MG 1 EACH TAB PO PRN (12:23)
--- NOTE | 2020-12-29 12:24 | P.OP ---
Date of Procedure: 12/29/20 Preoperative Diagnosis: Right liver mass Postoperative Diagnosis: same Procedure(s) Performed: ULTRASOUND-GUIDED RIGHT LIVER MASS CORE BIOPSY Anesthesia: local Surgeon: Hiwot Jones Estimated Blood Loss (ml): 0 Pathology: other (3 18g CORE BIOPSIES SUBMITTED FOR HISTOPATHOLOGY) Condition: stable Disposition: same day Description of Procedure: RIGHT LIVER MASS TARGETED FOR ULTRASOUND GUIDED CORE BIOPSY. 3 18G CORES OBTAINED.
--- NOTE | 2020-12-29 13:29 | US ---
EXAMINATION TYPE: US biopsy liver DATE OF EXAM: 12/29/2020 HISTORY: Hepatomegaly. Liver mass. COMPARISON: CT abdomen pelvis 12/14/2020 ZINC PLATE GRAINER: Dr. Hiwot Jones PROCEDURE: Preliminary preprocedure ultrasound imaging demonstrates a 6.8 x 7.0 x 7.2 cm heterogenous hyperechoi c mass with hypoechoic rim. The procedure was discussed with the patient. The risks, complications, benefits, and alternatives we re discussed and any questions were answered. Informed consent was obtained. Patient was positioned left posterior oblique. Maximal barrier technique was utilized. The skin overl melodie a suitable path to the liver was localized using ultrasound, the skin was prepped and draped. Ul trasound was utilized with sterile technique. Lidocaine was used for local anesthesia. A skin albina ma de with a scalpel. Under direct ultrasound guidance, a 17-gauge introducer needle was advanced into the right liver mass, the stylet was removed, and 18-gauge core biopsy needle was advanced into the l iver mass and core biopsy obtained. The 2 core biopsy specimens were significantly fragmented and lik sharri necrotic. The introducer needle was repositioned at the inferior to the mass, and the 3rd core bi opsy specimen tissue appeared more sufficient. 3 core biopsy specimens were obtained, and submitted i n formalin for histopathology. Hemostasis was achieved. There was no immediate complication and patie nt remained in stable condition. Post procedure ultrasound imaging demonstrates expected pneumobilia status post procedure, and no sig nificant hemorrhage. IMPRESSION: Status post ultrasound-guided 18-gauge core biopsy of the right liver mass. 3 core biopsies obtained. 2 of the core biopsy specimens were significantly fragmented and likely necrotic. Pathology pending.
[2020-12-29 15:31] VITALS: BP 98/52; PULSE 52
== END 2020-12-29 15:50 | disposition home or self-care (01) ==
LOC: RADPROMAIN 09:17
PROVIDERS: ATTEND Internal Medicine Gastroenterology
DX: C7A.8 Other malignant neuroendocrine tumors (principal); F41.9 Anxiety disorder, unspecified; G47.00 Insomnia, unspecified; G47.33 Obstructive sleep apnea (adult) (pediatric); E66.9 Obesity, unspecified; Z68.24 Body mass index [BMI] 24.0-24.9, adult; H40.9 Unspecified glaucoma; I10 Essential (primary) hypertension; I25.10 Atherosclerotic heart disease of native coronary artery without angina pectoris; Z86.711 Personal history of pulmonary embolism; I50.9 Heart failure, unspecified; M19.90 Unspecified osteoarthritis, unspecified site; Z85.038 Personal history of other malignant neoplasm of large intestine; E78.5 Hyperlipidemia, unspecified; Z79.01 Long term (current) use of anticoagulants; Z79.899 Other long term (current) drug therapy
CPT/HCPCS: 36415; 47000; 76942; 85049; 85610; 88307; 88341; 88342

== ENCOUNTER → 2021-01-12 | Day surgery (SDC) | payer MEDICARE, OTHER ==
[2021-01-10 10:08] VITALS: BMI 21.9
[~2021-01-12] MED LIST changes: +LIDOCAINE 1% (10MG/ML) FOR IV START INTRADERMA PRN; +LIDOCAINE 1% INJ 10MG/ML (20 ML MDV) ONE; +PROPOFOL 10 MG/ML 20 ML VIAL IV ONE; -SODIUM CHLORIDE 0.9% 1,000 ML IV SCH
[2021-01-12 12:30] VITALS: TEMP 98.4
--- NOTE | 2021-01-12 13:07 | P.PCN ---
Date of Procedure: 01/12/21 Procedure(s) Performed: Brief history: Patient is a pleasant 60-year-old white male who was recently diagnosed with metastatic neuroendocrine tumor when she was noted to have a liver mass that was biopsied. She was also diagnosed with rectal carcinoid in 2009 and status post resection at [facility]. Her last colonoscopy was 3 years ago was normal. She is scheduled for an upper endoscopy as well as colonoscopy to evaluate for gastric primary. Procedure performed: Esophagogastroduodenoscopy Colonoscopy Preoperative diagnosis: Newly diagnosed metastatic neuroendocrine tumor of the liver Anesthesia: MAC Procedure: After informed consent was obtained from the patient was brought into the endoscopy unit and IV sedation was administered by anesthesia under continuous monitoring. Initially upper endoscopy was done. The Olympus GF 160 video endoscope was inserted inserted into the mouth and esophagus intubated without any difficulty and was gradually advanced into the stomach and duodenum and carefully examined. The bulb and second part of the duodenum appeared normal. The scope was then withdrawn into the stomach adequately insufflated with air and upon careful examination the antrum and body, cardia and fundus appeared normal. The scope was then withdrawn into the esophagus. The GE junction was located at 40 cm to the incisors. It appeared regular with no erythema erosions or ulcerations. Rest of the esophagus appeared normal. Patient tolerated the procedure well. At this time the patient continued to remain sedation. Initial digital rectal examination was normal. Olympus CF 160 video colonoscope was then inserted into the rectum and gradually advanced to the cecum without any difficulty. Careful examination was performed as the scope was gradually being withdrawn. The prep was excellent. The cecum, ascending colon, transverse colon, descending colon, sigmoid colon and rectum appeared normal. Retroflexion was performed in the rectum and no lesions were noted. Patient tolerated the procedure well. Impression: 1. upper endoscopy revealed mild gastritis. 2. colonoscopy was within normal limits with no evidence of colitis or colorectal neoplasia Recommendations: Findings of this examination were discussed with the patient as well as her fam angel. She was advised to follow with the biopsy results. She will follow with Dr. Kassi suarez.
[2021-01-12 13:24] VITALS: RESP 17
[2021-01-12 13:54] VITALS: BP 110/59; PULSE 70
== END ==
LOC: ORWHC2ENDO 12:05
PROVIDERS: ATTEND Internal Medicine Gastroenterology
DX: K29.70 Gastritis, unspecified, without bleeding (principal); C78.7 Secondary malignant neoplasm of liver and intrahepatic bile duct; C7A.8 Other malignant neuroendocrine tumors; I25.10 Atherosclerotic heart disease of native coronary artery without angina pectoris; I50.9 Heart failure, unspecified; E78.5 Hyperlipidemia, unspecified; G47.33 Obstructive sleep apnea (adult) (pediatric); K21.9 Gastro-esophageal reflux disease without esophagitis; F41.9 Anxiety disorder, unspecified; Z79.01 Long term (current) use of anticoagulants
CPT/HCPCS: 45378; 43235; J2001; J2704

== ENCOUNTER → 2021-04-30 | Outpatient (CLI) | payer MEDICARE, OTHER ==
[2021-04-30 16:49] LABS: Anisocytosis Slight; Basophils # (A) 0.1 k/uL (0-0.2); Basophils % (A) 0 %; Eosinophils # (A) 0.1 k/uL (0-0.7); Eosinophils % (A) 1 %; HCT 47.1 % (34.0-46.0); HGB 15.6 gm/dL (11.4-16.0); Lymphocytes % (A) 22 %; MCH 33.6 pg (25.0-35.0); MCHC 33.2 g/dL (31.0-37.0); MCV 101.2 fL (80.0-100.0); Macrocytosis Moderate; Monocytes # (A) 0.9 k/uL (0-1.0); Monocytes % (A) 7 %; Neutrophils # (A) 9.3 k/uL (1.3-7.7); Neutrophils % (A) 69 %; Platelet Count 204 k/uL (150-450); RBC 4.65 m/uL (3.80-5.40); RDW 18.3 % (11.5-15.5); WBC 13.5 k/uL (3.8-10.6)
[2021-04-30 17:07] LABS: Albumin 4.7 g/dL (3.5-5.0); Potassium 4.8 mmol/L (3.5-5.1); Total Bilirubin 0.8 mg/dL (0.2-1.3); Total Protein 7.8 g/dL (6.3-8.2)
--- NOTE | 2021-04-30 18:02 | CT ---
EXAMINATION TYPE: CT angio chest DATE OF EXAM: 04/30/2021 COMPARISON: 04/19/2019 HISTORY: SOB CT DLP: 416 mGycm Automated exposure control for dose reduction was used. CONTRAST: Performed with IV Contrast, patient injected with 60cc mL of Isovue 370. There are 3-D post processed images. Heart appears normal. There is no pericardial effusion. There is no pleural effusion. The lungs are c lear of consolidation. There is no evidence of a pulmonary mass. There is minimal reticular density a t the lung apices consistent with scarring. There is no mediastinal adenopathy. There are no hilar masses. There is normal contrast opacification of the pulmonary arteries. There are no filling defects. Thoracic aorta is atheromatous. There is no aneurysm or dissection. Thoracic spine is intact. There is no compression fracture. There is degener ative spurring in the mid thoracic spine. Sternum is intact. IMPRESSION: No evidence of pulmonary embolism. There is clearing of the mild atelectasis at the posterior lung fi elds compared to old exam. No suspicious pulmonary mass.
== END | disposition home or self-care (01) ==
LOC: RADCTMAIN 15:23
PROVIDERS: ATTEND Family Medicine
DX: R06.02 Shortness of breath (principal)
CPT/HCPCS: 83880; 80053; 85025; 87040; 71275; 36415; Q9967

== ENCOUNTER 2022-03-05 12:26 | Observation (INO) | payer MEDICARE, OTHER ==
--- NOTE | 2022-03-05 12:37 | ED ---
SOB HPI - General Chief Complaint: Shortness of Breath Stated Complaint: SOB,[place] Time Seen by Provider: 03/05/22 12:30 Source: patient, EMS Mode of arrival: EMS Limitations: no limitations - History of Present Illness Initial Comments: 61-year-old female with past history of chf, mitral valve prolapse, PE on Eliquis, rectal cancer with liver metastasis who presents to the emergency department for shortness of breath. States that she's been short of breath for the past 3 weeks. She was evaluated at [facility] and they told her that she had anxiety. She followed up with her primary care doctor who checked a BNP and they told her it was 300. She reports been taking her Eliquis as directed. No calf pain or swelling. Denies fevers, chills or cough. Upon EMS arrival to her house today they found her at 89%. She denies previous pulmonary issues. Does not usea nebulizer or inhaler. No oxygen use. She denies coronary disease. No other alleviating, precipitating or modifying factors - Related Data Home Medications Medication Instructions Recorded Confirmed Rivaroxaban [Xarelto] 20 mg PO DAILY 12/14/15 03/05/22 Timolol 0.5% Ophth Soln [Timoptic 1 drop BOTH EYES BID 12/14/15 03/05/22 0.5% Ophth Soln] Zolpidem [Ambien] 10 mg PO HS 12/14/15 03/05/22 traZODone HCL [Desyrel] 100 mg PO HS 12/14/15 03/05/22 Atorvastatin [Lipitor] 40 mg PO DAILY 05/21/17 03/05/22 ALPRAZolam [Xanax] 0.25 mg PO BID PRN 03/05/22 03/05/22 Acyclovir [Zovirax] 1 applic TOPICAL Q3H PRN 03/05/22 03/05/22 Latanoprost/Pf [Latanoprost 0.005% 1 drop BOTH EYES HS 03/05/22 03/05/22 Eye Drop] Nitroglycerin Sl Tabs [Nitrostat] 0.4 mg SL Q5M PRN 03/05/22 03/05/22 Omeprazole 40 mg PO DAILY 03/05/22 03/05/22 Ondansetron [Zofran] 4 mg PO Q6H PRN 03/05/22 03/05/22 Sennosides/Docusate Sodium [Senna 2 tab PO HS PRN 03/05/22 03/05/22 Plus 8.6-50 mg Tablet] Sertraline [Zoloft] 50 mg PO DAILY 03/05/22 03/05/22 dronabinoL [Marinol] 5 mg PO AC-BID 03/05/22 03/05/22 traMADol HCl [Ultram] 50 - 100 mg PO QID PRN 03/05/22 03/05/22 Previous Rx's Medication Instructions Recorded Metoprolol Succinate (ER) [Toprol 25 mg PO DAILY #0 03/09/22 XL] Metoprolol Succinate (ER) [Toprol 25 mg PO DAILY 30 Days #30 tab 03/09/22 XL] Allergies Allergy/AdvReac Type Severity Reaction Status Date / Time No Known Allergies Allergy Verified 03/05/22 15:50 Review of Systems ROS Statement: Those systems with pertinent positive or pertinent negative responses have been documented in the HPI. ROS Other: All systems not noted in ROS Statement are negative. Past Medical History Past Medical History: Coronary Artery Disease (CAD), Cancer, Deep Vein Thrombosis (DVT), Eye Disorder, GERD/Reflux, Hyperlipidemia, Hypertension, Pneumonia, Pulmonary Embolus (PE), Sleep Apnea/CPAP/BIPAP Additional Past Medical History / Comment(s): Pulmonary Embolism, HX 2 clots inferior vena cava, colo/rectal cancer-surgically removed 2008 est, back pain from arthritis, R eye blindness, glaucoma bilaterally; uses CPAP. GLAUCOMA ,RAYNAUD'S. SEE DR HILL'S. HISTORY AND PHYSICAL FOR CARDIAC HISTORY , HISTORY OF RECENT LEAKY MITRAL VALVE", liver mass History of Any Multi-Drug Resistant Organisms: None Reported Past Surgical History: AICD, Bowel Resection, Heart Catheterization, Hysterectomy, Orthopedic Surgery, Tubal Ligation Additional Past Surgical History / Comment(s): 9" removal of bowel cancer, D&C, venous ablation of L leg varicosity, cyst removed from back, colonoscopy, cervical surgery. Justo wrist sx, Neck fusion, RT KNEE MENISCUS SURGERY . dental extraction Past Anesthesia/Blood Transfusion Reactions: Postoperative Nausea & Vomiting (PONV) Additional Past Anesthesia/Blood Transfusion Reaction / Comment(s): PONV one time long ago; Type of Cardiac Device: AICD Device Placement Date:: 04/16/20 Past Psychological History: Anxiety Smoking Status: Former smoker - Past Family History Father Family Medical History: Cancer, Deep Vein Thrombosis (DVT) Additional Family Medical History / Comment(s): Lung cancer. Father of a massive CVA Mother Family Medical History: Diabetes Mellitus, Hyperlipidemia, Hypertension Additional Family Medical History / Comment(s): Mother at age 82 yrs. Sister(s) Family Medical History: Cancer Additional Family Medical History / Comment(s): skin General Exam Limitations: no limitations General appearance: anxious Head exam: Present: atraumatic, normocephalic, normal inspection Eye exam: Present: normal appearance, PERRL, EOMI. Absent: scleral icterus, conjunctival injection, periorbital swelling ENT exam: Present: normal exam, mucous membranes moist Neck exam: Present: normal inspection. Absent: tenderness, meningismus, lymphadenopathy Respiratory exam: Present: normal lung sounds bilaterally, other (tachypnia). Absent: respiratory distress, wheezes, rales, rhonchi, stridor Cardiovascular Exam: Present: regular rate, normal rhythm, normal heart sounds. Absent: systolic murmur, diastolic murmur, rubs, gallop, clicks GI/Abdominal exam: Present: soft, normal bowel sounds. Absent: distended, tenderness, guarding, rebound, rigid Extremities exam: Present: normal inspection, full ROM, normal capillary refill. Absent: tenderness, pedal edema, joint swelling, calf tenderness Back exam: Present: normal inspection Neurological exam: Present: alert, oriented X3, CN II-XII intact Psychiatric exam: Present: normal affect, normal mood Skin exam: Present: warm, dry, intact, normal color. Absent: rash Course Vital Signs 03/05/22 03/05/22 03/05/22 12:27 15:15 15:29 Temperature 97.4 F L Pulse Rate 72 71 77 Respiratory 18 14 Rate Blood Pressure 102/65 O2 Sat by Pulse 100 Oximetry 03/05/22 03/05/22 16:39 17:35 Temperature Pulse Rate 78 75 Respiratory 18 18 Rate Blood Pressure 106/64 104/54 O2 Sat by Pulse 100 98 Oximetry Medical Decision Making - Medical Decision Making Upon arrival patient was placed into room 3. A thorough history and physical exam was performed. Patient does saturate 100% on 2 L. IV is established laboratory studies were conducted. D-dimer is elevated at 2.48. She is sent for CT of the chest which demonstrates no PE. No signs of congestive heart failure. CT of the abdomen demonstrates postop changes consistent with seroma. Patient did have previous CT imaging which demonstrated this. Currently awaiting transfer results. Due to the patient's hypoxia and this is her second evaluation for similar complaint a did recommend admission for neurology consu ltation. Patient was agreeable to this. Sound is paged at this time. - Lab Data Result diagrams: 03/08/22 07:00 03/08/22 07:00 Lab Results 03/05/22 03/05/22 03/05/22 Range/Units 12:40 12:40 12:40 WBC 11.1 H (3.8-10.6) k/uL RBC 4.80 (3.80-5.40) m/uL Hgb 12.8 (11.4-16.0) gm/dL Hct 40.2 (34.0-46.0) % MCV 83.9 (80.0-100.0) fL MCH 26.7 (25.0-35.0) pg MCHC 31.9 (31.0-37.0) g/dL RDW 16.3 H (11.5-15.5) % Plt Count 375 (150-450) k/uL MPV 7.7 Neutrophils % 83 % Lymphocytes % 11 % Monocytes % 4 % Eosinophils % 1 % Basophils % 0 % Neutrophils # 9.3 H (1.3-7.7) k/uL Lymphocytes # 1.2 (1.0-4.8) k/uL Monocytes # 0.5 (0-1.0) k/uL Eosinophils # 0.1 (0-0.7) k/uL Basophils # 0.0 (0-0.2) k/uL Anisocytosis Slight PT 14.7 H (9.0-12.0) sec INR 1.4 H (<1.2) APTT 29.6 (22.0-30.0) sec D-Dimer 2.48 H (<0.60) mg/L FEU Sodium 133 L (137-145) mmol/L Potassium 4.7 (3.5-5.1) mmol/L Chloride 96 L (98-107) mmol/L Carbon Dioxide 21 L (22-30) mmol/L Anion Gap 16 mmol/L BUN 7 (7-17) mg/dL Creatinine 0.70 (0.52-1.04) mg/dL Est GFR (CKD-EPI)AfAm >90 (>60 ml/min/1.73 sqM) Est GFR (CKD-EPI)NonAf >90 (>60 ml/min/1.73 sqM) Glucose 134 H (74-99) mg/dL Lactic Ac Sepsis Rflx Plasma Lactic Acid Nirmal (0.7-2.0) mmol/L Calcium 9.3 (8.4-10.2) mg/dL Total Bilirubin 0.9 (0.2-1.3) mg/dL AST 35 (14-36) U/L ALT 18 (4-34) U/L Alkaline Phosphatase 227 H (38-126) U/L Troponin I (0.000-0.034) ng/mL NT-Pro-B Natriuret Pep pg/mL Total Protein 7.4 (6.3-8.2) g/dL Albumin 3.7 (3.5-5.0) g/dL Coronavirus (PCR) (Not Detectd) Influenza Type A RNA (Not Detectd) Influenza Type B (PCR) (Not Detectd) 03/05/22 03/05/22 03/05/22 Range/Units 12:40 12:40 12:40 WBC (3.8-10.6) k/uL RBC (3.80-5.40) m/uL Hgb (11.4-16.0) gm/dL Hct (34.0-46.0) % MCV (80.0-100.0) fL MCH (25.0-35.0) pg MCHC (31.0-37.0) g/dL RDW (11.5-15.5) % Plt Count (150-450) k/uL MPV Neutrophils % % Lymphocytes % % Monocytes % % Eosinophils % % Basophils % % Neutrophils # (1.3-7.7) k/uL Lymphocytes # (1.0-4.8) k/uL Monocytes # (0-1.0) k/uL Eosinophils # (0-0.7) k/uL Basophils # (0-0.2) k/uL Anisocytosis PT (9.0-12.0) sec INR (<1.2) APTT (22.0-30.0) sec D-Dimer (<0.60) mg/L FEU Sodium (137-145) mmol/L Potassium (3.5-5.1) mmol/L Chloride (98-107) mmol/L Carbon Dioxide (22-30) mmol/L Anion Gap mmol/L BUN (7-17) mg/dL Creatinine (0.52-1.04) mg/dL Est GFR (CKD-EPI)AfAm (>60 ml/min/1.73 sqM) Est GFR (CKD-EPI)NonAf (>60 ml/min/1.73 sqM) Glucose (74-99) mg/dL Lactic Ac Sepsis Rflx Plasma Lactic Acid Nirmal 2.6 H* (0.7-2.0) mmol/L Calcium (8.4-10.2) mg/dL Total Bilirubin (0.2-1.3) mg/dL AST (14-36) U/L ALT (4-34) U/L Alkaline Phosphatase (38-126) U/L Troponin I <0.012 (0.000-0.034) ng/mL NT-Pro-B Natriuret Pep 291 pg/mL Total Protein (6.3-8.2) g/dL Albumin (3.5-5.0) g/dL Coronavirus (PCR) (Not Detectd) Influenza Type A RNA (Not Detectd) Influenza Type B (PCR) (Not Detectd) 03/05/22 03/05/22 03/05/22 Range/Units 12:53 12:53 13:12 WBC (3.8-10.6) k/uL RBC (3.80-5.40) m/uL Hgb (11.4-16.0) gm/dL Hct (34.0-46.0) % MCV (80.0-100.0) fL MCH (25.0-35.0) pg MCHC (31.0-37.0) g/dL RDW (11.5-15.5) % Plt Count (150-450) k/uL MPV Neutrophils % % Lymphocytes % % Monocytes % % Eosinophils % % Basophils % % Neutrophils # (1.3-7.7) k/uL Lymphocytes # (1.0-4.8) k/uL Monocytes # (0-1.0) k/uL Eosinophils # (0-0.7) k/uL Basophils # (0-0.2) k/uL Anisocytosis PT (9.0-12.0) sec INR (<1.2) APTT (22.0-30.0) sec D-Dimer (<0.60) mg/L FEU Sodium (137-145) mmol/L Potassium (3.5-5.1) mmol/L Chloride (98-107) mmol/L Carbon Dioxide (22-30) mmol/L Anion Gap mmol/L BUN (7-17) mg/dL Creatinine (0.52-1.04) mg/dL Est GFR (CKD-EPI)AfAm (>60 ml/min/1.73 sqM) Est GFR (CKD-EPI)NonAf (>60 ml/min/1.73 sqM) Glucose (74-99) mg/dL Lactic Ac Sepsis Rflx Y Plasma Lactic Acid Nrimal (0.7-2.0) mmol/L Calcium (8.4-10.2) mg/dL Total Bilirubin (0.2-1.3) mg/dL AST (14-36) U/L ALT (4-34) U/L Alkaline Phosphatase (38-126) U/L Troponin I (0.000-0.034) ng/mL NT-Pro-B Natriuret Pep pg/mL Total Protein (6.3-8.2) g/dL Albumin (3.5-5.0) g/dL Coronavirus (PCR) Not Detected (Not Detectd) Influenza Type A RNA Not Detected (Not Detectd) Influenza Type B (PCR) Not Detected (Not Detectd) - EKG Data EKG Comments: EKG demonstrates sinus rhythm with a rate of 66. MN interval 151. QRS 93. QTC of 423. No acute ST segment elevations or depressions Disposition Clinical Impression: Hypoxia Disposition: ADMITTED IP TO THIS HOSP Condition: Fair Is patient prescribed a controlled substance at d/c from ED?: No Time of Disposition: 15:02 Decision to Admit Reason: Admit from EC Decision Date: 03/05/22 Decision Time: 15:02
[2022-03-05 12:50] LABS: Anisocytosis Slight; Basophils % (A) 0 %; Eosinophils # (A) 0.1 k/uL (0-0.7); Eosinophils % (A) 1 %; HCT 40.2 % (34.0-46.0); HGB 12.8 gm/dL (11.4-16.0); Lymphocytes # (A) 1.2 k/uL (1.0-4.8); Lymphocytes % (A) 11 %; MCH 26.7 pg (25.0-35.0); MCHC 31.9 g/dL (31.0-37.0); MCV 83.9 fL (80.0-100.0); Mean Platelet Volume 7.7; Monocytes # (A) 0.5 k/uL (0-1.0); Monocytes % (A) 4 %; Neutrophils # (A) 9.3 k/uL (1.3-7.7); Neutrophils % (A) 83 %; Platelet Count 375 k/uL (150-450); RDW 16.3 % (11.5-15.5); WBC 11.1 k/uL (3.8-10.6)
[2022-03-05 13:06] LABS: INR 1.4 (<1.2); Partial Thromboplastin Time 29.6 sec (22.0-30.0); Prothrombin Time 14.7 sec (9.0-12.0)
[2022-03-05 13:07] LABS: ALT 18 U/L (4-34); AST 35 U/L (14-36); African American GFR (CKD) >90 (>60 ml/min/1.73 sqM); Albumin 3.7 g/dL (3.5-5.0); Alkaline Phosphatase 227 U/L (38-126); Anion Gap 16 mmol/L; Blood Urea Nitrogen 7 mg/dL (7-17); Calcium 9.3 mg/dL (8.4-10.2); Carbon Dioxide 21 mmol/L (22-30); Chloride 96 mmol/L (98-107); Glucose 134 mg/dL (74-99); Non-African American GFR(CKD) >90 (>60 ml/min/1.73 sqM); Potassium 4.7 mmol/L (3.5-5.1); Sodium 133 mmol/L (137-145); Total Bilirubin 0.9 mg/dL (0.2-1.3); Total Protein 7.4 g/dL (6.3-8.2)
[2022-03-05] MEDS ORDERED: LORazepam 1 MG TAB PO STA (14:34)
--- NOTE | 2022-03-05 14:39 | CT ---
EXAMINATION TYPE: CT chest angio for PE CT DLP: Combined DLP 760.3 mGycm, Automated exposure control for dose reduction was used. DATE OF EXAM: 03/05/2022 2:28 PM COMPARISON: CTA chest 04/30/2021. CLINICAL INDICATION:Female, 61 years old with history of sob; Liver cancer, possible PE TECHNIQUE/CONTRAST: CTA scan of the thorax is performed with IV Contrast, patient injected with 60 mL of Isovue 370, pulm onary embolism protocol. MIP images are created and reviewed. FINDINGS: Pulmonary Artery: There is no evidence for a filling defect within the pulmonary vasculature to sugge st acute pulmonary embolism. The pulmonary artery is of normal size. Lungs/Pleura: Biapical pleural-parenchymal scarring. No focal consolidation, pneumothorax, pleural ef fusion. Stable 3 mm right lower lobe pulmonary nodule (series 406, image 100). Stable right middle lo be 2 mm pulmonary nodule (series 406, image 86). No new or enlarging pulmonary nodules. Airway: Large airways are patent. Heart: Heart is within normal limits for size. No pericardial effusion. Vasculature: No evidence of aortic aneurysm. Atherosclerotic calcification of the aorta. Left chest w all cardiac conduction device identified. Mediastinum: No evidence of adenopathy. Musculoskeletal: No acute osseous abnormalities. No aggressive osseous lesion. Soft Tissues: Unremarkable. Lower neck: No significant findings. Upper Abdomen: Please refer to concurrent CT abdomen and pelvis findings. IMPRESSION: 1. No evidence of pulmonary embolism. 2. Stable pulmonary nodules from prior examination. No new or enlarging pulmonary nodules.
--- NOTE | 2022-03-05 14:50 | CT ---
EXAMINATION TYPE: CT abdomen pelvis w con CT DLP: COMBINED DLP 760.3 mGycm, Automated exposure control for dose reduction was used. DATE OF EXAM: 03/05/2022 2:28 PM COMPARISON: CT abdomen pelvis most recent from 12/14/2020. CLINICAL INDICATION:Female, 61 years old with history of liver cancer; Liver cancer, possible PE TECHNIQUE: Standard CT of the abdomen and pelvis following the administration of 100 cc of Isovue 3 00 IV contrast material. Coronal and sagittal reformats were performed. FINDINGS: LOWER CHEST: Please see dedicated CTA chest for findings ABDOMEN LIVER: Postsurgical changes of the right hepatic lobe with multiple surgical clips identified. There is a thick-walled fluid collection at the surgical site measuring 5.5 x 4.8 cm without gas. GALLBLADDER AND BILE DUCTS: Gallbladder is not visualized and may be surgically absent. No biliary du ct dilatation. PANCREAS: Unremarkable. SPLEEN: Unremarkable. ADRENAL GLANDS: Unremarkable. KIDNEYS AND URETERS: No evidence of hydronephrosis or renal calculus. Kidneys enhance symmetrically. Stable right renal cyst. PELVIS BLADDER: Incompletely distended but grossly unremarkable. REPRODUCTIVE: The uterus is surgically absent. No suspicious adnexal mass. ABDOMEN & PELVIS STOMACH AND BOWEL: Stomach and duodenum are unremarkable. No focal wall thickening. The appendix is n ot definitely visualized however there is no significant inflammatory changes within the right lower quadrant. Anastomosis demonstrated at the rectum. No evidence of bowel obstruction. PERITONEUM: No evidence of pneumoperitoneum or free fluid. VASCULATURE: Mild atherosclerotic calcifications are present throughout the abdominal aorta and its b ranches. No evidence of aortic aneurysm. MUSCULOSKELETAL: No acute osseous abnormalities. No aggressive osseous lesions. Degenerative changes of the lower lumbar spine with disc space narrowing, endplate sclerosis, and osteophytosis. This is m ost pronounced at L4-L5 and L5-S1. LYMPH NODES: No gross evidence for lymphadenopathy. SOFT TISSUE/ABDOMINAL WALL: Postsurgical changes of the anterior abdominal wall. Small fat filled umb ilical hernia. IMPRESSION: Postsurgical changes of the right hepatic lobe with 5.5 cm thick-walled fluid collection at the resec tion site. This may represent an abscess versus seroma in the appropriate clinical setting. Correlati on with recent imaging is recommended.
[2022-03-05] MEDS ORDERED: methylPREDNISolone SOD SUCCI 125 MG/2 ML VIAL IV STA (15:02)
[2022-03-05] MEDS ORDERED: IPRATROPIUM-ALBUTEROL 3 ML NEB INHALATION STA (15:02)
[2022-03-05] MEDS ORDERED: NALOXONE 0.4 MG/ML 1 ML VIAL IV PRN (15:02)
--- NOTE | 2022-03-05 16:43 | P.CNPUL ---
History of Present Illness Consult date: 03/05/22 Reason for consult: hypoxemia History of present illness: 61-year-old female patient admitted to the hospital because of hypoxemia. The patient was found to have a pulse ox of 89% after home as found by EMS. She is currently on 2 L and her pulse is up to 99-100%. She was admitted to the hospital for further investigation. 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 . 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 I believe the patient underwent a surgical hepatectomy. She has obstructive sleep apnea and she utilizes CPAP therapy. She has also history of congestion heart failure, systolic in nature with an ejection fraction being port around 20% and a previous RAJAT showed severe mitral regurgitation and the patient was already given an AICD. The patient also has history of pulmonary embolism and and she is on long-term and correlation with Xarelto. Other comorbid conditions include hypertension, hyperlipidemia, COPD the patient is an ex-smoker. During this current admission, the patient was found to have a white cell count of 11.1 with a hemoglobin 12.8 and a platelet count of 375. Coagulation profile showed an INR of 1.4 with a PT of 14.7 and a d-dimer of 2.48. The BUN is at 7 with a creatinine of 0.7 and the sodium level is at 133. Lactic acid level was at 2.6. Bilirubin was 0.9. Liver function test shows an alkaline phosphatase of 227, ALT and AST are both within normal limits. Total protein was 7.4 with an albumin of 3.1. ProBNP level is 291. The CTA of the chest showed no definite pulmonary embolism. The patient had biapical pleural parenchymal scarring. No focal consolidation. No pleural effusion. 3 mm right lower lobe pulmonary nodule and a 2 mm right middle lobe pulmonary nodules that have been stable without any interval change. The CAT scan of the abdomen and pelvis s howed postsurgical changes in the right hepatic lobe with a 5.5 cm thickness wall fluid collection at the resection site. This may be a seroma. Review of Systems All systems: negative Constitutional: Reports as per HPI Eyes: denies as per HPI, denies blurred vision, denies bulging eye, denies decreased vision, denies diplopia, denies discharge, denies dry eye, denies irritation, denies itching, denies pain, denies photophobia, denies loss of peripheral vision, denies loss of vision, denies tunnel vision/blind spots Ears: deny: decreased hearing, ear discharge, earache, tinnitus Ears, nose, mouth and throat: Reports as per HPI Breasts: absent: as per HPI, change in shape, gynecomastia, masses, nipple discharge, pain, skin changes, swelling Cardiovascular: Reports as per HPI Respiratory: Reports as per HPI Gastrointestinal: Reports as per HPI Genitourinary: Reports as per HPI Menstruation: Reports as per HPI Musculoskeletal: Reports as per HPI Musculoskeletal: absent: ankle pain, ankle stiffness, ankle swelling Integumentary: Reports as per HPI Neurological: Reports as per HPI Psychiatric: Reports as per HPI Endocrine: Reports as per HPI Hematologic/Lymphatic: Reports as per HPI Allergic/Immunologic: Reports as per HPI Past Medical History Past Medical History: Coronary Artery Disease (CAD), Cancer, Deep Vein Thrombosis (DVT), Eye Disorder, GERD/Reflux, Hyperlipidemia, Hypertension, Pneumonia, Pulmonary Embolus (PE), Sleep Apnea/CPAP/BIPAP Additional Past Medical History / Comment(s): Pulmonary Embolism, HX 2 clots inferior vena cava, colo/rectal cancer-surgically removed 2008 est, back pain from arthritis, R eye blindness, glaucoma bilaterally; uses CPAP. GLAUCOMA ,RAYNAUD'S. SEE DR HILL'S. HISTORY AND PHYSICAL FOR CARDIAC HISTORY , HISTORY OF RECENT LEAKY MITRAL VALVE", liver mass History of Any Multi-Drug Resistant Organisms: None Reported Past Surgical History: AICD, Bowel Resection, Heart Catheterization, Hysterectomy, Orthopedic Surgery, Tubal Ligation Additional Past Surgical History / Comment(s): 9" removal of bowel cancer, D&C, venous ablation of L leg varicosity, cyst removed from back, colonoscopy, cervical surgery. Justo wrist sx, Neck fusion, RT KNEE MENISCUS SURGERY . dental extraction Past Anesthesia/Blood Transfusion Reactions: Postoperative Nausea & Vomiting (PONV) Additional Past Anesthesia/Blood Transfusion Reaction / Comment(s): PONV one time long ago; Type of Cardiac Device: AICD Device Placement Date:: 04/16/20 Past Psychological History: Anxiety Smoking Status: Former smoker - Past Family History Father Family Medical History: Cancer, Deep Vein Thrombosis (DVT) Additional Family Medical History / Comment(s): Lung cancer. Father of a massive CVA Mother Family Medical History: Diabetes Mellitus, Hyperlipidemia, Hypertension Additional Family Medical History / Comment(s): Mother at age 82 yrs. Sister(s) Family Medical History: Cancer Additional Family Medical History / Comment(s): skin Medications and Allergies Home Medications Medication Instructions Recorded Confirmed Type Rivaroxaban [Xarelto] 20 mg PO DAILY 12/14/15 03/05/22 History Timolol 0.5% Ophth Soln [Timoptic 1 drop BOTH EYES BID 12/14/15 03/05/22 History 0.5% Ophth Soln] Zolpidem [Ambien] 10 mg PO HS 12/14/15 03/05/22 History traZODone HCL [Desyrel] 100 mg PO HS 12/14/15 03/05/22 History Atorvastatin [Lipitor] 40 mg PO DAILY 05/21/17 03/05/22 History Spironolactone [Aldactone] 25 mg PO DAILY #30 tab 03/19/20 03/05/22 Rx ALPRAZolam [Xanax] 0.25 mg PO BID PRN 03/05/22 03/05/22 History Acyclovir [Zovirax] 1 applic TOPICAL Q3H PRN 03/05/22 03/05/22 History Furosemide [Lasix] 20 mg PO DAILY 03/05/22 03/05/22 History Latanoprost/Pf [Latanoprost 0.005% 1 drop BOTH EYES HS 03/05/22 03/05/22 History Eye Drop] Metoprolol Succinate (ER) [Toprol 100 mg PO DAILY 03/05/22 03/05/22 History Xl] Nitroglycerin Sl Tabs [Nitrostat] 0.4 mg SL Q5M PRN 03/05/22 03/05/22 History Omeprazole 40 mg PO DAILY 03/05/22 03/05/22 History Ondansetron [Zofran] 4 mg PO Q6H PRN 03/05/22 03/05/22 History Sennosides/Docusate Sodium [Senna 2 tab PO HS PRN 03/05/22 03/05/22 History Plus 8.6-50 mg Tablet] Sertraline [Zoloft] 50 mg PO DAILY 03/05/22 03/05/22 History dronabinoL [Marinol] 5 mg PO AC-BID 03/05/22 03/05/22 History lisinopriL [Prinivil] 10 mg PO DAILY 03/05/22 03/05/22 History traMADol HCl [Ultram] 50 - 100 mg PO QID PRN 03/05/22 03/05/22 History Allergies Allergy/AdvReac Type Severity Reaction Status Date / Time No Known Allergies Allergy Verified 03/05/22 15:50 Physical Exam Vitals: Vital Signs Temp Pulse Resp BP Pulse Ox 03/05/22 15:29 77 03/05/22 15:15 71 14 03/05/22 12:27 97.4 F L 72 18 102/65 100 Intake and Output 03/05/22 03/05/22 03/05/22 06:59 14:59 22:59 Other: Weight 54.431 kg Calm and comfortable likely distress on 2 L of oxygen by nasal cannula Head exam was generally normal. There was no scleral icterus or corneal arcus. Mucous membranes were moist. Neck was supple and without jugular venous distension, thyromegaly, or carotid bruits. Carotids were easily palpable bilaterally. There was no adenopathy. Lungs were clear to auscultation and percussion, and with normal diaphragmatic excursion. No wheezes or rales were noted. Cardiac exam revealed the PMI to be normally situated and sized. The rhythm was regular and no extrasystoles were noted during several minutes of auscultation. The first and second heart sounds were normal and physiologic splitting of the second heart sound was noted. There were no murmurs, rubs, clicks, or gallops. The patient is a pacemaker pocket of the left anterior chest area/defibrillator Abdominal exam revealed normal bowel sounds. The abdomen was soft, non-tender, and without masses, organomegaly, or appreciable enlargement of the abdominal aorta. Examination of the extremities revealed easily palpable radial, femoral and pedal pulses. There was no cyanosis, clubbing or edema. Examination of the skin revealed no evidence of significant rashes, suspicious appearing nevi or other concerning lesions. Neurologically, the patient is awake and alert and the patient does not have any focal neurological deficit. Cranial nerves are essentially intact. Results - Laboratory Findings CBC and BMP: 03/05/22 12:40 03/05/22 12:40 PT/INR, D-dimer PT 14.7 sec (9.0-12.0) H 03/05/22 12:40 INR 1.4 (<1.2) H 03/05/22 12:40 D-Dimer 2.48 mg/L FEU (<0.60) H 03/05/22 12:40 Abnormal lab findings: Abnormal Labs 03/05/22 03/05/22 03/05/22 12:40 12:40 12:40 WBC 11.1 H RDW 16.3 H Neutrophils # 9.3 H PT 14.7 H INR 1.4 H D-Dimer 2.48 H Sodium 133 L Chloride 96 L Carbon Dioxide 21 L Glucose 134 H Plasma Lactic Acid Nirmal Alkaline Phosphatase 227 H 03/05/22 12:40 WBC RDW Neutrophils # PT INR D-Dimer Sodium Chloride Carbon Dioxide Glucose Plasma Lactic Acid Nirmal 2.6 H* Alkaline Phosphatase - Diagnostic Findings CT scan - chest: image reviewed Assessment and Plan Plan: Hypoxemia/Shortness of breath under investigation, likely subacute and chronic , currently on 2 L of oxygen by nasal cannula. CT angiogram of the chest shows no acute abnormalities. Nonspecific or nodules without any other acute abnormalities explaining the patient shortness of breath or hypoxemia Chronic systolic heart failure with an ejection fraction is impaired at around 20-30% and the patient has biventricular AICD in place Valvular heart disease with severe mitral regurgitation, no signs of any decompensated heart failure at this point in time in the proBNP level was nonelevated History of rectal carcinoid tumor postresection 2009. The patient developed liver metastases in 2020 and the patient underwent systemic chemotherapy and following that she had a surgical hepatectomy. This was done at [facility] the patient seems to be in remission. Unexplained weight loss and diminished oral intake and very poor appetite Previous history of pulmonary embolism, currently on Xarelto Right eye blindness/glucoma Obstructive sleep apnea not utilizing CPAP therapy Hypertension Hyperlipidemia Previous history of DVT still maintained on anticoagulation Coronary artery disease COPD maintained on renal and abdominal patient basis Chronic anxiety and depression Osteoarthritis multiple joints Chronic insomnia Plan No acute pulmonary cause for the patient shortness of breath. The patient have underlying COPD which is essentially chronic and I do not think this may be partly contributing to the patient shortness of breath but is not limited only to lung disease. Her cardiac condition seems to be also stable and the patient has well compensated heart failure/valvular heart disease. She is quite de bilitated. She went to systemic chemotherapy and following that she underwent a partial liver resection for removal of a carcinoid tumor. Since then, the patient has become progressively more weak and she has diminished appetite and weight loss. Rule out occult metastases with neuroendocrine/carcinoid tumor. My overall opinion that the patient is quite debilitated and deconditioned an occult malignancy needs to be again worked up. I think the pulmonary status and cardiac status is stable for now. Continue Xarelto. Continue home medications. Continue diuretics. Not much to be added some the pulmonary standpoint. Evaluate for home O2 at the time of discharge.
[2022-03-05] MEDS ORDERED: PROCHLORPERAZINE INJ 10 MG/2 ML VIAL IVP PRN ×2 (17:21→17:22)
[2022-03-05] MEDS ORDERED: ALPRAZolam 0.25 MG TAB PO PRN (17:22)
[2022-03-05] MEDS ORDERED: ACETAMINOPHEN TAB 325 MG TAB PO PRN (18:05)
[2022-03-05] MEDS ORDERED: MELATONIN 3 MG TABLET PO PRN (18:14)
[2022-03-05] MEDS ORDERED: traMADol 50 MG TAB PO PRN (18:19)
--- NOTE | 2022-03-05 18:25 | P.HPIM ---
History of Present Illness H&P Date: 03/05/22 Chief Complaint: shortness of breath Patient is a 61-year-old female with multiple medical comorbidities including systolic chf with EF < 20 % s/p AICD, colorectal cancer with liver metastases treated previously, pulmonary embolism, and significant tobacco abuse who presented to the hospital with complaints of shortness of breath. In the ER she underwent an extensive evaluation. She was satting 100% on 2 L nasal cannula, however reported that she was 89% on room air on EMS evaluation. She underwent a CTA of the chest due to elevated d-dimer. This demonstrated no evidence of pulmonary embolism but did show stable pulmonary nodules. She also underwent a CT abdomen and pelvis which showed post surgical changes in the right hepatic lobe with a 5.5 cm fluid collection at the resection site considering abscess versus seroma. Laboratory analysis was remarkable for white blood cell count 11.1, d-dimer 2.48, sodium 133, lactic acid 2.6. COVID and influenza testing were negative. The ER she was given a dose of Ativan, Solu-Medrol, and bronchodilators. She was placed in observation for unknown cause of hypoxemia. Patient seen and examined at bedside. She initially complains of nausea and vomiting when I walk in the room. She states she's been having vomiting and has been unable to tolerate any oral intake since November when she had her liver tumor resected. She has not followed up with her surgeon other than her first postop follow-up, she states she did not mention it done. She states she has mentioned it to her primary who has not done anything about it. She is concerned about having enough energy. I then asked her why she presented to the hospital as I had been told she was having difficulty with shortness of breath. She states the reason she did present to the hospital she went to see her sister today and became very short of breath and had to sit down and her sister activated EMS. Her primary concern for this hospital stay is her shortness of breath however she has multiple other concerns including her persistent nausea, vomiting, and abdominal pain since surgery. She reports that she gets winded every time she walks. She then starts to feel very weak and like she will fall, and then she becomes slightly dizzy. She denies any chest pain. She denies any palpitations. She is unable to tell me if this occurs every time she walks only with long distances, but it does occur when she goes down the stairs. She states she has not seen Dr. Beal her primary hydraulic lift driver for this. She states she last saw him 3 months ago but she is unsure what medication changes he recommended if any at that time. She den ies any wheezing or cough. She admits to sore throat, runny nose, stuffy nose, and post nanasl gtt, she has these chorinc and is miserable from them but does not take any medications for them. She is not currently getting chemotherapy but she does follow with Dr. Reyna from [facility]. She has not seen him recently and is due for follow-up in March. Pertinent positives and negatives as discussed in HPI, a complete review of systems was performed and all other systems are negative. Vital signs reviewed General: nontoxic, no distress, appears at stated age Derm: warm, dry Head: atraumatic, normocephalic, symmetric Eyes: EOMI, no lid lag, anicteric sclera, pupils equal round reactive to light ENT: Nose and ears atraumatic, no thrush, + pharyngeal erythema, + PND, no pharyngeal exudates Neck: No thyromegaly, no cervical lymphadenopathy, trachea midline, supple Mouth: no lip lesion, mucus membranes moist Cardiovascular: S1S2 reg, no murmur, positive posterior tibial pulse bilateral, no edema, capillary refill less than 2 seconds Lungs: Decreased bs bilateral, no rhonchi, no rales, no wheeze, no accessory muscle use Abdominal: soft, +tender to palpation left upper quadrant, no guarding, no appreciable organomegaly, normal bowel sounds Ext: no gross muscle atrophy, muscle strength 5 out of 5 in all 4 extremities, no contractures Neuro: CN II-XII grossly intact, light touch intact all 4 extremities, finger to nose within normal limits, Psych: Alert, oriented, appropriate affect Assessment/Plan: Hypoxia with anginal equivalent Chronic systolic CHF, EF < 20% -Trend serial troponins -Cardiology consultation -Repeat echocardiogram -Consult pulmonary - tele - AICD interrogiation - resume lisinopril, metorpolol, lasix, lipitor - start ASA lactic acid - undetermined etiology - improved without IV fluids Abdominal pain with seroma and recent liver met removal Colon/rectal CA- not on chemo intractable vomiting - consult surgery ? EGD - start PPI - pain control - outpatinet follow-up with oncologist - shreya records from [facility] Sinusitis - flonase - claritin Chronic: HTN HLD Hx DVT Colon/rectal cnacer The patient is admitted with an anticipated less than 2 midnight stay for evaluation of shortness of breath. Surrogate decision-maker: Son CODE STATUS:DNR DVT prophylaxis: Xarelto Discussed with: patient, nursing Anticipated discharge date: in 1-[address]: home A total of 75 minutes was spent on the care of this complex patient more than 50% of the time was spent in counseling and care coordination. Past Medical History Past Medical History: Coronary Artery Disease (CAD), Cancer, Heart Failure, Deep Vein Thrombosis (DVT), Eye Disorder, GERD/Reflux, Hyperlipidemia, Hypertension, Pneumonia, Pulmonary Embolus (PE), Sleep Apnea/CPAP/BIPAP Additional Past Medical History / Comment(s): Pulmonary Embolism, HX 2 clots inferior vena cava, colo/rectal cancer-surgically removed 2008 est, back pain from arthritis, R eye blindness, glaucoma bilaterally; uses CPAP. GLAUCOMA ,RAYNAUD'S. SEE DR HILL'S , liver mass History of Any Multi-Drug Resistant Organisms: None Reported Past Surgical History: AICD, Bowel Resection, Heart Catheterization, Hysterectomy, Orthopedic Surgery, Tubal Ligation Additional Past Surgical History / Comment(s): 9" removal of bowel cancer, D&C, venous ablation of L leg varicosity, cyst removed from back, colonoscopy, cervical surgery. Justo wrist sx, Neck fusion, RT KNEE MENISCUS SURGERY . dental extraction Past Anesthesia/Blood Transfusion Reactions: Postoperative Nausea & Vomiting (PONV) Additional Past Anesthesia/Blood Transfusion Reaction / Comment(s): PONV one time long ago; Type of Cardiac Device: AICD Device Placement Date:: 04/16/20 Past Psychological History: Anxiety Smoking Status: Former smoker - Past Family History Father Family Medical History: Cancer, Deep Vein Thrombosis (DVT) Additional Family Medical History / Comment(s): Lung cancer. Father of a massive CVA Mother Family Medical History: Diabetes Mellitus, Hyperlipidemia, Hypertension Additional Family Medical History / Comment(s): Mother at age 82 yrs. Sister(s) Family Medical History: Cancer Additional Family Medical History / Comment(s): skin Medications and Allergies Home Medications Medication Instructions Recorded Confirmed Type Rivaroxaban [Xarelto] 20 mg PO DAILY 12/14/15 03/05/22 History Timolol 0.5% Ophth Soln [Timoptic 1 drop BOTH EYES BID 12/14/15 03/05/22 History 0.5% Ophth Soln] Zolpidem [Ambien] 10 mg PO HS 12/14/15 03/05/22 History traZODone HCL [Desyrel] 100 mg PO HS 12/14/15 03/05/22 History Atorvastatin [Lipitor] 40 mg PO DAILY 05/21/17 03/05/22 History Spironolactone [Aldactone] 25 mg PO DAILY #30 tab 03/19/20 03/05/22 Rx ALPRAZolam [Xanax] 0.25 mg PO BID PRN 03/05/22 03/05/22 History Acyclovir [Zovirax] 1 applic TOPICAL Q3H PRN 03/05/22 03/05/22 History Furosemide [Lasix] 20 mg PO DAILY 03/05/22 03/05/22 History Latanoprost/Pf [Latanoprost 0.005% 1 drop BOTH EYES HS 03/05/22 03/05/22 History Eye Drop] Metoprolol Succinate (ER) [Toprol 100 mg PO DAILY 03/05/22 03/05/22 History Xl] Nitroglycerin Sl Tabs [Nitrostat] 0.4 mg SL Q5M PRN 03/05/22 03/05/22 History Omeprazole 40 mg PO DAILY 03/05/22 03/05/22 History Ondansetron [Zofran] 4 mg PO Q6H PRN 03/05/22 03/05/22 History Sennosides/Docusate Sodium [Senna 2 tab PO HS PRN 03/05/22 03/05/22 History Plus 8.6-50 mg Tablet] Sertraline [Zoloft] 50 mg PO DAILY 03/05/22 03/05/22 History dronabinoL [Marinol] 5 mg PO AC-BID 03/05/22 03/05/22 History lisinopriL [Prinivil] 10 mg PO DAILY 03/05/22 03/05/22 History traMADol HCl [Ultram] 50 - 100 mg PO QID PRN 03/05/22 03/05/22 History Allergies Allergy/AdvReac Type Severity Reaction Status Date / Time No Known Allergies Allergy Verified 03/05/22 15:50 Physical Exam Osteopathic Statement: *. No significant issues noted on an osteopathic structural exam other than those noted in the History and Physical/Consult. Vitals: Vital Signs Temp Pulse Resp BP Pulse Ox 03/05/22 17:35 75 18 104/54 98 03/05/22 16:39 78 18 106/64 100 03/05/22 15:29 77 03/05/22 15:15 71 14 03/05/22 12:27 97.4 F L 72 18 102/65 100 Intake and Output 03/05/22 03/05/22 03/05/22 06:59 14:59 22:59 Other: Weight 54.431 kg Results CBC & Chem 7: 03/05/22 12:40 03/05/22 12:40 Labs: Abnormal Lab Results - Last 24 Hours (Table) 03/05/22 03/05/22 03/05/22 Range/Units 12:40 12:40 12:40 WBC 11.1 H (3.8-10.6) k/uL RDW 16.3 H (11.5-15.5) % Neutrophils # 9.3 H (1.3-7.7) k/uL PT 14.7 H (9.0-12.0) sec INR 1.4 H (<1.2) D-Dimer 2.48 H (<0.60) mg/L FEU Sodium 133 L (137-145) mmol/L Chloride 96 L (98-107) mmol/L Carbon Dioxide 21 L (22-30) mmol/L Glucose 134 H (74-99) mg/dL Plasma Lactic Acid Nirmal (0.7-2.0) mmol/L Alkaline Phosphatase 227 H (38-126) U/L 03/05/22 Range/Units 12:40 WBC (3.8-10.6) k/uL RDW (11.5-15.5) % Neutrophils # (1.3-7.7) k/uL PT (9.0-12.0) sec INR (<1.2) D-Dimer (<0.60) mg/L FEU Sodium (137-145) mmol/L Chloride (98-107) mmol/L Carbon Dioxide (22-30) mmol/L Glucose (74-99) mg/dL Plasma Lactic Acid Nirmal 2.6 H* (0.7-2.0) mmol/L Alkaline Phosphatase (38-126) U/L
[2022-03-05] MEDS ORDERED: RIVAROXABAN 20 MG TAB PO SCH (21:00)
[2022-03-05] MEDS: PANTOPRAZOLE 40 MG/10 ML VIAL IVP SCH (21:32)
[2022-03-05] MEDS: FLUTICASONE 50MCG/SPRAY NASAL 16GM EA NOSTRIL SCH (21:33)
[2022-03-05] MEDS: LATANOPROST 0.005% OPHTH DROPS 2.5 ML BTL BOTH EYES SCH (21:34)
[2022-03-05] MEDS: traZODone HCL 100 MG TAB PO SCH (21:34)
[2022-03-05] MEDS: ZOLPIDEM 5 MG TAB PO SCH (21:34)
[2022-03-05] MEDS: LORATADINE 10 MG TAB PO SCH (21:34)
[2022-03-05] MEDS: SERTRALINE 50 MG TAB PO SCH (21:34)
[2022-03-06] MEDS: ATORVASTATIN 40 MG TAB PO SCH (08:04)
[2022-03-06] MEDS: LORATADINE 10 MG TAB PO SCH (08:04)
[2022-03-06] MEDS: SERTRALINE 50 MG TAB PO SCH (08:04)
[2022-03-06] MEDS: PANTOPRAZOLE 40 MG/10 ML VIAL IVP SCH (08:04)
[2022-03-06] MEDS: FUROSEMIDE 20 MG TAB PO SCH (08:04)
[2022-03-06] MEDS: SPIRONOLACTONE 25 MG TAB PO SCH (08:04)
[2022-03-06] MEDS: METOPROLOL SUCCINATE (ER) 100 MG TAB.ER.24H PO SCH (08:04)
[2022-03-06] MEDS: lisinopriL 10 MG TAB PO SCH (08:05)
[2022-03-06] MEDS: FLUTICASONE 50MCG/SPRAY NASAL 16GM EA NOSTRIL SCH (08:05)
--- NOTE | 2022-03-06 09:13 | P.CRDCN ---
History of Present Illness History of present illness: This is a pleasant 61-year-old female past medical history of nonischemic cardiomyopathy, status post biventricular ICD 04/2020, normal coronary arteries (by cardiac catheterization 03/2020), severe mitral regurgitation, hypertension, dyslipidemia, peripheral vascular disease, former tobacco use, rectal carcinoid tumor status post removal in 2009 at [facility], liver mass with possible metastatic neuroendocrine tumor 12/2020, status post partial resection of liver at [facility] November 2021, obstructive sleep apnea, chronic heart failure with reduced ejection fraction, pulmonary embolism on Xarelto. She follows with Dr. Beal. We are being consulted for possible anginal equilivant. Patient presents to the ER with complaints of worsening shortness of breath, decreased PO intake, fatigue, nausea, vomiting. She states that this has been gradually worsening since her surgery. She was hypoxic vis EMS with 89% on room air and was transported to ER for further evaluation. She denies any palpitations, symptoms of orthopnea or PND. Her shortness of breath occurs with activity. She denies any chest pain. DIAGNOSTICS * EKG reveals a paced rhythm, heart rate 66 * Telemetry tracings indicate V paced, heart rate 6070s. * CTA with no evidence of pulmonary embolism, stable pulmonary nodules with prior exam. Heart is within normal limits, no pericardial effusion. * Laboratory reviewed, troponin negative 3, d-dimer 2.48, proBNP 291, WBC 11.1, hemoglobin 0.8, platelets 375, sodium 133, potassium 4.7, BUN 7, serum creatinine 0.7, covid 19 negative, influenza negative * Cardiac catheterization 03/2020 revealed normal coronary arteries, severely impaired left ventricular systolic function with 4+ mitral regurgitation. * Echocardiogram 07/31/2020 in the office revealed EF of 3540 percent, severe mitral regurgitation, mild to moderate tricuspid regurgitation, PASP 39mmHg * Current home cardiac medications include atorvastatin 40 mg daily, Lasix 20 mg daily, metoprolol succinate 100 mg daily, lisinopril 10 mg daily, spironolactone 25 mg daily, Xarelto 20 mg daily REVIEW OF SYSTEMS At the time of my exam: CONSTITUTIONAL: Denies fever or chills. +decreased PO intake, +decreased appetite. CARDIOVASCULAR: Denies chest pain, +shortness of breath,Denies orthopnea, PND or palpitations. RESPIRATORY: Denies cough. GASTROINTESTINAL:+ abdominal pain,Denies diarrhea, constipation, +nausea +vomiting. MUSCULOSKELETAL: Denies myalgias. NEUROLOGIC: Denies numbness, tingling, headacbe or weakness. ENDOCRINE: + fatigue, +weight loss Denies polydipsia or polyurina. GENITOURINARY: Denies burning, hematuria or urgency with micturation. HEMATOLOGIC: Denies history of anemia or bleeding. PHYSICAL EXAMINATION Blood pressure 103/68, heart rate 100, afebrile, oxygen saturation 70% on 2 L nasal cannula CONSTITUTIONAL: No apparent distress. HEENT: Head is normocephalic. Pupils are equal, round. Sclerae anicteric. Mucous membranes of the mouth are moist. No JVD. No carotid bruit. CHEST EXAMINATION: Lungs are clear to auscultation. No chest wall tenderness is noted on palpation or with deep breathing. HEART EXAMINATION: Regular rate and rhythm. S1, S2 heard. Systolic ejection murmur at apex. ABDOMEN: Soft, nontender. Positive bowel sounds. EXTREMITIES: 2+ peripheral pulses, no lower extremity edema and no calf tenderness. NEUROLOGIC EXAMINATION: Patient is awake, alert and oriented x3. ASSESSMENT Shortness of breath, hypoxia, unclear etiology at this time Abdominal pain, nausea vomiting Symptoms of generalized fatigue, decreased PO intake, decreased appetite. Elevated d-dimer, CTA with no evidence of pulmonary embolism Chronic heart failure with reduced ejection fraction Rectal carcinoid tumor status post removal in 2009 at [facility], liver mass with possible metastatic neuroendocrine tumor 12/2020, status post partial resection of liver at [facility] November 2021 Nonischemic cardiomyopathy Severe mitral regurgitation, patient euvolemic on exam Status post biventricular ICD 04/2020 Hypertension Dyslipidemia Peripheral vascular disease Former tobacco use Obstructive sleep apnea History of ulmonary embolism on Xarelto PLAN Acute coronary syndrome has been ruled out, patient symptoms do not appear to be acute ischemia and no evidence of acute heart failure on exam Obtain 2D echocardiogram and doppler study to assess cardiac structure and fu nction. Device interrogation Continue home cardiac medications Further recommendations to follow Nurse practitioner note has been reviewed by physician. Signing provider agrees with the documented findings, assessment, and plan of care. Past Medical History Past Medical History: Coronary Artery Disease (CAD), Cancer, Heart Failure, Deep Vein Thrombosis (DVT), Eye Disorder, GERD/Reflux, Hyperlipidemia, Hypertension, Pneumonia, Pulmonary Embolus (PE), Sleep Apnea/CPAP/BIPAP Additional Past Medical History / Comment(s): Pulmonary Embolism, HX 2 clots inferior vena cava, colo/rectal cancer-surgically removed 2008 est, back pain from arthritis, R eye blindness, glaucoma bilaterally; uses CPAP. GLAUCOMA ,RAYNAUD'S. SEE DR HILL'S , liver mass History of Any Multi-Drug Resistant Organisms: None Reported Past Surgical History: AICD, Bowel Resection, Heart Catheterization, Hysterectomy, Orthopedic Surgery, Tubal Ligation Additional Past Surgical History / Comment(s): 9" removal of bowel cancer, D&C, venous ablation of L leg varicosity, cyst removed from back, colonoscopy, cervical surgery. Justo wrist sx, Neck fusion, RT KNEE MENISCUS SURGERY . dental extraction Past Anesthesia/Blood Transfusion Reactions: Postoperative Nausea & Vomiting (PONV) Additional Past Anesthesia/Blood Transfusion Reaction / Comment(s): PONV one time long ago; Type of Cardiac Device: AICD Device Placement Date:: 04/16/20 Past Psychological History: Anxiety Smoking Status: Former smoker - Past Family History Father Family Medical History: Cancer, Deep Vein Thrombosis (DVT) Additional Family Medical History / Comment(s): Lung cancer. Father of a massive CVA Mother Family Medical History: Diabetes Mellitus, Hyperlipidemia, Hypertension Additional Family Medical History / Comment(s): Mother at age 82 yrs. Sister(s) Family Medical History: Cancer Additional Family Medical History / Comment(s): skin Medications and Allergies Home Medications Medication Instructions Recorded Confirmed Type Rivaroxaban [Xarelto] 20 mg PO DAILY 12/14/15 03/05/22 History Timolol 0.5% Ophth Soln [Timoptic 1 drop BOTH EYES BID 12/14/15 03/05/22 History 0.5% Ophth Soln] Zolpidem [Ambien] 10 mg PO HS 12/14/15 03/05/22 History traZODone HCL [Desyrel] 100 mg PO HS 12/14/15 03/05/22 History Atorvastatin [Lipitor] 40 mg PO DAILY 05/21/17 03/05/22 History Spironolactone [Aldactone] 25 mg PO DAILY #30 tab 03/19/20 03/05/22 Rx ALPRAZolam [Xanax] 0.25 mg PO BID PRN 03/05/22 03/05/22 History Acyclovir [Zovirax] 1 applic TOPICAL Q3H PRN 03/05/22 03/05/22 History Furosemide [Lasix] 20 mg PO DAILY 03/05/22 03/05/22 History Latanoprost/Pf [Latanoprost 0.005% 1 drop BOTH EYES HS 03/05/22 03/05/22 History Eye Drop] Metoprolol Succinate (ER) [Toprol 100 mg PO DAILY 03/05/22 03/05/22 History Xl] Nitroglycerin Sl Tabs [Nitrostat] 0.4 mg SL Q5M PRN 03/05/22 03/05/22 History Omeprazole 40 mg PO DAILY 03/05/22 03/05/22 History Ondansetron [Zofran] 4 mg PO Q6H PRN 03/05/22 03/05/22 History Sennosides/Docusate Sodium [Senna 2 tab PO HS PRN 03/05/22 03/05/22 History Plus 8.6-50 mg Tablet] Sertraline [Zoloft] 50 mg PO DAILY 03/05/22 03/05/22 History dronabinoL [Marinol] 5 mg PO AC-BID 03/05/22 03/05/22 History lisinopriL [Prinivil] 10 mg PO DAILY 03/05/22 03/05/22 History traMADol HCl [Ultram] 50 - 100 mg PO QID PRN 03/05/22 03/05/22 History Allergies Allergy/AdvReac Type Severity Reaction Status Date / Time No Known Allergies Allergy Verified 03/05/22 15:50 Physical Exam Vitals: Vital Signs Temp Pulse Pulse Resp BP BP Pulse Ox 03/06/22 02:32 97.7 F 76 16 98/63 100 03/05/22 19:02 97.7 F 72 15 100/66 99 03/05/22 18:30 18 03/05/22 17:35 75 18 104/54 98 03/05/22 16:39 78 18 106/64 100 03/05/22 15:29 77 03/05/22 15:15 71 14 03/05/22 12:27 97.4 F L 72 18 102/65 100 Intake and Output 03/05/22 03/06/22 03/06/22 22:59 06:59 14:59 Intake Total 118 Balance 118 Intake: Oral 118 Other: Voiding Method Toilet Toilet # Voids 1 1 Weight 54.431 kg Results 03/05/22 12:40 03/05/22 12:40 Cardiac Enzymes 03/05/22 03/05/22 03/05/22 Range/Units 12:40 12:40 18:33 AST 35 (14-36) U/L Troponin I <0.012 <0.012 (0.000-0.034) ng/mL 03/05/22 Range/Units 21:33 AST (14-36) U/L Troponin I <0.012 (0.000-0.034) ng/mL Coagulation 03/05/22 Range/Units 12:40 PT 14.7 H (9.0-12.0) sec APTT 29.6 (22.0-30.0) sec CBC 03/05/22 Range/Units 12:40 WBC 11.1 H (3.8-10.6) k/uL RBC 4.80 (3.80-5.40) m/uL Hgb 12.8 (11.4-16.0) gm/dL Hct 40.2 (34.0-46.0) % Plt Count 375 (150-450) k/uL Comprehensive Metabolic Panel 03/05/22 Range/Units 12:40 Sodium 133 L (137-145) mmol/L Potassium 4.7 (3.5-5.1) mmol/L Chloride 96 L (98-107) mmol/L Carbon Dioxide 21 L (22-30) mmol/L BUN 7 (7-17) mg/dL Creatinine 0.70 (0.52-1.04) mg/dL Glucose 134 H (74-99) mg/dL Calcium 9.3 (8.4-10.2) mg/dL AST 35 (14-36) U/L ALT 18 (4-34) U/L Alkaline Phosphatase 227 H (38-126) U/L Total Protein 7.4 (6.3-8.2) g/dL Albumin 3.7 (3.5-5.0) g/dL Current Medications Generic Name Dose Route Start Last Admin Trade Name Freq PRN Reason Stop Dose Admin Acetaminophen 650 mg 03/05/22 18:05 Acetaminophen Tab 325 Mg Tab PO Q6HR PRN Mild Pain or Fever > 100.5 Hydrocodone Bitart/Acetaminophen 1 each 03/05/22 18:05 Hydrocodone/Apap 5-325mg 1 Each Tab PO Q4HR PRN Moderate Pain (Scale 4 to 6) Alprazolam 0.25 mg 03/05/22 17:22 Alprazolam 0.25 Mg Tab PO BID PRN Anxiety Atorvastatin Calcium 40 mg 03/06/22 09:00 Atorvastatin 40 Mg Tab PO DAILY CHIO Dronabinol 5 mg 03/06/22 07:30 Dronabinol 2.5 Mg Cap PO AC-BID CHIO Fluticasone Propionate 2 spray 03/05/22 18:30 03/05/22 21:33 Fluticasone 50mcg/[place] Nasal 16gm EA NOSTRIL 2 spray DAILY CHIO Administration Furosemide 20 mg 03/06/22 09:00 Furosemide 20 Mg Tab PO DAILY CHIO Latanoprost 1 drops 03/05/22 21:00 03/05/22 21:34 Latanoprost 0.005% Ophth Drops 2.5 Ml Btl BOTH EYES 1 drops HS CHIO Administration Lisinopril 10 mg 03/06/22 09:00 Lisinopril 10 Mg Tab PO DAILY CHIO Loratadine 10 mg 03/05/22 18:30 03/05/22 21:34 Loratadine 10 Mg Tab PO 10 mg DAILY CHIO Administration Melatonin 3 mg 03/05/22 18:14 Melatonin 3 Mg Tablet PO HS PRN Insomnia Metoprolol Succinate 100 mg 03/06/22 09:00 Metoprolol Succinate (Er) 100 Mg Tab.Er.24h PO DAILY CHIO Naloxone HCl 0.2 mg 03/05/22 15:02 Naloxone 0.4 Mg/Ml 1 Ml Vial IV Q2M PRN Opioid Reversal Pantoprazole Sodium 40 mg 03/05/22 18:30 03/05/22 21:32 Pantoprazole 40 Mg/10 Ml Vial IVP 40 mg DAILY CHIO Administration Prochlorperazine Edisylate 5 mg 03/05/22 17:22 Prochlorperazine Inj 10 Mg/2 Ml Vial IVP Q6HR PRN Nausea And Vomiting Rivaroxaban 20 mg 03/05/22 21:00 03/05/22 22:22 Rivaroxaban 20 Mg Tab PO 20 mg HS CHIO Administration Protocol Sertraline HCl 50 mg 03/05/22 18:30 03/05/22 21:34 Sertraline 50 Mg Tab PO 50 mg DAILY CHIO Administration Spironolactone 25 mg 03/06/22 09:00 Spironolactone 25 Mg Tab PO DAILY CHIO Tramadol HCl 50 mg 03/05/22 18:19 Tramadol 50 Mg Tab PO QID PRN Pain Trazodone HCl 100 mg 03/05/22 21:00 03/05/22 21:34 Trazodone Hcl 100 Mg Tab PO 100 mg HS CHIO Administration Zolpidem Tartrate 10 mg 03/05/22 21:00 03/05/22 21:34 Zolpidem 5 Mg Tab PO 10 mg HS CHIO Administration Intake and Output 03/05/22 03/06/22 03/06/22 22:59 06:59 14:59 Intake Total 118 Balance 118 Intake: Oral 118 Other: Voiding Method Toilet Toilet # Voids 1 1 Weight 54.431 kg 03/05/22 12:40 03/05/22 12:40
[2022-03-06 09:17] LABS: African American GFR (CKD) 69.4 (60.0-200.0); Anion Gap 14.1 mmol/L (10.00-18.00); BUN/Creat Ratio 11.4 Ratio (12.00-20.00); Blood Urea Nitrogen 11.4 mg/dL (9.0-27.0); Calcium 9.4 mg/dL (8.7-10.3); Carbon Dioxide 24.9 mmol/L (20.0-27.5); Magnesium 1.6 mg/dL (1.5-2.4); Non-African American GFR(CKD) 59.9 (60.0-200.0); Phosphorus 5.2 mg/dL (2.4-5.1); Potassium 4.6 mmol/L (3.5-5.5)
[2022-03-06 09:19] LABS: Basophils # (A) 0 X 10*3/uL (0.00-0.10); Basophils % (A) 0 %; Eosinophils # (A) 0 X 10*3/uL (0.04-0.35); Eosinophils % (A) 0 %; HCT 35.9 % (37.2-46.3); HGB 11.8 g/dL (12.0-15.0); Immature Grans, Automated 0.7 %; Lymphocytes # (A) 0.76 X 10*3/uL (0.90-5.00); Lymphocytes % (A) 6.7 %; MCH 26.8 pg (27.0-32.0); MCHC 32.9 g/dL (32.0-37.0); MCV 81.4 fL (80.0-97.0); Mean Platelet Volume 9.5 fL (9.5-12.2); Monocytes # (A) 0.13 X 10*3/uL (0.20-1.00); Monocytes % (A) 1.1 %; NRBC Per 100 WBC 0 /100 WBCS (0.0-0.0); Neutrophils # (A) 10.45 X 10*3/uL (1.80-7.70); Neutrophils % (A) 91.5 %; Platelet Count 353 X 10*3/uL (140-440); RBC 4.41 X 10*6/uL (4.10-5.20); RDW 16.7 % (11.5-14.5); WBC 11.42 X 10*3/uL (4.50-10.00)
--- NOTE | 2022-03-06 11:11 | CA ---
Transthoracic Echo Report Name: Juliana Greenwood Age: 61 Gender: F : 1960 Exam Date: 03/06/2022 07:27 Exam Location: [facility] Ht (in): 67 Wt (lb): 120 Ordering Physician: Re Cates DO Attending/Referring Phys: Brisa Renya MD Quality Reviewer Clara Fonseca RDCS Procedure CPT: Indications: chf Cardiac Hx: Technical Quality: Fair Contrast 1: Total Dose (mL): Contrast 2: Total Dose (mL): MEASUREMENTS (Male / Female) Normal Values 2D ECHO LV Diastolic Diameter PLAX 3.2 cm 4.2 - 5.9 / 3.9 - 5.3 cm LV Systolic Diameter PLAX 2.0 cm IVS Diastolic Thickness 1.0 cm 0.6 - 1.0 / 0.6 - 0.9 cm LVPW Diastolic Thickness 1.0 cm 0.6 - 1.0 / 0.6 - 0.9 cm LV Relative Wall Thickness 0.6 RV Internal Dim ED PLAX 2.2 cm LA Systolic Diameter LX 2.5 cm 3.0 - 4.0 / 2.7 - 3.8 cm M-MODE Aortic Root Diameter MM 3.0 cm MV E Point Septal Separation 0.3 cm AV Cusp Separation MM 1.9 cm DOPPLER AV Peak Velocity 97.3 cm/s AV Peak Gradient 3.8 mmHg MV Area PHT 1.8 cm??? Mitral E Point Velocity 63.2 cm/s Mitral A Point Velocity 81.0 cm/s Mitral E to A Ratio 0.8 MV Deceleration Time 417.0 ms TR Peak Velocity 208.4 cm/s TR Peak Gradient 17.4 mmHg Right Ventricular Systolic Press 22.2 mmHg FINDINGS Left Ventricle Left ventricular ejection fraction is estimated at 60-65 %. Left ventricular cavity size normal. Left ventricular wall thickness normal. Right Ventricle Normal right ventricular size and function. Right ventricular systolic pressure within normal limits. Right Atrium Normal right atrial size. Left Atrium Normal left atrial size. Mitral Valve Structurally normal mitral valve. No mitral stenosis, regurgitation or prolapse. Aortic Valve Trileaflet aortic valve. No aortic valve stenosis or regurgitation. Tricuspid Valve Mild tricuspid regurgitation. Pulmonic Valve Structurally normal pulmonic valve. Pericardium Normal pericardium. No pericardial effusion. Aorta Normal size aortic root and proximal ascending aorta. CONCLUSIONS Left ventricle a systolic function is normal Previewed by: Dr. Se Kenny MD (Electronically Signed) Final Date: 06 March 2022 11:10
--- NOTE | 2022-03-06 13:35 | P.PN ---
Subjective Progress Note Date: 03/06/22 61-year-old female patient admitted to the hospital because of hypoxemia. The patient was found to have a pulse ox of 89% after home as found by EMS. She is currently on 2 L and her pulse is up to 99-100%. She was admitted to the hospital for further investigation. She is known to have previous history of rectal carcinoid tumor that was surgically removed in 2009 at the [facility]. . 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 I believe the patient underwent a surgical hepatectomy. She has obstructive sleep apnea and she utilizes CPAP therapy. She has also history of congestion heart failure, systolic in nature with an ejection fraction being port around 20% and a previous RAJAT showed severe mitral regurgitation and the patient was already given an AICD. The patient also has history of pulmonary embolism and and she is on long-term and correlation with Xarelto. Other comorbid conditions include hypertension, hyperlipidemia, COPD the patient is an ex-smoker. During this current admission, the patient was found to have a white cell count of 11.1 with a hemoglobin 12.8 and a platelet count of 375. Coagulation profile showed an INR of 1.4 with a PT of 14.7 and a d-dimer of 2.48. The BUN is at 7 with a creatinine of 0.7 and the sodium level is at 133. Lactic acid level was at 2.6. Bilirubin was 0.9. Liver function test shows an alkaline phosphatase of 227, ALT and AST are both within normal limits. Total protein was 7.4 with an albumin of 3.1. ProBNP level is 291. The CTA of the chest showed no definite pulmonary embolism. The patient had biapical pleural parenchymal scarring. No focal consolidation. No pleural effusion. 3 mm right lower lobe pulmonary nodule and a 2 mm right middle lobe pulmonary nodules that have been stable without any interval change. The CAT scan of the abdomen and pelvis showed postsurgical changes in the right hepatic lobe with a 5.5 cm thickness wall fluid collection at the resection site. This may be a seroma. On 03/06/2022, the patient has no new complaints. The patient is going to have a GI evaluation and a surgical consultation was requested. The patient was seen by cardiology and the medical team and their input is also appreciated. She is currently on oxygen 2 L per minute nasal cannula. Home medications are all resume. Oral intake is minimal at this point in time. Consider EGD as the patient has intractable nausea and emesis. Objective - Vital Signs Vital signs: Vital Signs Temp 97.8 F 03/06/22 13:14 Pulse 69 03/06/22 13:14 Resp 16 03/06/22 13:14 BP 107/66 03/06/22 13:14 Pulse Ox 99 03/06/22 13:14 FiO2 Intake & Output 03/05/22 03/06/22 03/06/22 18:59 06:59 18:59 Intake Total 118 Balance 118 Weight 54.431 kg Intake: Oral 118 Other: Voiding Method Toilet Toilet Toilet # Voids 1 1 - Exam Calm and comfortable likely distress on 2 L of oxygen by nasal cannula Head exam was generally normal. There was no scleral icterus or corneal arcus. Mucous membranes were moist. Neck was supple and without jugular venous distension, thyromegaly, or carotid bruits. Carotids were easily palpable bilaterally. There was no adenopathy. Lungs were clear to auscultation and percussion, and with normal diaphragmatic excursion. No wheezes or rales were noted. Cardiac exam revealed the PMI to be normally situated and sized. The rhythm was regular and no extrasystoles were noted during several minutes of auscultation. The first and second heart sounds were normal and physiologic splitting of the second heart sound was noted. There were no murmurs, rubs, clicks, or gallops. The patient is a pacemaker pocket of the left anterior chest area/defibrillator Abdominal exam revealed normal bowel sounds. The abdomen was soft, non-tender, and without masses, organomegaly, or appreciable enlargement of the abdominal aorta. Examination of the extremities revealed easily palpable radial, femoral and pedal pulses. There was no cyanosis, clubbing or edema. Examination of the skin revealed no evidence of significant rashes, suspicious appearing nevi or other concerning lesions. Neurologically, the patient is awake and alert and the patient does not have any focal neurological deficit. Cranial nerves are essentially intact. - Labs CBC & Chem 7: 03/06/22 05:39 03/06/22 05:39 Labs: Abnormal Lab Results - Last 24 Hours (Table) 09/21/22 09/21/22 Range/Units 05:39 05:39 WBC 11.42 H (4.50-10.00) X 10*3/uL Hgb 11.8 L (12.0-15.0) g/dL Hct 35.9 L (37.2-46.3) % MCH 26.8 L (27.0-32.0) pg RDW 16.7 H (11.5-14.5) % Immature Gran # 0.08 H (0.00-0.04) X 10*3/uL Neutrophils # 10.45 H (1.80-7.70) X 10*3/uL Lymphocytes # 0.76 L (0.90-5.00) X 10*3/uL Monocytes # 0.13 L (0.20-1.00) X 10*3/uL Eosinophils # 0 L (0.04-0.35) X 10*3/uL Est GFR (CKD-EPI)NonAf 59.9 L (60.0-200.0) BUN/Creatinine Ratio 11.40 L (12.00-20.00) Ratio Glucose 149 H (70-110) mg/dL Phosphorus 5.2 H (2.4-5.1) mg/dL Assessment and Plan Plan: Hypoxemia/Shortness of breath under investigation, likely subacute and chronic , currently on 2 L of oxygen by nasal cannula. CT angiogram of the chest shows no acute abnormalities. Nonspecific or nodules without any other acute abnormalities explaining the patient shortness of breath or hypoxemia. No significant change in the patient's condition since yesterday Chronic systolic heart failure with an ejection fraction is impaired at around 20-30% and the patient has biventricular AICD in place Valvular heart disease with severe mitral regurgitation, no signs of any deco mpensated heart failure at this point in time in the proBNP level was nonelevated History of rectal carcinoid tumor postresection 2009. The patient developed liver metastases in 2020 and the patient underwent systemic chemotherapy and following that she had a surgical hepatectomy. This was done at [facility] the patient seems to be in remission. Unexplained weight loss and diminished oral intake and very poor appetite Previous history of pulmonary embolism, currently on Xarelto Right eye blindness/glucoma Obstructive sleep apnea not utilizing CPAP therapy Hypertension Hyperlipidemia Previous history of DVT still maintained on anticoagulation Coronary artery disease COPD maintained on renal and abdominal patient basis Chronic anxiety and depression Osteoarthritis multiple joints Chronic insomnia Intractable nausea and emesis and diminished oral intake and weight loss Plan General surgery consultation for possible EGD Rule out occult metastases from underlying neuroendocrine/carcinoid tumor No acute pulmonary cause for the patient shortness of breath. The patient have underlying COPD which is essentially chronic and I do not think this may be partly contributing to the patient shortness of breath but is not limited only to lung disease. Her cardiac condition seems to be also stable and the patient has well compensated heart failure/valvular heart disease. She is quite debilitated. She went to systemic chemotherapy and following that she underwent a partial liver resection for removal of a carcinoid tumor. Since then, the patient has become progressively more weak and she has diminished appetite and weight loss. Rule out occult metastases with neuroendocrine/carcinoid tumor. My overall opinion that the patient is quite debilitated and deconditioned an occult malignancy needs to be again worked up. I think the pulmonary status and cardiac status is stable for now. Continue Xarelto. Continue home medications. Continue diuretics. Not much to be added some the pulmonary standpoint. Evaluate for home O2 at the time of discharge.
[2022-03-06] MEDS ORDERED: MAGNESIUM SULFATE-D5W PMX 1 GM in DEXTROSE/WATER 1 100ML.BAG IVPB ONE (13:59)
--- NOTE | 2022-03-06 14:37 | P.GSCN ---
History of Present Illness Consult date: 03/06/22 History of present illness: CHIEF COMPLAINT: Shortness of breath Reason for consult: Nausea and vomiting HISTORY OF PRESENT ILLNESS: This is a 61-year-old female who came into the hospital due to shortness of breath. She has been seen evaluated by pulmonary service and they report the shortness of breath and hypoxia is likely subacute and chronic with nonspecific lung nodules noted on CT. Patient reports that she's been having nausea and vomiting over the last month. She reports lower abdominal pain. She does have a known history of rectal cancer with liver m etastases. She had resection of her rectal cancer in [address] [facility]. She liver mass with possible metastatic neuroendocrine tumor in December 2020 status post partial resection of liver at [facility] November 2021. Prior to that patient had been on chemotherapy. Patient also has a history of PE and takes Xarelto. Also has cardiac history of heart failure with EF of 20-30% and AICD placed. S he also has history of chronic constipation. She reports that her last bowel movement was 2 days ago. She reports it is normal. She reports poor oral intake. She had a computed tomography scan of the abdomen and pelvis completed showing postsurgical changes of the hepatic lobe with a 5.5 cm thick-walled fluid collection at the resection site. This may represent an abscess versus seroma. Patient denies any fever chills or sweats. Surgical service consulted in regards to patient's nausea and vomiting and possible need for EGD. PAST MEDICAL HISTORY: See list. PAST SURGICAL HISTORY: See list. MEDICATIONS: See list. ALLERGIES: See list. SOCIAL HISTORY: No illicit drug use. REVIEW OF SYSTEMS: CONSTITUTIONAL: Denies fever or chills. HEENT: Denies blurred vision, vision changes, or eye pain. Denies hemoptysis CARDIOVASCULAR: Denies chest pain or pressure. RESPIRATORY: No shortness of breath. GASTROINTESTINAL: See HPI for pertinent findings HEMATOLOGIC: Denies bleeding disorders. GENITOURINARY: Denies any blood in urine or increased urinary frequency. SKIN: Denies pruitis. Denies rash. PHYSICAL EXAM: VITAL SIGNS: Reviewed GENERAL: Well-developed in no acute distress. HEENT: No sclera icterus. Extraocular movements grossly intact. Moist buccal mucosa. Head is atraumatic, normocephalic. No nasal drainage. ABDOMEN: Soft. Nondistended. Mild tenderness epigastric area NEUROLOGIC: Alert and oriented. Cranial nerves II through XII grossly intact. LABORATORY DATA: WBC 11.42 hgb 11.8 plt 353 na 135 k 4.6 creatinine 1.0 magnesium 1.6 AST ALT normal alk phos 227 Troponin negative 3 Covid 19 negative influenza negative IMAGING: CTA chest no evidence of PE. Stable pulmonary nodules from prior exam. No new enlarging pulmonary nodules. Computed tomography scan abdomen and pelvis postsurgical changes of the right hepatic lobe with 5.5 cm thick-walled fluid collection at the resection site. This may represent an abscess versus seroma in the appropriate clinical setting. ASSESSMENT: 1. Nausea and vomiting with epigastric tenderness 2. Right hepatic lobe fluid collection possibly seroma 3. Hypomagnesemia PLAN: -Patient scheduled for EGD tomorrow with Dr. grewal -Nothing by mouth after midnight -Continue antiemetics -Replace magnesium Physician Chemical Production Engineer note has been reviewed by physician. Signing provider agrees with the documented findings, assessment, and plan of care. Past Medical History Past Medical History: Coronary Artery Disease (CAD), Cancer, Heart Failure, Deep Vein Thrombosis (DVT), Eye Disorder, GERD/Reflux, Hyperlipidemia, Hypertension, Pneumonia, Pulmonary Embolus (PE), Sleep Apnea/CPAP/BIPAP Additional Past Medical History / Comment(s): Pulmonary Embolism, HX 2 clots inferior vena cava, colo/rectal cancer-surgically removed 2008 est, back pain f rom arthritis, R eye blindness, glaucoma bilaterally; uses CPAP. GLAUCOMA ,RAYNAUD'S. SEE DR HILL'S , liver mass History of Any Multi-Drug Resistant Organisms: None Reported Past Surgical History: AICD, Bowel Resection, Heart Catheterization, Hyst erectomy, Orthopedic Surgery, Tubal Ligation Additional Past Surgical History / Comment(s): 9" removal of bowel cancer, D&C, venous ablation of L leg varicosity, cyst removed from back, colonoscopy, cervical surgery. Justo wrist sx, Neck fusion, RT KNEE MENISCUS SURGERY . dental extraction Past Anesthesia/Blood Transfusion Reactions: Postoperative Nausea & Vomiting (PONV) Additional Past Anesthesia/Blood Transfusion Reaction / Comm: PONV one time long ago; Type of Cardiac Device: AICD Device Placement Date:: 04/16/20 Past Psychological History: Anxiety Smoking Status: Former smoker - Past Family History Father Family Medical History: Cancer, Deep Vein Thrombosis (DVT) Additional Family Medical History / Comment(s): Lung cancer. Father of a massive CVA Mother Family Medical History: Diabetes Mellitus, Hyperlipidemia, Hypertension Additional Family Medical History / Comment(s): Mother at age 82 yrs. Sister(s) Family Medical History: Cancer Additional Family Medical History / Comment(s): skin Medications and Allergies Home Medications Medication Instructions Recorded Confirmed Type Rivaroxaban [Xarelto] 20 mg PO DAILY 12/14/15 03/05/22 History Timolol 0.5% Ophth Soln [Timoptic 1 drop BOTH EYES BID 12/14/15 03/05/22 History 0.5% Ophth Soln] Zolpidem [Ambien] 10 mg PO HS 12/14/15 03/05/22 History traZODone HCL [Desyrel] 100 mg PO HS 12/14/15 03/05/22 History Atorvastatin [Lipitor] 40 mg PO DAILY 05/21/17 03/05/22 History Spironolactone [Aldactone] 25 mg PO DAILY #30 tab 03/19/20 03/05/22 Rx ALPRAZolam [Xanax] 0.25 mg PO BID PRN 03/05/22 03/05/22 History Acyclovir [Zovirax] 1 applic TOPICAL Q3H PRN 03/05/22 03/05/22 History Furosemide [Lasix] 20 mg PO DAILY 03/05/22 03/05/22 History Latanoprost/Pf [Latanoprost 0.005% 1 drop BOTH EYES HS 03/05/22 03/05/22 History Eye Drop] Metoprolol Succinate (ER) [Toprol 100 mg PO DAILY 03/05/22 03/05/22 History Xl] Nitroglycerin Sl Tabs [Nitrostat] 0.4 mg SL Q5M PRN 03/05/22 03/05/22 History Omeprazole 40 mg PO DAILY 03/05/22 03/05/22 History Ondansetron [Zofran] 4 mg PO Q6H PRN 03/05/22 03/05/22 History Sennosides/Docusate Sodium [Senna 2 tab PO HS PRN 03/05/22 03/05/22 History Plus 8.6-50 mg Tablet] Sertraline [Zoloft] 50 mg PO DAILY 03/05/22 03/05/22 History dronabinoL [Marinol] 5 mg PO AC-BID 03/05/22 03/05/22 History lisinopriL [Prinivil] 10 mg PO DAILY 03/05/22 03/05/22 History traMADol HCl [Ultram] 50 - 100 mg PO QID PRN 03/05/22 03/05/22 History Allergies Allergy/AdvReac Type Severity Reaction Status Date / Time No Known Allergies Allergy Verified 03/05/22 15:50 Surgical - Exam Vital Signs Temp Pulse Resp BP Pulse Ox 97.4 F L 72 18 102/65 100 03/05/22 12:27 03/05/22 12:27 03/05/22 12:27 03/05/22 12:27 03/05/22 12:27 Results - Labs 03/06/22 05:39 03/06/22 05:39 Abnormal Lab Results - Last 24 Hours (Table) 03/05/22 03/05/22 03/05/22 Range/Units 12:40 12:40 12:40 WBC 11.1 H (3.8-10.6) k/uL Hgb (12.0-15.0) g/dL Hct (37.2-46.3) % MCH (27.0-32.0) pg RDW 16.3 H (11.5-15.5) % Immature Gran # (0.00-0.04) X 10*3/uL Neutrophils # 9.3 H (1.3-7.7) k/uL Lymphocytes # (0.90-5.00) X 10*3/uL Monocytes # (0.20-1.00) X 10*3/uL Eosinophils # (0.04-0.35) X 10*3/uL PT 14.7 H (9.0-12.0) sec INR 1.4 H (<1.2) D-Dimer 2.48 H (<0.60) mg/L FEU Sodium 133 L (137-145) mmol/L Chloride 96 L (98-107) mmol/L Carbon Dioxide 21 L (22-30) mmol/L Est GFR (CKD-EPI)NonAf (60.0-200.0) BUN/Creatinine Ratio (12.00-20.00) Ratio Glucose 134 H (74-99) mg/dL Plasma Lactic Acid Nirmal (0.7-2.0) mmol/L Phosphorus (2.4-5.1) mg/dL Alkaline Phosphatase 227 H (38-126) U/L 03/05/22 03/06/22 03/06/22 Range/Units 12:40 05:39 05:39 WBC 11.42 H (3.8-10.6) k/uL Hgb 11.8 L (12.0-15.0) g/dL Hct 35.9 L (37.2-46.3) % MCH 26.8 L (27.0-32.0) pg RDW 16.7 H (11.5-15.5) % Immature Gran # 0.08 H (0.00-0.04) X 10*3/uL Neutrophils # 10.45 H (1.3-7.7) k/uL Lymphocytes # 0.76 L (0.90-5.00) X 10*3/uL Monocytes # 0.13 L (0.20-1.00) X 10*3/uL Eosinophils # 0 L (0.04-0.35) X 10*3/uL PT (9.0-12.0) sec INR (<1.2) D-Dimer (<0.60) mg/L FEU Sodium (137-145) mmol/L Chloride (98-107) mmol/L Carbon Dioxide (22-30) mmol/L Est GFR (CKD-EPI)NonAf 59.9 L (60.0-200.0) BUN/Creatinine Ratio 11.40 L (12.00-20.00) Ratio Glucose 149 H (74-99) mg/dL Plasma Lactic Acid Nirmal 2.6 H* (0.7-2.0) mmol/L Phosphorus 5.2 H (2.4-5.1) mg/dL Alkaline Phosphatase (38-126) U/L Diabetes panel 03/05/22 03/06/22 Range/Units 12:40 05:39 Sodium 133 L 135 (137-145) mmol/L Potassium 4.7 4.6 (3.5-5.1) mmol/L Chloride 96 L 96 (98-107) mmol/L Carbon Dioxide 21 L 24.9 (22-30) mmol/L BUN 7 11.4 (7-17) mg/dL Creatinine 0.70 1.0 (0.52-1.04) mg/dL Glucose 134 H 149 H (74-99) mg/dL Calcium 9.3 9.4 (8.4-10.2) mg/dL AST 35 (14-36) U/L ALT 18 (4-34) U/L Alkaline Phosphatase 227 H (38-126) U/L Total Protein 7.4 (6.3-8.2) g/dL Albumin 3.7 (3.5-5.0) g/dL Calcium panel 03/05/22 03/06/22 Range/Units 12:40 05:39 Calcium 9.3 9.4 (8.4-10.2) mg/dL Phosphorus 5.2 H (2.4-5.1) mg/dL Albumin 3.7 (3.5-5.0) g/dL Pituitary panel 03/05/22 03/06/22 Range/Units 12:40 05:39 Sodium 133 L 135 (137-145) mmol/L Potassium 4.7 4.6 (3.5-5.1) mmol/L Chloride 96 L 96 (98-107) mmol/L Carbon Dioxide 21 L 24.9 (22-30) mmol/L BUN 7 11.4 (7-17) mg/dL Creatinine 0.70 1.0 (0.52-1.04) mg/dL Glucose 134 H 149 H (74-99) mg/dL Calcium 9.3 9.4 (8.4-10.2) mg/dL Adrenal panel 03/05/22 03/06/22 Range/Units 12:40 05:39 Sodium 133 L 135 (137-145) mmol/L Potassium 4.7 4.6 (3.5-5.1) mmol/L Chloride 96 L 96 (98-107) mmol/L Carbon Dioxide 21 L 24.9 (22-30) mmol/L BUN 7 11.4 (7-17) mg/dL Creatinine 0.70 1.0 (0.52-1.04) mg/dL Glucose 134 H 149 H (74-99) mg/dL Calcium 9.3 9.4 (8.4-10.2) mg/dL Total Bilirubin 0.9 (0.2-1.3) mg/dL AST 35 (14-36) U/L ALT 18 (4-34) U/L Alkaline Phosphatase 227 H (38-126) U/L Total Protein 7.4 (6.3-8.2) g/dL Albumin 3.7 (3.5-5.0) g/dL
--- NOTE | 2022-03-06 15:09 | P.PN ---
Subjective Progress Note Date: 03/06/22 Patient seen and examined at bedside. Patient states that her nausea and vomiting has improved since hospital admission. Patient still has some epigastric tenderness. Patient denies chest pain or shortness of breath at this time. Patient scheduled for EGD by Dr. Mcmahon tomorrow Objective - Vital Signs Vital signs: Vital Signs Temp 97.8 F 03/06/22 13:14 Pulse 69 03/06/22 13:14 Resp 16 03/06/22 13:14 BP 107/66 03/06/22 13:14 Pulse Ox 99 03/06/22 13:14 FiO2 Intake & Output 03/05/22 03/06/22 03/06/22 18:59 06:59 18:59 Intake Total 118 Balance 118 Weight 54.431 kg Intake: Oral 118 Other: Voiding Method Toilet Toilet Toilet # Voids 1 2 - Exam General: [non toxic], [no distress], [appears at stated age] Derm: [warm], [dry] Head: [atraumatic], [normocephalic], [symmetric] Eyes: [EOMI], [no lid lag], [anicteric sclera] Mouth: [no lip lesion], [mucus membranes moist] Cardiovascular: [S1S2 reg], [no murmur], [positive posterior tibial pulse bilateral], Lungs: [CTA bilateral], [no rhonchi, no rales] , [no accessory muscle use] Abdominal: [soft], [ epigastric tenderness to palpation], [no guarding], [no appreciable organomegaly] Ext: [no gross muscle atrophy], [no edema], [no contractures] Neuro: [ CN II-XI grossly intact], [no focal neuro deficits] Psych: [Alert], [oriented], [appropriate affect] - Labs CBC & Chem 7: 03/06/22 05:39 03/06/22 05:39 Labs: Abnormal Lab Results - Last 24 Hours (Table) 03/06/22 03/06/22 Range/Units 05:39 05:39 WBC 11.42 H (4.50-10.00) X 10*3/uL Hgb 11.8 L (12.0-15.0) g/dL Hct 35.9 L (37.2-46.3) % MCH 26.8 L (27.0-32.0) pg RDW 16.7 H (11.5-14.5) % Immature Gran # 0.08 H (0.00-0.04) X 10*3/uL Neutrophils # 10.45 H (1.80-7.70) X 10*3/uL Lymphocytes # 0.76 L (0.90-5.00) X 10*3/uL Monocytes # 0.13 L (0.20-1.00) X 10*3/uL Eosinophils # 0 L (0.04-0.35) X 10*3/uL Est GFR (CKD-EPI)NonAf 59.9 L (60.0-200.0) BUN/Creatinine Ratio 11.40 L (12.00-20.00) Ratio Glucose 149 H (70-110) mg/dL Phosphorus 5.2 H (2.4-5.1) mg/dL Assessment and Plan Assessment: Hypoxia with anginal equivalent Repeat echocardiogram cardiogram reveals an ejection fraction 60-65% -trops x 2 negative -Cardiology rcs appreciated -pulmonary recs appreciated - tele - AICD interrogiation - resume lisinopril, metorpolol, lasix, lipitor - start ASA lactic acid - undetermined etiology - improved without IV fluids Abdominal pain with seroma and recent liver met removal Colon/rectal CA- not on chemo intractable vomiting - surgery recs for EGD - PPI - pain control - outpatinet follow-up with oncologist - awiat records from [facility] Sinusitis - flonase - claritin Chronic: HTN HLD Hx DVT Colon/rectal cnacer The patient is admitted with an anticipated less than 2 midnight stay for evaluation of shortness of breath. Surrogate decision-maker: Son CODE STATUS:DNR DVT prophylaxis: Xarelto Discussed with: patient, nursing Anticipated discharge date: in 1-[address]: home Time with Patient: Greater than 30
[2022-03-06] MEDS: traZODone HCL 100 MG TAB PO SCH (21:00)
[2022-03-06] MEDS: ZOLPIDEM 5 MG TAB PO SCH (21:00)
[2022-03-06] MEDS: LATANOPROST 0.005% OPHTH DROPS 2.5 ML BTL BOTH EYES SCH (21:01)
[2022-03-07 09:07] LABS: Basophils # (A) 0.02 X 10*3/uL (0.00-0.10); Basophils % (A) 0.2 %; Eosinophils # (A) 0.02 X 10*3/uL (0.04-0.35); Eosinophils % (A) 0.2 %; HCT 35.3 % (37.2-46.3); HGB 11.3 g/dL (12.0-15.0); Immature Grans, Automated 0.8 %; Lymphocytes # (A) 1.19 X 10*3/uL (0.90-5.00); Lymphocytes % (A) 9.4 %; MCH 26.8 pg (27.0-32.0); MCV 83.6 fL (80.0-97.0); Mean Platelet Volume 10.1 fL (9.5-12.2); Monocytes # (A) 0.73 X 10*3/uL (0.20-1.00); Monocytes % (A) 5.8 %; NRBC Per 100 WBC 0 /100 WBCS (0.0-0.0); Neutrophils # (A) 10.61 X 10*3/uL (1.80-7.70); Neutrophils % (A) 83.6 %; Platelet Count 377 X 10*3/uL (140-440); RBC 4.22 X 10*6/uL (4.10-5.20); RDW 17.2 % (11.5-14.5); WBC 12.67 X 10*3/uL (4.50-10.00)
--- NOTE | 2022-03-07 09:14 | P.PN ---
Subjective This is a pleasant 61-year-old female past medical history of nonischemic cardiomyopathy, status post biventricular ICD 04/2020, normal coronary arteries (by cardiac catheterization 03/2020), severe mitral regurgitation, hypertension, dyslipidemia, peripheral vascular disease, former tobacco use, rectal carcinoid tumor status post removal in 2009 at [facility], liver mass with possible metastatic neuroendocrine tumor 12/2020, status post partial resection of liver at [facility] November 2021, obstructive sleep apnea, chronic heart failure with reduced ejection fraction, pulmonary embolism on Xarelto. She follows with Dr. Beal. We are being consulted for possible anginal equilivant. Patient presents to the ER with complaints of worsening shortness of breath, decreased PO intake, fatigue, nausea, vomiting. She states that this has been gradually worsening since her surgery. She was hypoxic vis EMS with 89% on room air and was transpo rted to ER for further evaluation. She denies any palpitations, symptoms of orthopnea or PND. Her shortness of breath occurs with activity. She denies any chest pain. DIAGNOSTICS * CTA with no evidence of pulmonary embolism, stable pulmonary nodules with prior exam. Heart is within normal limits, no pericardial effusion. * Cardiac catheterization 03/2020 revealed normal coronary arteries, severely impaired left ventricular systolic function with 4+ mitral regurgitation. * Echocardiogram 07/31/2020 in the office revealed EF of 3540 percent, severe mitral regurgitation, mild to moderate tricuspid regurgitation, PASP 39mmHg 03/07 Patient seen and examined at bedside, no acute distress. She states that her symptoms have actually improved. She denies any chest pain or shortness of breath. Patient was evaluated by surgery secondary to her nausea and vomiting and epigastric tenderness, plan for patient to go for EGD today. Echocardiogram reported EF of 6065 %, structurally normal mitral valve, no mitral stenosis, no regurgitation or prolapse PHYSICAL EXAMINATION Blood pressure 115/70, heart rate 77, afebrile, saturation 100% on 2 L nasal cannula CONSTITUTIONAL: No apparent distress. HEENT: Neck Supple. No JVD. CHEST EXAMINATION: Lungs are clear to auscultation. No chest wall tenderness is noted on palpation or with deep breathing. HEART EXAMINATION: Regular rate and rhythm. S1, S2 heard. Systolic ejection murmur at apex. ABDOMEN: Soft, nontender. Positive bowel sounds. EXTREMITIES: 2+ peripheral pulses, no lower extremity edema and no calf tenderness. NEUROLOGIC EXAMINATION: Patient is awake, alert and oriented x3. ASSESSMENT Shortness of breath, hypoxia, unclear etiology at this time Abdominal pain, nausea vomiting Symptoms of generalized fatigue, decreased PO intake, decreased appetite. Elevated d-dimer, CTA with no evidence of pulmonary embolism Chronic heart failure with reduced ejection fraction, improved ejection fracture Rectal carcinoid tumor status post removal in 2009 at [facility], liver mass with possible metastatic neuroendocrine tumor 12/2020, status post partial resection of liver at [facility] November 2021 Nonischemic cardiomyopathy Severe mitral regurgitation, patient euvolemic on exam Status post biventricular ICD 04/2020 Hypertension Dyslipidemia Peripheral vascular disease Former tobacco use Obstructive sleep apnea History of ulmonary embolism on Xarelto PLAN Acute coronary syndrome has been ruled out, patient symptoms do not appear to be acute ischemia and no evidence of acute heart failure on exam. Echocardiogram with improved EF 60-65% Continue home cardiac medications No further changes at this time. Further recommendations based on clinical course Nurse practitioner note has been reviewed by physician. Signing provider agrees with the documented findings, assessment, and plan of care. Objective - Vital Signs Vital signs: Vital Signs Temp 98.3 F 03/07/22 07:00 Pulse 77 03/07/22 07:00 Resp 15 03/07/22 07:00 BP 115/70 03/07/22 07:00 Pulse Ox 100 03/07/22 07:00 FiO2 Intake & Output 03/06/22 03/07/22 03/07/22 18:59 06:59 18:59 Intake Total 240 Balance 240 Intake: Oral 240 Other: Voiding Method Toilet # Voids 2 2 - Labs CBC & Chem 7: 03/07/22 05:44 03/06/22 05:39 Labs: Abnormal Lab Results - Last 24 Hours (Table) 03/06/22 03/06/22 03/07/22 Range/Units 05:39 05:39 05:44 WBC 11.42 H 12.67 H (4.50-10.00) X 10*3/uL Hgb 11.8 L 11.3 L (12.0-15.0) g/dL Hct 35.9 L 35.3 L (37.2-46.3) % MCH 26.8 L 26.8 L (27.0-32.0) pg RDW 16.7 H 17.2 H (11.5-14.5) % Immature Gran # 0.08 H 0.10 H (0.00-0.04) X 10*3/uL Neutrophils # 10.45 H 10.61 H (1.80-7.70) X 10*3/uL Lymphocytes # 0.76 L (0.90-5.00) X 10*3/uL Monocytes # 0.13 L (0.20-1.00) X 10*3/uL Eosinophils # 0 L 0.02 L (0.04-0.35) X 10*3/uL Est GFR (CKD-EPI)NonAf 59.9 L (60.0-200.0) BUN/Creatinine Ratio 11.40 L (12.00-20.00) Ratio Glucose 149 H (70-110) mg/dL Phosphorus 5.2 H (2.4-5.1) mg/dL
[2022-03-07 09:27] LABS: African American GFR (CKD) 90.9 (60.0-200.0); Albumin 3.3 g/dL (3.8-4.9); Albumin/Globulin Ratio 0.97 (1.60-3.17); BUN/Creat Ratio 17.75 Ratio (12.00-20.00); Blood Urea Nitrogen 14.2 mg/dL (9.0-27.0); Calcium 9.4 mg/dL (8.7-10.3); Globulin 3.4 g/dL (1.6-3.3); Magnesium 2.1 mg/dL (1.5-2.4); Non-African American GFR(CKD) 78.5 (60.0-200.0); Potassium 4.1 mmol/L (3.5-5.5); Total Bilirubin 0.3 mg/dL (0.30-1.20); Total Protein 6.7 g/dL (6.2-8.2)
[2022-03-07] MEDS: lisinopriL 10 MG TAB PO SCH (10:24)
[2022-03-07] MEDS: SERTRALINE 50 MG TAB PO SCH (10:24)
[2022-03-07] MEDS: FUROSEMIDE 20 MG TAB PO SCH (10:24)
[2022-03-07] MEDS: PANTOPRAZOLE 40 MG/10 ML VIAL IVP SCH (10:24)
[2022-03-07] MEDS: METOPROLOL SUCCINATE (ER) 100 MG TAB.ER.24H PO SCH (10:24)
[2022-03-07] MEDS: ATORVASTATIN 40 MG TAB PO SCH (10:24)
[2022-03-07] MEDS: LORATADINE 10 MG TAB PO SCH (10:24)
[2022-03-07] MEDS: FLUTICASONE 50MCG/SPRAY NASAL 16GM EA NOSTRIL SCH (10:25)
[2022-03-07] MEDS: SPIRONOLACTONE 25 MG TAB PO SCH (10:25)
[2022-03-07] MEDS ORDERED: PROPOFOL 10 MG/ML 20 ML VIAL IV ONE (11:39)
[2022-03-07] MEDS ORDERED: LIDOCAINE 2% INJ 20 MG/ML (2 ML VIAL) ONE (11:39)
[2022-03-07] MEDS ORDERED: LACTATED RINGERS 1,000 ML IV ONE (11:43)
--- NOTE | 2022-03-07 11:50 | P.OP ---
Date of Procedure: 03/07/22 Preoperative Diagnosis: Nausea Postoperative Diagnosis: Antral gastritis Small hiatal hernia Procedure(s) Performed: EGD Anesthesia: MAC Surgeon: Ramsey Mcmahon Pathology: other (Antrum) Condition: stable Disposition: PACU Description of Procedure: The patient's placed on the endoscopy table in the lateral position. She received IV sedation. The gastroscope placed oropharynx passed in the esophagus into the stomach. Scope was then placed through the pylorus. The first and second portion of the duodenum appeared normal. Scope was then brought back the antrum and this appeared mildly inflamed. A biopsies performed. The scope was then retroflexed and remainder the stomach appeared normal. There was a very small hiatal hernia. The distal esophagus appeared normal. The GE junction was at 40 cm. The proximal esophagus appeared normal. Scope withdrawn for patient. There is no evidence of any gastric outlet obstruction to account for the patient's nausea. Patient did have some mild gastritis.
[2022-03-07] MEDS: LACTATED RINGERS 1,000 ML IV SCH (13:10)
[2022-03-07] MEDS: HYDROcodone/APAP 5-325MG 1 EACH TAB PO PRN (16:18)
--- NOTE | 2022-03-07 16:43 | P.PN ---
Subjective Patient seen and examined at bedside. Patient is currently nothing by mouth. Patient continues to have abdominal pain. Patient denies nausea vomiting at this time. Patient scheduled for an EGD at 12 or 12:30 today. Objective - Vital Signs Vital signs: Vital Signs Temp 97.7 F 03/07/22 14:29 Pulse 80 03/07/22 14:29 Resp 16 03/07/22 14:29 BP 91/53 03/07/22 14:29 Pulse Ox 97 03/07/22 14:29 FiO2 Intake & Output 03/06/22 03/07/22 03/07/22 18:59 06:59 18:59 Intake Total 240 168 Balance 240 168 Intake: IV 50 Oral 240 118 Other: Voiding Method Toilet # Voids 2 2 - Exam General: [non toxic], [no distress], [appears at stated age] Derm: [warm], [dry] Head: [atraumatic], [normocephalic], [symmetric] Eyes: [EOMI], [no lid lag], [anicteric sclera] Mouth: [no lip lesion], [mucus membranes moist] Cardiovascular: [S1S2 reg], [no murmur], [positive posterior tibial pulse bilateral], Lungs: [CTA bilateral], [no rhonchi, no rales] , [no accessory muscle use] Abdominal: [soft], [ epigastric tenderness to palpation], [no guarding], [no appreciable organomegaly] Ext: [no gross muscle atrophy], [no edema], [no contractures] Neuro: [ CN II-XI grossly intact], [no focal neuro deficits] Psych: [Alert], [oriented], [appropriate affect - Labs CBC & Chem 7: 03/07/22 05:44 03/07/22 05:44 Labs: Abnormal Lab Results - Last 24 Hours (Table) 03/07/22 03/07/22 Range/Units 05:44 05:44 WBC 12.67 H (4.50-10.00) X 10*3/uL Hgb 11.3 L (12.0-15.0) g/dL Hct 35.3 L (37.2-46.3) % MCH 26.8 L (27.0-32.0) pg RDW 17.2 H (11.5-14.5) % Immature Gran # 0.10 H (0.00-0.04) X 10*3/uL Neutrophils # 10.61 H (1.80-7.70) X 10*3/uL Eosinophils # 0.02 L (0.04-0.35) X 10*3/uL Glucose 112 H (70-110) mg/dL Alkaline Phosphatase 166 H (41-126) U/L Albumin 3.3 L (3.8-4.9) g/dL Globulin 3.4 H (1.6-3.3) g/dL Albumin/Globulin Ratio 0.97 L (1.60-3.17) g/dL Assessment and Plan Assessment: Hypoxia with anginal equivalent Repeat echocardiogram cardiogram reveals an ejection fraction 60-65% -trops x 2 negative -Cardiology rcs appreciated -pulmonary recs appreciated - tele - AICD interrogiation - resume lisinopril, metorpolol, lasix, lipitor - start ASA lactic acid - undetermined etiology - improved without IV fluids Abdominal pain with seroma and recent liver met removal Colon/rectal CA- not on chemo intractable vomiting - surgery recs for EGD today - PPI - pain control - outpatinet follow-up with oncologist - awiat records from [facility] Sinusitis - flonase - claritin Chronic: HTN HLD Hx DVT Colon/rectal cnacer The patient is admitted with an anticipated less than 2 midnight stay for evaluation of shortness of breath. Surrogate decision-maker: Son CODE STATUS:DNR DVT prophylaxis: Xarelto Discussed with: patient, nursing Anticipated discharge date: in 1-[address]: home
[2022-03-07] MEDS: ZOLPIDEM 5 MG TAB PO SCH (22:13)
[2022-03-07] MEDS: traZODone HCL 100 MG TAB PO SCH (22:14)
[2022-03-07] MEDS: LATANOPROST 0.005% OPHTH DROPS 2.5 ML BTL BOTH EYES SCH (22:26)
[2022-03-07] MEDS ORDERED: SODIUM CHLORIDE 0.9% 1,000 ML IV ONE (22:27)
[2022-03-08] MEDS: FLUTICASONE 50MCG/SPRAY NASAL 16GM EA NOSTRIL SCH (08:31)
[2022-03-08] MEDS: lisinopriL 10 MG TAB PO SCH (08:32)
[2022-03-08] MEDS: PANTOPRAZOLE 40 MG/10 ML VIAL IVP SCH (08:32)
[2022-03-08] MEDS: METOPROLOL SUCCINATE (ER) 100 MG TAB.ER.24H PO SCH (08:32)
[2022-03-08] MEDS: LORATADINE 10 MG TAB PO SCH (08:32)
[2022-03-08] MEDS: SERTRALINE 50 MG TAB PO SCH (08:33)
[2022-03-08] MEDS: SPIRONOLACTONE 25 MG TAB PO SCH (08:33)
[2022-03-08] MEDS: FUROSEMIDE 20 MG TAB PO SCH (08:33)
[2022-03-08] MEDS: ATORVASTATIN 40 MG TAB PO SCH (08:34)
--- NOTE | 2022-03-08 08:44 | P.PN ---
Subjective Progress Note Date: 03/08/22 CHIEF COMPLAINT: Nausea and vomiting HISTORY OF PRESENT ILLNESS: Patient is status post EGD with antral gastritis and small hiatal hernia. Patient sitting up in bed comfortably. She is just starting her breakfast. As of now no nausea or vomiting. No abdominal pain. Currently on a regular diet. Morning labs pending. Patient seen and examined with Dr. grewal PHYSICAL EXAM: VITAL SIGNS: Reviewed. GENERAL: Well-developed in no acute distress. HEENT: No sclera icterus. Extraocular movements grossly intact. Moist buccal mucosa. Head is atraumatic, normocephalic. ABDOMEN: Soft. Nondistended. NEUROLOGIC: Alert and oriented. Cranial nerves II through XII grossly intact. ASSESSMENT: 1. Nausea vomiting and epigastric tenderness status post EGD with antral gastritis and small hiatal hernia 2. Right hepatic lobe fluid collection likely due to seroma PLAN: -Patient is stable from surgical standpoint for discharge when medically cleared -Okay to resume Xarelto from surgical standpoint -Continue Protonix Physician Mitten Sewer note has been reviewed by physician. Signing provider agrees with the documented findings, assessment, and plan of care. Objective - Vital Signs Vital signs: Vital Signs Temp 98.1 F 03/08/22 02:47 Pulse 73 03/08/22 02:47 Resp 17 03/08/22 02:47 BP 101/67 03/08/22 02:47 Pulse Ox 94 L 03/08/22 02:47 FiO2 Intake & Output 03/07/22 03/08/22 03/08/22 18:59 06:59 18:59 Intake Total 168 1000 Output Total 0 Balance 168 1000 Intake: IV 50 1000 Sodium Chloride 0.9% 1, 1000 000 ml @ 999 mls/hr IV . Q1H1M ONE Rx#:[id number] Oral 118 Output: Emesis 0 Other: Voiding Method Toilet # Voids 2 - Labs CBC & Chem 7: 03/07/22 05:44 03/07/22 05:44 Labs: Abnormal Lab Results - Last 24 Hours (Table) 03/07/22 03/07/22 Range/Units 05:44 05:44 WBC 12.67 H (4.50-10.00) X 10*3/uL Hgb 11.3 L (12.0-15.0) g/dL Hct 35.3 L (37.2-46.3) % MCH 26.8 L (27.0-32.0) pg RDW 17.2 H (11.5-14.5) % Immature Gran # 0.10 H (0.00-0.04) X 10*3/uL Neutrophils # 10.61 H (1.80-7.70) X 10*3/uL Eosinophils # 0.02 L (0.04-0.35) X 10*3/uL Glucose 112 H (70-110) mg/dL Alkaline Phosphatase 166 H (41-126) U/L Albumin 3.3 L (3.8-4.9) g/dL Globulin 3.4 H (1.6-3.3) g/dL Albumin/Globulin Ratio 0.97 L (1.60-3.17) g/dL
--- NOTE | 2022-03-08 09:38 | P.PN ---
Subjective This is a pleasant 61-year-old female past medical history of nonischemic cardiomyopathy, status post biventricular ICD 04/2020, normal coronary arteries (by cardiac catheterization 03/2020), severe mitral regurgitation, hypertension, dyslipidemia, peripheral vascular disease, former tobacco use, rectal carcinoid tumor status post removal in 2009 at [facility], liver mass with possible metastatic neuroendocrine tumor 12/2020, status post partial resection of liver at [facility] November 2021, obstructive sleep apnea, chronic heart failure with reduced ejection fraction, pulmonary embolism on Xarelto. She follows with Dr. Beal. We are being consulted for possible anginal equilivant. Patient presents to the ER with complaints of worsening shortness of breath, decreased PO intake, fatigue, nausea, vomiting. She states that this has been gradually worsening since her surgery. She was hypoxic vis EMS with 89% on room air and was transpo rted to ER for further evaluation. She denies any palpitations, symptoms of orthopnea or PND. Her shortness of breath occurs with activity. She denies any chest pain. DIAGNOSTICS * CTA with no evidence of pulmonary embolism, stable pulmonary nodules with prior exam. Heart is within normal limits, no pericardial effusion. * Cardiac catheterization 03/2020 revealed normal coronary arteries, severely impaired left ventricular systolic function with 4+ mitral regurgitation. * Echocardiogram 07/31/2020 in the office revealed EF of 3540 percent, severe mitral regurgitation, mild to moderate tricuspid regurgitation, PASP 39mmHg 03/08 Patient seen and examined at bedside, no acute distress. She states that her symptoms have actually improved. She denies any chest pain or shortness of breath. Did have episodes of hypotension yesterday, which has improved after given 1L bolus of IV fluids. She underwent EGD surgery yesterday that revealed mild gastritis. Echocardiogram reported EF of 6065 %, structurally normal mitral valve, no mitral stenosis, no regurgitation or prolapse PHYSICAL EXAMINATION Blood pressure 107/71, heart rate 74, afebrile, saturations 99% on room air CONSTITUTIONAL: No apparent distress. HEENT: Neck Supple. No JVD. CHEST EXAMINATION: Lungs are clear to auscultation. No chest wall tenderness is noted on palpation or with deep breathing. HEART EXAMINATION: Regular rate and rhythm. S1, S2 heard. Systolic ejection murmur at apex. ABDOMEN: Soft, nontender. Positive bowel sounds. EXTREMITIES: 2+ peripheral pulses, no lower extremity edema and no calf tendern ess. NEUROLOGIC EXAMINATION: Patient is awake, alert and oriented x3. ASSESSMENT Shortness of breath, hypoxia, unclear etiology at this time Abdominal pain, nausea vomiting Symptoms of generalized fatigue, decreased PO intake, decreased appetite. Elevated d-dimer, CTA with no evidence of pulmonary embolism Chronic heart failure with reduced ejection fraction, improved ejection fracture Rectal carcinoid tumor status post removal in 2009 at [facility], liver mass with possible metastatic neuroendocrine tumor 12/2020, status post partial resection of liver at [facility] November 2021 Nonischemic cardiomyopathy Severe mitral regurgitation, patient euvolemic on exam Status post biventricular ICD 04/2020 Hypertension Dyslipidemia Peripheral vascular disease Former tobacco use Obstructive sleep apnea History of ulmonary embolism on Xarelto PLAN Acute coronary syndrome has been ruled out, patient symptoms do not appear to be acute ischemia and no evidence of acute heart failure on exam. Echocardiogram with improved EF 60-65% Continue home cardiac medications Per surgery, ok to restart Xarelto today No further changes at this time. Further recommendations based on clinical course Nurse practitioner note has been reviewed by physician. Signing provider agrees with the documented findings, assessment, and plan of care. Objective - Vital Signs Vital signs: Vital Signs Temp 97.8 F 03/08/22 07:00 Pulse 74 03/08/22 07:00 Resp 18 03/08/22 07:00 BP 107/71 03/08/22 07:00 Pulse Ox 99 03/08/22 07:00 FiO2 Intake & Output 03/07/22 03/08/22 03/08/22 18:59 06:59 18:59 Intake Total 168 1000 Output Total 0 Balance 168 1000 Intake: IV 50 1000 Sodium Chloride 0.9% 1, 1000 000 ml @ 999 mls/hr IV . Q1H1M ONE Rx#:[id number] Oral 118 Output: Emesis 0 Other: Voiding Method Toilet # Voids 2 - Labs CBC & Chem 7: 03/07/22 05:44 03/07/22 05:44
[2022-03-08 10:52] LABS: Basophils # (A) 0.02 X 10*3/uL (0.00-0.10); Basophils % (A) 0.2 %; Eosinophils # (A) 0.04 X 10*3/uL (0.04-0.35); Eosinophils % (A) 0.5 %; HCT 33.1 % (37.2-46.3); HGB 10.7 g/dL (12.0-15.0); Immature Grans, Automated 0.8 %; Lymphocytes % (A) 14.3 %; MCH 26.7 pg (27.0-32.0); MCHC 32.3 g/dL (32.0-37.0); MCV 82.5 fL (80.0-97.0); Mean Platelet Volume 9.4 fL (9.5-12.2); Monocytes % (A) 7.2 %; NRBC Per 100 WBC 0 /100 WBCS (0.0-0.0); Neutrophils # (A) 6.44 X 10*3/uL (1.80-7.70); Platelet Count 342 X 10*3/uL (140-440); RBC 4.01 X 10*6/uL (4.10-5.20); WBC 8.37 X 10*3/uL (4.50-10.00)
[2022-03-08 11:12] LABS: African American GFR (CKD) 106.9 (60.0-200.0); Albumin 2.9 g/dL (3.8-4.9); Albumin/Globulin Ratio 0.97 (1.60-3.17); Anion Gap 10.1 mmol/L (10.00-18.00); BUN/Creat Ratio 15.43 Ratio (12.00-20.00); Blood Urea Nitrogen 10.8 mg/dL (9.0-27.0); Calcium 8.9 mg/dL (8.7-10.3); Carbon Dioxide 25.9 mmol/L (20.0-27.5); Non-African American GFR(CKD) 92.2 (60.0-200.0); Total Bilirubin 0.2 mg/dL (0.30-1.20); Total Protein 5.9 g/dL (6.2-8.2)
[2022-03-08] MEDS: LACTATED RINGERS 1,000 ML IV SCH ×2 (13:59→22:19)
[2022-03-08 14:08] LABS: Appearance,Urine Clear (Clear); Bilirubin,Urine Negative (Negative); Blood,Urine Negative (Negative); Color,Urine Colorless; Glucose,Urine (UA) Negative (Negative); Ketones,Urine Negative (Negative); Leukocyte Esterase,Urine Negative (Negative); Nitrite,Urine Negative (Negative); PH, Urine 7.5 (5.0-8.0); Protein,Urine Negative (Negative); Specific Gravity,Urine 1.004 (1.001-1.035); Urobilinogen,Urine <2.0 mg/dL (<2.0)
[2022-03-08] MEDS ORDERED: SODIUM CHLORIDE 0.9% 1,000 ML IV ONE (15:39)
[2022-03-08] MEDS ORDERED: RIVAROXABAN 20 MG TAB PO SCH (17:30)
[2022-03-08] MEDS: ZOLPIDEM 5 MG TAB PO SCH (22:15)
[2022-03-08] MEDS: LATANOPROST 0.005% OPHTH DROPS 2.5 ML BTL BOTH EYES SCH (22:16)
[2022-03-08] MEDS: traZODone HCL 100 MG TAB PO SCH (22:17)
[2022-03-08] MEDS: HYDROcodone/APAP 5-325MG 1 EACH TAB PO PRN (22:53)
[2022-03-09 07:43] VITALS: BP 119/71; PULSE 60; RESP 15; TEMP 97.7
[2022-03-09] MEDS: SERTRALINE 50 MG TAB PO SCH (08:39)
[2022-03-09] MEDS: LORATADINE 10 MG TAB PO SCH (08:39)
[2022-03-09] MEDS: PANTOPRAZOLE 40 MG/10 ML VIAL IVP SCH (08:39)
[2022-03-09] MEDS: ATORVASTATIN 40 MG TAB PO SCH (08:40)
[2022-03-09] MEDS: FLUTICASONE 50MCG/SPRAY NASAL 16GM EA NOSTRIL SCH (08:40)
[2022-03-09] MEDS ORDERED: METOPROLOL SUCCINATE (ER) 25 MG TAB.ER.24H PO SCH ×2 (09:00)
[2022-03-09] MEDS: HYDROcodone/APAP 5-325MG 1 EACH TAB PO PRN (09:09)
--- NOTE | 2022-03-09 11:52 | P.DS ---
Providers Date of admission: 03/05/22 15:02 Expected date of discharge: 03/09/22 Attending physician: Yamilex Mccoy MD Consults: 03/05/22 15:02 Consult Physician Urgent Consulting Provider: Emeka Webster Consult Reason/Comments: hypoxic resp failure Do you want consulting provider notified?: Yes 03/05/22 18:18 Consult Physician Routine Consulting Provider: Ramsey Mcmahon Consult Reason/Comments: intractable nausea and vomiting Do you want consulting provider notified?: Yes Consult Physician Routine Consulting Provider: Jamilah Beal Consult Reason/Comments: anginal equilivant Do you want consulting provider notified?: Yes Primary care physician: Charlie Thomas [facility] Course: Admitting diagnoses: Hypoxia Discharge diagnoses: Hypoxia resolved Abdominal pain with seroma and recent liver met removal Sinusitis HTN HLD Hx DVT Colon/rectal cnacer in remission intractable vomiting resolved Hospital course Patient is a 61-year-old female with multiple medical comorbidities including systolic chf with EF < 20 % s/p AICD, colorectal cancer with liver metastases treated previously, pulmonary embolism, and significant tobacco abuse who presented to the hospital with complaints of shortness of breath. In the ER she underwent an extensive evaluation. She was satting 100% on 2 L nasal cannula, however reported that she was 89% on room air on EMS evaluation. She underwent a CTA of the chest due to elevated d-dimer. This demonstrated no evidence of pulmonary embolism but did show stable pulmonary nodules. She also underwent a CT abdomen and pelvis which showed post surgical changes in the right hepatic lobe with a 5.5 cm fluid collection at the resection site considering abscess versus seroma. Laboratory analysis was remarkable for white blood cell count 11.1, d-dimer 2.48, sodium 133, lactic acid 2.6. COVID and influenza testing were negative. The ER she was given a dose of Ativan, Solu-Medrol, and bronchodilators. She was placed in observation for unknown cause of hypoxemia. Patient seen and examined at bedside. She initially complains of nausea and vomiting when I walk in the room. She states she's been having vomiting and has been unable to tolerate any oral intake since November when she had her liver tumor resected. She has not followed up with her surgeon other than her first postop follow-up, she states she did not mention it done. She states she has mentioned it to her primary who has not done anything about it. She is concerned about having enough energy. I then asked her why she presented to the hospital as I had been told she was having difficulty with shortness of breath. She states the reason she did present to the hospital she went to see her sister today and became very short of breath and had to sit down and her sister activated EMS. Her primary concern for this hospital stay is her shortness of breath however she has multiple other concerns including her persistent nausea, vomiting, and abdominal pain since surgery. She reports that she gets winded every time she walks. She then starts to feel very weak and like she will fall, and then she becomes slightly dizzy. She denies any chest pain. She denies any palpitations. She is unable to tell me if this occurs every time she walks only with long distances, but it does occur when she goes down the stairs. She states she has not seen Dr. Beal her primary security and privacy consultant for this. She states she last saw him 3 months ago but she is unsure what medication changes he recommended if any at that time. She denies any wheezing or cough. She admits to sore throat, runny nose, stuffy nose, and post nanasl gtt, she has these chorinc and is miserable from them but does not take any medications for them. She is not currently getting chemotherapy but she does follow with Dr. Reyna from [facility]. She has not seen him recently and is due for follow-up in March. Physical exam: General: [non toxic], [no distress], [appears at stated age] Derm: [warm], [dry] Head: [atraumatic], [normocephalic], [symmetric] Eyes: [EOMI], [no lid lag], [anicteric sclera] Mouth: [no lip lesion], [mucus membranes moist] Cardiovascular: [S1S2 reg], [no murmur], [positive posterior tibial pulse bilateral], Lungs: [CTA bilateral], [no rhonchi, no rales] , [no accessory muscle use] Abdominal: [soft], [ nontender to palpation], [no guarding], [no appreciable organomegaly] Ext: [no gross muscle atrophy], [no edema], [no contractures] Neuro: [ CN II-XI grossly intact], [no focal neuro deficits] Psych: [Alert], [oriented], [appropriate affect] Clinical course: Hypoxia with anginal equivalent Repeat echocardiogram cardiogram reveals an ejection fraction 60-65% -trops x 2 negative -Cardiology followed -pulmonary followed - tele - AICD interrogiation - resume lisinopril, metorpolol, lasix, lipitor - start ASA lactic acid - undetermined etiology - improved without IV fluids Abdominal pain with seroma and recent liver met removal Colon/rectal CA- not on chemo intractable vomiting - surgery recs for EGD negative for acute process - PPI - pain control - outpatinet follow-up with oncologist Sinusitis - flonase - claritin Chronic: HTN HLD Hx DVT Colon/rectal cnacer Disposition: Home with home care Activity: Activity as tolerated Diet: Cardiac Condition fair Follow-up with PCP in 2-3 days Patient Condition at Discharge: Fair Patient Condition at Discharge: Fair Plan - Discharge Summary Discharge Rx Participant: Yes New Discharge Prescriptions: Continue traZODone HCL [Desyrel] 100 mg PO HS Zolpidem [Ambien] 10 mg PO HS Timolol 0.5% Ophth Soln [Timoptic 0.5% Ophth Soln] 1 drop BOTH EYES BID Rivaroxaban [Xarelto] 20 mg PO DAILY Atorvastatin [Lipitor] 40 mg PO DAILY Spironolactone [Aldactone] 25 mg PO DAILY #30 tab Sertraline [Zoloft] 50 mg PO DAILY Ondansetron [Zofran] 4 mg PO Q6H PRN PRN Reason: Nausea Omeprazole 40 mg PO DAILY lisinopriL [Prinivil] 10 mg PO DAILY Nitroglycerin Sl Tabs [Nitrostat] 0.4 mg SL Q5M PRN PRN Reason: Chest Pain Metoprolol Succinate (ER) [Toprol XL] 100 mg PO DAILY Furosemide [Lasix] 20 mg PO DAILY dronabinoL [Marinol] 5 mg PO AC-BID ALPRAZolam [Xanax] 0.25 mg PO BID PRN PRN Reason: Anxiety Acyclovir [Zovirax] 1 applic TOPICAL Q3H PRN PRN Reason: first sign traMADol HCl [Ultram] 50 - 100 mg PO QID PRN PRN Reason: Pain Sennosides/Docusate Sodium [Senna Plus 8.6-50 mg Tablet] 2 tab PO HS PRN PRN Reason: Constipation Latanoprost/Pf [Latanoprost 0.005% Eye Drop] 1 drop BOTH EYES HS Discharge Medication List Rivaroxaban [Xarelto] 20 mg PO DAILY 12/14/15 [History] Timolol 0.5% Ophth Soln [Timoptic 0.5% Ophth Soln] 1 drop BOTH EYES BID 12/14/15 [History] Zolpidem [Ambien] 10 mg PO HS 12/14/15 [History] traZODone HCL [Desyrel] 100 mg PO HS 12/14/15 [History] Atorvastatin [Lipitor] 40 mg PO DAILY 05/21/17 [History] Spironolactone [Aldactone] 25 mg PO DAILY #30 tab 03/19/20 [Rx] ALPRAZolam [Xanax] 0.25 mg PO BID PRN 03/05/22 [History] Acyclovir [Zovirax] 1 applic TOPICAL Q3H PRN 03/05/22 [History] Furosemide [Lasix] 20 mg PO DAILY 03/05/22 [History] Latanoprost/Pf [Latanoprost 0.005% Eye Drop] 1 drop BOTH EYES HS 03/05/22 [History] Metoprolol Succinate (ER) [Toprol XL] 100 mg PO DAILY 03/05/22 [History] Nitroglycerin Sl Tabs [Nitrostat] 0.4 mg SL Q5M PRN 03/05/22 [History] Omeprazole 40 mg PO DAILY 03/05/22 [History] Ondansetron [Zofran] 4 mg PO Q6H PRN 03/05/22 [History] Sennosides/Docusate Sodium [Senna Plus 8.6-50 mg Tablet] 2 tab PO HS PRN 03/05/22 [History] Sertraline [Zoloft] 50 mg PO DAILY 03/05/22 [History] dronabinoL [Marinol] 5 mg PO AC-BID 03/05/22 [History] lisinopriL [Prinivil] 10 mg PO DAILY 03/05/22 [History] traMADol HCl [Ultram] 50 - 100 mg PO QID PRN 03/05/22 [History] Follow up Appointment(s)/Referral(s): None,Stated [REFERRING] - 1-2 days Discharge Disposition: HOME WITH HOME HEALTH SERVICES
--- NOTE | 2022-03-09 12:20 | P.PN ---
Subjective Progress Note Date: 03/09/22 Principal diagnosis: Nausea vomiting Patient doing better today. Underwent EGD. Her nausea and vomiting has improved. No pain. Objective - Vital Signs Vital signs: Vital Signs Temp 97.7 F 03/09/22 07:00 Pulse 60 03/09/22 07:00 Resp 15 03/09/22 07:00 BP 119/71 03/09/22 07:00 Pulse Ox 99 03/09/22 07:00 FiO2 Intake & Output 03/08/22 03/09/22 03/09/22 18:59 06:59 18:59 Intake Total 118 Balance 118 Intake: Oral 118 Other: Voiding Method Toilet # Voids 2 1 1 - Exam Abdomen: Soft, nontender, nondistended - Labs CBC & Chem 7: 03/08/22 07:00 03/08/22 07:00 Assessment and Plan (1) Vomiting Narrative/Plan: Patient doing well today. Continue diet as tolerated. Possible discharge per primary service. Current Visit: Yes Status: Acute Code(s): R11.10 - VOMITING, UNSPECIFIED SNOMED Code(s): 832163226
--- NOTE | 2022-03-09 14:32 | P.PN ---
Subjective Progress Note Date: 03/09/22 This is a pleasant 61-year-old female past medical history of nonischemic cardiomyopathy, status post biventricular ICD 04/2020, normal coronary arteries (by cardiac catheterization 03/2020), severe mitral regurgitation, hypertension, dyslipidemia, peripheral vascular disease, former tobacco use, rectal carcinoid tumor status post removal in 2009 at [facility], liver mass with possible metastatic neuroendocrine tumor 12/2020, status post partial resection of liver at [facility] November 2021, obstructive sleep apnea, chronic heart failure with reduced ejection fraction, pulmonary embolism on Xarelto. She follows with Dr. Beal. We are being consulted for possible anginal equilivant. Patient presents to the ER with complaints of worsening shortness of breath, decreased PO intake, fatigue, nausea, vomiting. She states that this has been gradually worsening since her surgery. She was hypoxic vis EMS with 89% on room air and was transported to ER for further evaluation. She denies any palpitations, symptoms of orthopnea or PND. Her shortness of breath occurs with activity. She denies any chest pain. DIAGNOSTICS * CTA with no evidence of pulmonary embolism, stable pulmonary nodules with pr ior exam. Heart is within normal limits, no pericardial effusion. * Cardiac catheterization 03/2020 revealed normal coronary arteries, severely impaired left ventricular systolic function with 4+ mitral regurgitation. * Echocardiogram reported an ejection fraction of 60-65%, structurally normal mitral valve, no mitral stenosis and no regurgitation or prolapse. * EGD revealed mild gastritis * 03/09/2022 She was seen and examined resting comfortably in bed. Overall she says she's feeling better. Her breathing has improved. She's had no chest discomfort. Blood pressure has been stable after receiving a fluid bolus 2 days ago. Objective - Vital Signs Vital signs: Vital Signs Temp 97.7 F 03/09/22 07:00 Pulse 60 03/09/22 07:00 Resp 15 03/09/22 07:00 BP 119/71 03/09/22 07:00 Pulse Ox 99 03/09/22 07:00 FiO2 Intake & Output 03/08/22 03/09/22 03/09/22 18:59 06:59 18:59 Intake Total 118 Balance 118 Intake: Oral 118 Other: Voiding Method Toilet # Voids 2 1 1 - Exam CONSTITUTIONAL: No apparent distress. HEENT: Neck Supple. No JVD. CHEST EXAMINATION: Lungs are clear to auscultation. No chest wall tenderness is noted on palpation or with deep breathing. HEART EXAMINATION: Regular rate and rhythm. S1, S2 heard. Systolic ejection murmur at apex. ABDOMEN: Soft, nontender. Positive bowel sounds. EXTREMITIES: 2+ peripheral pulses, no lower extremity edema and no calf tenderness. NEUROLOGIC EXAMINATION: Patient is awake, alert and oriented x3. - Labs CBC & Chem 7: 03/08/22 07:00 03/08/22 07:00 Assessment and Plan Assessment: Shortness of breath, hypoxia, unclear etiology at this time Abdominal pain, nausea vomiting Symptoms of generalized fatigue, decreased PO intake, decreased appetite. Elevated d-dimer, CTA with no evidence of pulmonary embolism Chronic heart failure with reduced ejection fraction, improved ejection fracture Rectal carcinoid tumor status post removal in 2009 at [facility], liver mass with possible metastatic neuroendocrine tumor 12/2020, status post partial resection of liver at [facility] November 2021 Nonischemic cardiomyopathy Severe mitral regurgitation, patient euvolemic on exam Status post biventricular ICD 04/2020 Hypertension Dyslipidemia Peripheral vascular disease Former tobacco use Obstructive sleep apnea History of ulmonary embolism on Xarelto Plan: From cardiology perspective medications were reviewed and we will continue the same. From our standpoint patient may be discharged home and follow-up as an outpatient. NREMT note has been reviewed, I agree with a documented findings and plan of care. Patient was seen and examined.
== END 2022-03-09 14:46 | disposition home health service (06) ==
LOC: EC 12:26 → 6NMEDSUR 15:02
PROVIDERS: ADMIT Internal Medicine; ATTEND Internal Medicine
DX: K29.70 Gastritis, unspecified, without bleeding (principal); K44.9 Diaphragmatic hernia without obstruction or gangrene; J96.91 Respiratory failure, unspecified with hypoxia; I95.9 Hypotension, unspecified; R79.89 Other specified abnormal findings of blood chemistry; K59.09 Other constipation; E83.42 Hypomagnesemia; J32.9 Chronic sinusitis, unspecified; I11.0 Hypertensive heart disease with heart failure; I50.22 Chronic systolic (congestive) heart failure; I25.10 Atherosclerotic heart disease of native coronary artery without angina pectoris; K21.9 Gastro-esophageal reflux disease without esophagitis; E78.5 Hyperlipidemia, unspecified; G47.30 Sleep apnea, unspecified; F41.9 Anxiety disorder, unspecified; G47.33 Obstructive sleep apnea (adult) (pediatric); I08.1 Rheumatic disorders of both mitral and tricuspid valves; J44.9 Chronic obstructive pulmonary disease, unspecified; F32.A Depression, unspecified; M15.9 Polyosteoarthritis, unspecified; F51.04 Psychophysiologic insomnia; H54.61 Unqualified visual loss, right eye, normal vision left eye; H40.9 Unspecified glaucoma; R63.4 Abnormal weight loss; I42.8 Other cardiomyopathies; I73.9 Peripheral vascular disease, unspecified; Z85.048 Personal history of other malignant neoplasm of rectum, rectosigmoid junction, and anus; Z85.05 Personal history of malignant neoplasm of liver; Z86.711 Personal history of pulmonary embolism; Z86.718 Personal history of other venous thrombosis and embolism; Z87.891 Personal history of nicotine dependence; Z95.810 Presence of automatic (implantable) cardiac defibrillator; Z79.01 Long term (current) use of anticoagulants; Z79.899 Other long term (current) drug therapy; Z80.1 Family history of malignant neoplasm of trachea, bronchus and lung; Z82.3 Family history of stroke; Z82.49 Family history of ischemic heart disease and other diseases of the circulatory system; Z83.2 Family history of diseases of the blood and blood-forming organs and certain disorders involving the immune mechanism; Z83.3 Family history of diabetes mellitus; Z20.822 Contact with and (suspected) exposure to COVID-19
CPT/HCPCS: 96365; 96375 ×2; 96376 ×2; 99285; 36415; 93005; 93306; 97162; 97166; 85379; 88305; 83880; 80053 ×3; 80048; 83605; 83735 ×2; 84100; 84484; 85025 ×4; 85610; 85730; 81003; 87502; 87635; 71275; 74177; 43239; G0378 ×5; J0780; J2930; Q0167 ×4; J3475; C9113 ×5; Q9967

== ENCOUNTER → 2022-05-31 | Outpatient (CLI) | payer MEDICARE, OTHER ==
--- NOTE | 2022-06-03 15:44 | MM ---
Reason for Exam: Screening (asymptomatic). Last mammogram was performed 2 year(s) and 2 month(s) ago. Patient History: Menarche at age 8. First Full-Term at age 16. Hysterectomy at age 46. Postmenopausal. Patient has history of breast feeding. Previous chemotherapy at age 61. Risk Values: Sunshine 5 year model risk: 1.3%. NCI Lifetime model risk: 5.2%. Prior Study Comparison: 12/31/2017 Bilateral Screening Mammogram, [facility]. 03/11/2019 Bilateral Screening Mammogram, [facility]. 03/23/2020 Bilateral Screening Mammogram, [facility]. Tissue Density: There are scattered fibroglandular densities. Findings: Analyzed By CAD. Pattern appears symmetrical and stable. Scattered benign-appearing calcifications are within the left breast benign vascular calcifications present bilaterally. Pacemaker overlies left breast No suspicious groups of microcalcifications, spiculated or lobular masses, architectural distortion or other secondary signs of malignancy are mammographically apparent. Overall Assessment: Benign, BI-RAD 2 Management: Screening Mammogram of both breasts in 1 year. A negative mammogram report should not preclude additional follow up of suspicious palpable abnormalities. Patient should continue monthly self breast exam. A clinical breast exam by your physician is recommended on an annual basis and results should be correlated with mammographic findings. Electronically signed and approved by: Mark Nino D.O. Radiologis
== END | disposition home or self-care (01) ==
LOC: RADMAMWWP 16:03
PROVIDERS: ATTEND Family Medicine
DX: Z12.31 Encounter for screening mammogram for malignant neoplasm of breast (principal); Z78.0 Asymptomatic menopausal state
CPT/HCPCS: 77063; 77067

== ENCOUNTER → 2023-06-13 | Outpatient (CLI) | payer MEDICARE, OTHER ==
--- NOTE | 2023-06-15 20:54 | BD ---
EXAMINATION TYPE: Axial Bone Density DATE OF EXAM: 06/13/2023 CLINICAL HISTORY: 63 years old Female. ICD-10 CODE: Z78.0 ASYMPTOMATIC MENOPAUSAL STATE Height: 64.75" Weight: 129.3lbs FRAX RISK QUESTIONS: Alcohol (3 or more units per day): No Family History (Parent hip fracture): No Glucocorticoids (More than 3mos): No (Ex: prednisone, prednisolone, methylprednisolone, dexamethasone, and hydrocortisone). History of Fracture in Adulthood: No Secondary Osteoporosis: 1. Type 1 Diabetes: No 2. Hyperthyroidism: No 3. Menopause before 45: Yes 4. Malnutrition: No 5. Chronic liver disease: Hx of liver cancer Rheumatoid Arthritis: Yes Current Tobacco Use: No RISK FACTORS HISTORY OF: Hip Fracture (Right/Left): No Spine Fracture: No History of Wrist Fracture: Yes Surgery to Spine/Hip(right/left)/Wrist (right/left): Yes bilat wrists Family History of Osteoporosis: No Active: Yes Diet low in dairy products/other sources of calcium: No Postmenopausal woman: Yes Lost more than 2 inches in height since high school: No Frequent falls: No Poor Health: No Hyperparathyroidism: No Adrenal Insufficiency: No MEDICATIONS: Prednisone or other steroids: No Thyroid Medications: No Osteoporosis Medications: No Additional Medications: blood pressure meds, cholesterol meds, reflux medication, anti-anxiety meds Additional History: 2020 patient had liver sx for cancer and chemotherapy EXAM MEASUREMENTS: Bone mineral densitometry was performed using the [employer] System. Bone mineral density as measured about the Lumbar spine is: ----- L1-L4(G/cm2): 1.047 T Score Values are as follows: ----- L1: -2.0 ----- L2: -2.6 ----- L3: -0.9 ----- L4: 0.4 ----- L1-L4: -1.1 Z Score Values are as follows: ----- L1: -0.2 ----- L2: -0.8 ----- L3: 0.9 ----- L4: 2.2 ----- L1-L4: 0.7 Bone mineral density has: decreased 12.2% since study of: 12/31/2017 Bone mineral density about the R hip (g/cm2): 0.729 Bone mineral density about the L hip (g/cm2): 0.722 T Score values are as follows: -----R Neck: -2.2 -----L Neck: -2.5 -----R Total: -2.2 -----L Total: -2.3 Z Score values are as follows: -----R Neck: -0.6 -----L Neck: -0.9 -----R Total: -0.9 -----L Total: -0.9 Bone mineral density has: decreased 12.6% since study of: 12/31/2017 FRAX%s: The graph provided illustrates a 12.1% chance for a major osteoporotic fx and a 2.7% chance f or the hips probability for fx in 10 years time. IMPRESSION: Osteoporosis (T Score less than -2.5). There is increased fracture risk and therapy is usually indicated based on age. Re-Screen 1-2 years. NOTE: T-SCORE=SD OF THE YOUNG ADULT MEAN.
== END | disposition home or self-care (01) ==
LOC: RADBDWWP 11:15
PROVIDERS: ATTEND Family Medicine
DX: M81.0 Age-related osteoporosis without current pathological fracture (principal); M85.89 Other specified disorders of bone density and structure, multiple sites; Z78.0 Asymptomatic menopausal state
CPT/HCPCS: 77080

== ENCOUNTER → 2024-04-30 | Outpatient (CLI) | payer MEDICARE, OTHER ==
[2024-04-30 20:18] LABS: Chol/HDL Ratio 3.21 Ratio; LDL Cholesterol,Calculated 85.4 mg/dL (0.0-131.0)
[2024-04-30 20:19] LABS: ALT 11 U/L (8-44); AST 23 U/L (13-35); Albumin 4.1 g/dL (3.8-4.9); Albumin/Globulin Ratio 1.58 Ratio (1.60-3.17); Alkaline Phosphatase 151 U/L (41-126); BUN/Creat Ratio 10.56 Ratio (12.00-20.00); Blood Urea Nitrogen 9.5 mg/dL (9.0-27.0); Calcium 9.6 mg/dL (8.7-10.3); Carbon Dioxide 27.2 mmol/L (21.6-31.8); Chloride 103 mmol/L (96-109); Globulin 2.6 g/dL (1.6-3.3); Glucose 87 mg/dL (70-110); Potassium 4.7 mmol/L (3.5-5.5); Sodium 141 mmol/L (135-145); Total Bilirubin 0.6 mg/dL (0.3-1.2); Total Protein 6.7 g/dL (6.2-8.2)
== END | disposition home or self-care (01) ==
LOC: LABWHC1 13:04
PROVIDERS: ATTEND Nurse Practitioner Adult Health
DX: I42.8 Other cardiomyopathies (principal); E78.2 Mixed hyperlipidemia
CPT/HCPCS: 36415; 80053; 80061